=== PATIENT | female | born 1950 | race Caucasian/White ===

== ENCOUNTER 2020-04-07 11:11 | Emergency (ER) | payer MEDICARE, SELFPAY ==
[2020-04-07 11:14] VITALS: BP 153/82; PULSE 99; RESP 20; TEMP 35.8; O2SAT 98
--- NOTE | 2020-04-07 12:37 | XR_ITS ---
EXAMINATION: XR CHEST CLINICAL INFORMATION: Difficulty breathing COMPARISON: Previous chest x-ray May 2015 TECHNIQUE: Frontal view of the chest was obtained. FINDINGS: The cardiac and mediastinal contours are stable. The lungs are clear. There is no pleural effusion or pneumothorax. There are surgical anchors projecting over the left humeral head. XR/XR chest 1V IMPRESSION: No evidence for acute disease in the chest.
--- NOTE | 2020-04-07 12:57 | PC.NURSE ---
Patient reporting SOB, headaches, and flu like symptoms. Well appearing, ambulates with balanced and steady gait. Skin PWD. Swabbed patient for respiratory panel. Pt aware of plan for imaging. Awaiting results.
--- NOTE | 2020-04-07 13:12 | ED_ITS ---
HPI - URI/Sore Throat General Chief Complaint: Dyspnea Stated Complaint: SOB,LEG PAINS,WEAK,HEADACHE Time Seen by Provider: 04/07/20 12:36 Source: patient Mode of arrival: ambulatory Limitations: no limitations History of Present Illness HPI Narrative: 70 y/o female with history of anxiety, depression, former smoker who presents with generalized malaise, myalgias, dry cough, and SOB x 9 days. She is concerned she has COVID-19. She is up to date on her flu vaccine. She denies known COVID-19 exposure. She lives with her who is healthy. She denies fevers, chest pain, abd pain, N/V/D. She admits to chills, mild SCOTT more than her baseline and upset stomach at times. She is eating and drinking normally. MD elicited complaint: cough Onset (ago): day(s) (9) Consistency: constant Severity: moderate Able to tolerate fluids by mouth: Yes Exacerbating factors: exertion Relieving factors: cough suppressant Associated symptoms: chills, myalgias, headache, nasal congestion, cough and shortness of breath Treatments prior to arrival: none Related Data Home Medications Medication Instructions Recorded Confirmed lorazepam 1 tab PO BID 04/07/20 04/07/20 oxycodone-acetaminophen 1 tab PO Q12H PRN 04/07/20 04/07/20 sertraline 2 tab PO DAILY 04/07/20 04/07/20 Allergies Allergy/AdvReac Type Severity Reaction Status Date / Time No Known Allergies Allergy Unverified 01/30/20 16:05 [No Known Allergies*] Review of Systems Review of Systems: Constitutional: No Fever, + Chills ENT/Mouth: No sore throat, No Rhinorrhea, No Swallowing Difficulty Eyes: No Eye Pain, No Swelling, No Redness Cardiovascular: No Chest Pain, + SOB, No Orthopnea, No Edema Respiratory: + Cough, No Sputum, No Wheezing, + dyspnea Gastrointestinal: No Nausea, No Vomiting, No Diarrhea, No abdominal Pain Genitourinary: No Dysuria, No Urinary Frequency, No Hematuria Musculoskeletal: No joint pain, + Myalgias Skin: No Skin Lesions, No rash Neuro: + Weakness, No Numbness, No Dizziness, + Headache Psych: No Anxiety/Panic, No Depression Heme/Lymph: No Bruising, No Lymphadenopathy Endocrine: No Polyuria, No Polydipsia [facility] Past Medical History Attestation statement: The following information was validated with the patient. Medical History Anxiety Arthritis Depression Osteoporosis Social History Social History Alcohol intake: never Smoking Status: Unknown if ever smoked Use of substances other than those prescribed or required for medical reasons: No Advance Directives: No Advance Directives Information Provided: Yes Physical Exam Vital Signs: Vital Signs: Last Vital Signs Temp 96.4 F L 04/07/20 11:14 Pulse 99 04/07/20 11:14 Resp 20 04/07/20 11:14 BP 153/82 H 04/07/20 11:14 Pulse Ox 98 04/07/20 11:14 Body Mass Index 30.0 Appearance: Alert. Oriented X3. No acute distress. Appears non-toxic Eyes: Pupils equal, round and reactive to light. ENT: Pharynx normal. Neck: Normal inspection. Neck supple. CVS: Normal heart rate and rhythm. Pulses normal. Respiratory: No respiratory distress. Breath sounds normal. Abdomen: obese, Soft and nontender. +BS x4 Skin: Skin warm and dry. Normal skin color. Normal skin turgor. No rashes. Extremities: No lower extremity edema. Neuro: Oriented X 3. No motor deficit. No sensory deficit. Course Course Course Narrative: 70 y/o female presenting with symptoms concerning for COVID- 19. She appears well and vitals are stable. Lungs are clear. CXR and resp panel pending. Reevaluation(s) Reevaluation #1: CXR and resp panel are negative. It is likely her symptoms are viral in etiology. She is tolerating PO, vitally stable and appears well. She is stable for discharge with symptomatic management. She will f/u with her PCP next week. MDM - URI/Sore Throat Differential Diagnosis Differential diagnosis: Likely upper respiratory infection, croup, otitis media, sinusitis, viral infection, bronchitis, influenza and pharyngitis Medical Records Attestation: I reviewed the patient's medical records. Lab Data Attestation: I reviewed the patient's lab results. Labs: Lab Results 04/07/20 Range/Units 12:50 Coronavirus (PCR) NEGATIVE (Negative) Influenza Type A (PCR) NEGATIVE (Negative) Influenza Type B (PCR) NEGATIVE (Negative) RSV RNA Qual (PCR) NEGATIVE (Negative) Critical Care Time Critical Care Time Critical Care Time: No Discharge Plan Discharge Clinical Impression: Acute viral syndrome Patient Disposition: Home, Self-Care Instructions: Viral Syndrome (ED) Additional Instructions: Your chest x-ray was normal. Your COVID-19, influenza and RSV panel was NEGATIVE. It is likely your symptoms are from another type of viral syndrome. Continue to stay hydrated. Rest. Take over the counter cold and flu medications as needed for your symptoms. Use your inhaler as needed for shortness of breath. Follow up with your doctor this week. If you have worsening symptoms, or develop difficulty breathing or chest pain call 911 or come back to the ER for further evaluation. Prescriptions: No Action sertraline 100 mg tablet 2 tab PO DAILY RF: 0 oxycodone-acetaminophen 5-325 mg tablet 1 tab PO Q12H PRN (Reason: pain) RF: 0 lorazepam 1 mg tablet 1 tab PO BID RF: 0 Discharge Date/Time: 04/07/20 15:20
[2020-04-07 13:50] LABS: Influenza A PCR NEGATIVE (Negative); Influenza B PCR NEGATIVE (Negative); Resp Syncy Virus RNA Qual PCR NEGATIVE (Negative); SARS COV2 PCR INHOUSE NEGATIVE (Negative)
== END 2020-04-07 15:20 | disposition home or self-care (01) ==
PROVIDERS: Physician Assistant; Emergency Provider Emergency Medicine Emergency Medical Services; PCP Internal Medicine
DX: B34.9 Viral infection, unspecified (principal); R05 Cough; M79.605 Pain in left leg; M79.604 Pain in right leg; Z20.828 Contact with and (suspected) exposure to other viral communicable diseases; Z79.899 Other long term (current) drug therapy
CPT/HCPCS: 0241U; 71045; 99283

== ENCOUNTER 2023-06-19 08:02 | Outpatient (AMB) | payer MEDICARE, SELFPAY ==
[2023-06-19 08:13] VITALS: BP 128/74; PULSE 80; TEMP 36.6; O2SAT 97; BMI 31.8
--- NOTE | 2023-06-19 08:13 | AM.OFFWIN_ITS ---
Intake Vital Signs 06/19/23 08:13 Height 5 ft 4 in Weight 83.915 kg BMI 31.8 BP 128/74 Blood Pressure Location Lt brachial Position Sitting Pulse 80 Pulse Source Pulse Oximeter Temp 97.9 F Temp Source Oral Pulse Oximetry (%) 97 Oxygen Delivery Method Room Air Intake Visit Reasons: EST/possible bite on lip (lobby) Intake Note: pt is here for c.o possible infection in lip, redness, swelling Patient Tobacco Use Status: Former Tobacco user Allergies No Known Allergies [No Known Allergies*] Allergy (Verified 06/19/23 08:14) Do you need a note to return to daycare/school/sports/work: No HPI HPI Comments History of Present Illness Details [id number] 73-year-old female presents with redness below right nares and into right upper lip started a few days ago after she popped a pimple but she has not sure if something bit her. Denies fevers, chills, numbness, tingling, difficulty breathing. Patient is not on an NURA inhibitor Physical exam Pharynx normal. Patent airway. Uvula midline. Normal dentition no abscess. Speaking in full sentences controlling secretions well ?+ patient is noted to have folliculitis to the distal aspect of nares with overlying erythema and warmth in associated swelling to right upper lip. Likely folliculitis with superimposed cellulitis. Unlikely necrotizing infection, dental abscess, angioedema, anaphylaxis, acute respiratory distress, threat to airway. Educated patient on diagnosis and treatment plan, answered all question, patient verbalizes understanding. At this time patient will be discharged home, advised to return with new or worsening symptoms. Educated on worrisome signs and symptoms and when to return. At this time I feel comfortable discharge home. [facility] Medical History Arthritis Osteoporosis Depression Anxiety Social History Alcohol intake: never Patient Tobacco Use Status: Former Tobacco user Review of Systems Const Details: Constitutional : No Weight loss, No Fever, No Chills, No Fatigue, No Malaise ENT/Mouth : No sore throat, No Rhinorrhea Eyes: No Eye Pain, No Swelling, No Redness Cardiovascular : No Chest Pain, No SOB, No Dyspnea on Exertion, No Orthopnea, No Edema, No Palpitations Respiratory : No Cough, No Sputum, No Wheezing Gastrointestinal : No Nausea, No Vomiting, No Diarrhea, No Constipation, No abdominal Pain, No Hematochezia, No Melena Genitourinary : No Dysuria, No Urinary Frequency, No Hematuria, Musculoskeletal : No joint pain, No Myalgias, No Joint Swelling Skin : + Skin Lesions, No rash Neuro : No Weakness, No Numbness, No Dizziness, No Headache Psych : No Anxiety/Panic, No Depression All other systems reviewed and are negative All systems reviewed & are unremarkable except as noted in HPI and below Physical Exam Vital Signs: Last Vital Signs Temp 97.9 F 06/19/23 08:13 Pulse 80 06/19/23 08:13 BP 128/74 06/19/23 08:13 Pulse Ox 97 06/19/23 08:13 Oxygen Delivery Method Room Air 06/19/23 08:13 BMI result Body Mass Index 31.8 Vital signs stable Appearance: Alert.? Oriented X3.? No acute distress.? Head: Normocephalic, atraumatic, no step-offs or deformities Eyes: Pupils equal, round and reactive to light.? ENT: Pharynx normal. Patent airway. Uvula midline. Normal dentition no abscess. Speaking in full sentences controlling secretions well ?+ patient is noted to have folliculitis to the distal aspect of nares with overlying erythema and warmth in associated swelling to right upper lip. Neck: Normal inspection.? Neck supple.? CVS: Normal heart rate and rhythm.? Pulses normal.? Respiratory: No respiratory distress.? Breath sounds normal.? Abdomen: Soft and nontender.? Skin: Skin warm and dry.? Normal skin color.? Normal skin turgor.? Extremities: No lower extremity edema.? No calf ttp. 5/5 strength to bilateral upper and lower extremities Back: No midline tenderness, no C-spine tenderness, full range of motion, no CVA tenderness bilaterally Neuro: Oriented X 3.? No motor deficit.? No sensory deficit. CN 2-12 intact Assessment & Plan Assessment & Plan (1) Folliculitis: Code(s): L73.9 - Follicular disorder, unspecified (2) Cellulitis: Code(s): L03.90 - Cellulitis, unspecified Plan Take your medications as prescribed. If you were prescribed antibiotics today, it is important that you take your medication to their entirety, do not skip any doses, do not finish them early. Follow-up with your primary care provider this week. Return to the emergency department with new or worsening symptoms. Such as fevers, chills, chest pain, shortness of breath, nausea, vomiting, dizziness, headache, vision changes, lethargy In case of emergency call 911 Medications: New doxycycline hyclate 100 mg PO BID 14 caps 0RF 7 days cephalexin 500 mg PO QID 28 caps 0RF 7 days Coding Level of Care Code Est Pt Level 3 (83206) Diagnoses Folliculitis L73.9 Cellulitis L03.90
== END 2023-06-19 08:38 | disposition home or self-care (01) ==
PROVIDERS: PCP Internal Medicine; Visit Provider Physician Assistant
DX: L73.9 Follicular disorder, unspecified (principal); L03.90 Cellulitis, unspecified
CPT/HCPCS: 99213

== ENCOUNTER 2024-06-05 13:50 | Outpatient (AMB) | payer MEDICARE, SELFPAY ==
--- NOTE | 2024-06-05 14:00 | A.SPINEOV_ITS ---
Vital Signs 06/05/24 14:23 Height 5 ft 4 in Weight 179 lb BMI 30.7 Intake Visit Reasons: lower back pain Intake Note: Ms. David is here today c/o Low back pain. Manager Documentation Required: No Allergies No Known Allergies [No Known Allergies*] Allergy (Verified 06/05/24 14:27) Physical Exam Vital Signs: BMI result Body Mass Index 30.7 Assessment & Plan Assessment & Plan (1) Lumbago: Code(s): M54.50 - Low back pain, unspecified Category: Medical Plan Dear colleague, Thank you for referring Haydee to our office today. She is a pleasant 74-year-old female who comes in today with a chief complaint of low back pain and intermittent pains in her bilateral lower extremities. She had a somewhat difficult time describing her history. She does not describe her lower extremity pain as a shooting or radicular pain, but states that she gets random shots of pain down her legs and into her back intermittently. She was unable to elaborate further about this. She states that her back pain is worse than her leg pain by far. Alongside this, she reports her other most troubling symptoms that she has constant numbness and tingling in her bilateral toes, worse on the left side. She states that it is difficult for her to walk long distances and she is only able to walk about half a block without needing to stop and rest. If she is able to stop and rest and sit for a while she can get back up and continue walking. She states that positionally walking causes her the worst pain in her back, & laying down helps relieve her pain the most. She has been to physical therapy but could only complete 6 sessions due to the pain. She has attempted cortisone injections with [facility] in [place], but reports she obtained little to no relief from the injections. She is unsure what levels she had injections at. She has also attempted care management assistant in the past. She is currently taking oxycodone, gabapentin and Tylenol all in an effort to help mitigate her pain. She has been evaluated by a neurosurgeon in the past, who was unable to offer any specific intervention to relieve these symptoms. PMH: Asthma, depression, hypothyroidism, vitamin-D deficiency, unspecified left knee surgery, unspecified finger surgery, left rotator cuff repair. Social hx: The patient does not smoke, reports no substance use. Medications: See [facility] list. Allergies: NKDA. Physical exam: The patient has 5/5 strength in her upper and lower extremities. She ambulates without an antalgic or spastic gait but does have to brace herself on the chair in order to rise from seated position. No significant sensational deficits. Reflexes are 1+ hypoactive in the bilateral patella. They are 2+ normal elsewhere. (-) Morley's, (-) clonus, (-) bilateral straight leg raise. Imaging review: MRI of the lumbar spine completed at [facility] in March of 2024 shows posterior disc bulge at L5-S1 causing moderate right- sided and severe left-sided foraminal stenosis. No significant central canal stenosis. Impression: Haydee is a pleasant 74-year-old female who comes in today with a chief complaint of low back pain, intermittent unspecified leg pains with ambulation, and bilateral toe numbness. The only real meaningful pathology I am able to identify on her MRI imaging is a posterior disc bulge at L5-S1 that is causing bilateral foraminal stenosis. Typically if this were a patient was suffering from neurogenic claudication there would also be a relatively significant degree of central canal stenosis. I would expect a patient with her imaging to have well-defined radicular pain worse in the left side. This does not appear to be the case with Haydee, who predominantly has low back pain and does not seem to be suffering from any specific radicular pain down her legs. Due to lack of consistency between her reported history in her imaging I would like to obtain her injection records from [facility] to see if the L5-S1 area was addressed. If she had injections here already which did not provide her with any relief then I do not believe she has a good surgical candidate at this time. If she has not had injections there as of yet, I would be inclined to refer her for an epidural steroid injection at this level to see if it does in fact relieve her pain, thereby making it a more reasonable surgical target. I will call and update the patient once we have her records. Thank you for allowing us to care for your patient. The total time spent with this visit with this patient was 45 minutes reviewing history, physical exam, MRI imaging review, and implementation of treatment plan or further diagnostic testing Pastor Chen MD,PhD [facility] Coding Level of Care Code New Pt Level 4 (49732) Diagnoses Lumbago M54.50
[2024-06-05 14:23] VITALS: BMI 30.7
== END 2024-06-05 14:56 | disposition home or self-care (01) ==
PROVIDERS: PCP Internal Medicine; Referring Provider Internal Medicine; Visit Provider Physician Assistant
DX: M54.50 Low back pain, unspecified (principal)
CPT/HCPCS: 99204

== ENCOUNTER → 2024-06-05 13:50 | Outpatient (BNVA) | payer MEDICARE, SELFPAY | PROVIDERS: PCP Internal Medicine; Referring Provider Internal Medicine; Visit Provider Physician Assistant | DX: M54.50 Low back pain, unspecified (principal) | CPT/HCPCS: 99202 ==

== ENCOUNTER 2024-08-01 10:24 | Outpatient (AMB) | payer MEDICARE, SELFPAY ==
--- NOTE | 2024-08-01 10:25 | A.SPINEOV_ITS ---
Intake Visit Reasons: discuss sx Intake Note: Ms. David is here today to discuss surgery. Chief Credit Officer Required: No Allergies No Known Allergies [No Known Allergies*] Allergy (Verified 08/01/24 10:27) Assessment & Plan Assessment & Plan (1) Lumbago: Code(s): M54.50 - Low back pain, unspecified Category: Medical Plan HPI: Haydee comes in today for a subsequent office visit to discuss the possibility of surgery. To recap she has DDD with a posterior disc bulge at L5- S1. Her images were reviewed by Dr. Chen who is willing to offer her a L5- S1 TLIF to address both the posterior disc bulge and the degeneration. She reports continued fairly severe low back pain and some intermittent leg pain bilaterally. We discussed the proposed surgical procedure using the spine models that we have in office today. I described the surgical approach, the instrumentation that will be used, and the postoperative healing course. She was accompanied by her son to this visit and they both asked several questions regarding the surgery, all of which I answered to the best of my ability. PMhx: The patient reports no changes to her past medical history. She reports no history of anticoagulation, does not take aspirin, and has no cardiovascular or pulmonary conditions, other than intermittent asthma. Medication: Patient reports no changes in her current medication regimen. Allergies: The patient reports no changes to her allergies. Plan: After extensive discussion, Haydee reported she would like to proceed with surgery. She will likely need multimodal pain control after surgery as she is currently on Oxycodone 5mg QID for her severe low back pain, and the chronic pain she has in her left knee and left shoulder (Hx left patella fracture & left rortator cuff repair). She understands she will need to stop Meloxicam 7 days before surgery. Devaughn was given risk and benefits of surgery including but not limited to infection, hematoma, nerve injury, durotomy, weakness, bowel/bladder injury, persistent pain, as well as the option to continue with conservative treatment and patient wishes to proceed with surgery. They are aware they should stop NSAIDs 7 days prior to surgery. All questions were answered to the best of our ability. If there is anything about this patients medical history that we have overlooked or concerns you have about us proceeding with surgery we would appreciate any input you can offer. Pastor Chen MD,PhD [facility] Coding Level of Care Code Est Pt Level 3 (74417) Diagnoses Lumbago M54.50
--- OUTSIDE RECORDS SUMMARY | 2024-08-01 11:53 | XMS_ITS | Data Portability ---
Author Organization ELENA drake [facility] Address [address] [place] [address] Care Team Providers Care Information Operator Name Role Phone DARLENE MCCABE Primary Care Provider [phone] Assessment Encounter Date Assessment Date Assessment LastModified by Organization Details LastModified Time 07/15/2022 07/15/2022 Patient was seen in the office today for nausea. Reviewed history regarding recent illness, medications, symptoms, and physical exam. Studies ordered as below. Discussed plan with , who expresses understanding . Follow up as noted below. [email or web address] Not available 07/15/2022 14:04:42 Plan of Treatment Reminders Order Date Submit Date Provider Last Modified By Organization Details Last Modified Time Details Appointments None recorded. Lab urinalysis, dipstick 2022 023 [email or web address] 247 _[facility], [address] [place] [address], [phone], 3 15:59:10 glucose, fingerstick , blood 2022 023 [email or web address] 247 _[facility], [address] [place] [address], [address], 15:59:10 Referral None recorded. Procedures None recorded. Surgeries None recorded. Imaging electrocard iogram 2022 023 [email or web address] [address], [address], 16:15:59 Medication Orders None recorded. Patient TargetsNo targets recorded. Patient Instructions Encounter Date Encounter Id Patient Instructions Last Modified By Organization Details Last Modified Time 07/15/2022 [id number] Try small amount s of clear liquids frequently. If vomiting occurs, wait 30-60 minutes before trying clear liquids again. Once you are able to tolerate clear liquids for at least 6 hours without vomiting, you can advance to a soft diet consisting of foods such as bananas, rice, applesauce, toast, crackers, and other foods rich in carbohydrates and low on fats and spices. If the diet is tolerated for 12-24 hours, you can slowly add other foods to your diet. If vomiting occurs, you should go back to clear liquids only and work your way back to a normal diet as outlined above. If much worse, you should seek treatment immediately. [email or web address] Not available 07/15/2022 14:04:42 Reason for Referral None Reported. Results Created Date Observation Date Name Description Value Unit Range Abnormal Flag Note LastModifiedBy Organization Detail LastModifiedTime 07/16/1907/15/2022 gluco ion reale rstic k, blood blood sugar - non fasting 97 mg/dL 80-140 = normal normal Not Available maegan [address] [place], [address], 07/15/2022 15:17:54 07/16/1907/15/2022 gluco se finge rstic k, blood blood sugar - fasting mg/dL 80-125 = normal Not Available maegan [address] [place], [address], 07/15/2022 15:17:54 07/16/1907/15/2022 urina lysis , dipst ick Unknown Analyte Normal = light yellow Not Available arlyn bowers [address] [place], [address], 07/15/2022 14:33:59 07/16/1907/15/2022 urina lysis , dipst ick Unknown Analyte Yellow Not Available maegan [address] [place], [address], 07/15/2022 14:33:59 07/16/19 23 07/15/2022 urina lysis , dipst ick Unknown Analyte Normal = clear Not Available arlyn bowers [address], [place], [address], 07/15/2022 14:33:59 07/16/19 23 07/15/2022 urina lysis , dipst ick Unknown Analyte Clear Not Available maegan [address], [place], [place], [address], 07/15/2022 14:33:59 07/16/19 23 07/15/2022 urina lysis , dipst ick Unknown Analyte Normal = negati ve Not Available arlyn bowers [address], [place], [address], 07/15/2022 14:33:59 07/16/19 23 07/15/2022 urina lysis , dipst ick Unknown Analyte Negati ve Not Available arlyn bowers [address], [place], [address], 07/15/2022 14:33:59 07/16/19 23 07/15/2022 urina lysis , dipst ick Unknown Analyte Normal = Negati ve Not Available arlyn bowers [address], [place], [address], 07/15/2022 14:33:59 07/16/19 23 07/15/2022 urina lysis , dipst ick Unknown Analyte Negati ve Not Available arlyn bowers [address], [place], [address], 07/15/2022 14:33:59 07/16/19 23 07/15/2022 urina lysis , dipst ick Unknown Analyte Normal = Negati ve Not Available arlyn bowers [address], [place], [address], 07/15/2022 14:33:59 07/16/19 23 07/15/2022 urina lysis , dipst ick Unknown Analyte Negati ve Not Available [address]arlyn [address], [place], [address], 07/15/2022 14:33:59 07/16/19 23 07/15/2022 urina lysis , dipst ick Unknown Analyte Normal = 1.010, 1.015, 1.020 Not Available [address] [place] [address], [place], [address], 07/15/2022 14:33:59 07/16/19 23 07/15/2022 urina lysis , dipst ick Unknown Analyte 1.020 Not Available [address], [place], [address], 07/15/2022 14:33:59 07/16/19 23 07/15/2022 urina lysis , dipst ick Unknown Analyte Normal = Negati ve Not Available [address] [place] [address], [place], [address], 07/15/2022 14:33:59 07/16/19 23 07/15/2022 urina lysis , dipst ick Unknown Analyte Trace- intact Not Available [address] [place] [address], [place], [address], 07/15/2022 14:33:59 07/16/19 23 07/15/2022 urina lysis , dipst ick Unknown Analyte Normal = 6.5, 7.0, 7.5, 8.0 Not Available [address] [place] [address], [place], [address], 07/15/2022 14:33:59 07/16/19 23 07/15/2022 urina lysis , dipst ick Unknown Analyte 7.0 Not Available maegan [address], [place], [address], 07/15/2022 14:33:59 07/16/19 23 07/15/2022 urina lysis , dipst ick Unknown Analyte Normal = Negati ve Not Available arlyn bowers [address], [place], [place], [address], 07/15/2022 14:33:59 07/16/19 23 07/15/2022 urina lysis , dipst ick Unknown Analyte Negati ve Not Available arlyn bowers [address], [place], [place], [address], 07/15/2022 14:33:59 07/16/19 23 07/15/2022 urina lysis , dipst ick Unknown Analyte Normal = 0.2, 1.0 Not Available arlyn bowers [address], [place], [place], [address], 07/15/2022 14:33:59 07/16/19 23 07/15/2022 urina lysis , dipst ick Unknown Analyte 0.2 E.U./d L Not Available arlyn bowers [address], [place], [address], 07/15/2022 14:33:59 07/16/19 23 07/15/2022 urina lysis , dipst ick Unknown Analyte Normal = Negati ve Not Available arlyn bowers [address], [place], [address], 07/15/2022 14:33:59 07/16/19 23 07/15/2022 urina lysis , dipst ick Unknown Analyte Negati ve Not Available arlyn bowers [address], [place], [address], 07/15/2022 14:33:59 07/16/19 23 07/15/2022 urina lysis , dipst ick Unknown Analyte Normal = Negati ve Not Available [facility] [address] [facility], [place], [address], 07/15/2022 14:33:59 07/16/19 23 07/15/2022 urina lysis , dipst ick Unknown Analyte Negati ve Not Available 20[address] [address] [facility], [place], [address], 07/15/2022 14:33:59 07/16/19 23 07/15/2022 elect aarti ruizgr am No observ ation record ed. [id number] [address], [place], [address], 07/15/2022 15:59:11 Result Notes None recorded. Problems Name Problem SNOMED Code Status Onset Date Resolution Date Notes Provider Name and Address Organization Details Recorded Time Anxiety 53437514 Active 2022 Cahna diaz, [place] - [facility] 14:07:42 Fibromyalgia 841184904 Active 2022 Chana diaz, PA - [facility] 14:07:57 Arthritis 7115306 Active 2022 Chana Coyle null, PA - [facility] 14:08:03 Hypothyroidism 85279341 Active 2022 Chana Coyle null, PA - [facility] 14:08:11 Sleep apnea 21768001 Active 2022 Chana diaz, PA - [facility] 14:09:13 Problem Notes None recorded. Procedures Surgical History Date Name Laterality Status Provider Name and Address Organization Details Recorded Time operative procedure on knee completed Chana Coyle PA - [facility] 07/15/2022 14:09:51 hernia repair completed Chana Garciajessica Brunson A - [facility] 07/15/2022 14:09:56 procedure on shoulder completed Chana Hallpardeep PA - [facility] 07/15/2022 14:10:30 repair of finger completed Chana Garciajessica PA - [facility] 07/15/2022 14:10:43 Imaging Results Imaging Date Name Status LastModified by Organization Details LastModified Time 07/15/2022 electrocardiogram completed [id number] [address], [place], [address], 07/15/2022 15:59:11 Procedure Notes None recorded. Medical Equipment None Reported. Allergies No known drug allergies Medications Name Sig Start Date Stop Date Status Note LastModified by Organization Details LastModified Time doxycycline hyclate 100 mg capsule TAKE 1 CAPSULE BY MOUTH TWICE DAILY FOR 7 DAYS FOR INFECTION 07/15 completed Not Available Not Available Not Available tizanidine 4 mg tablet TAKE 1 TABLET BY MOUTH THREE TIMES DAILY NEEDED active Not Available Not Available No t Available meloxicam 15 mg tablet TAKE 1 TABLET BY MOUTH DAILY active Not Available Not Available No t Available prednisone 20 mg tablet PLEASE SEE ATTACHED FOR DETAILED DIRECTION S 07/15 completed Not Available Not Available Not Available sertraline 100 mg tablet TAKE 2 TABLETS BY MOUTH DAILY active Not Available Not Available No t Available sulfamethox azole 800 mg-trimetho prim 160 mg tablet TAKE 1 TABLET BY MOUTH TWICE DAILY FOR 5 DAYS 07/15 completed Not Available Not Available Not Available levothyroxi ne 25 mcg tablet TAKE 1 TABLET BY MOUTH DAILY active Not Available Not Available No t Available oxycodone-a cetaminophe n 5 mg-325 mg tablet TAKE 1 TABLET BY MOUTH DAILY NEEDED FOR PAIN active Not Available Not Available No t Available amoxicillin 875 mg tablet TAKE 1 TABLET BY MOUTH TWICE DAILY FOR 10 DAYS FOR INFECTION 07/15 completed Not Available Not Available Not Available lorazepam 0.5 mg tablet TAKE 1 TABLET BY MOUTH DAILY NEEDED FOR ANXIETY active Not Available Not Available No t Available cephalexin 500 mg capsule TAKE 1 CAPSULE BY MOUTH THREE TIMES DAILY 07/15 completed Not Available Not Available Not Available betamethaso ne dipropionat e 0.05 % topical cream APPLY SMALL AMOUNT TOPICALLY TO THE AFFECTED AREA TWICE DAILY 07/15 completed Not Available Not Available Not Available gabapentin 100 mg capsule TAKE 1 CAPSULE BY MOUTH THREE TIMES DAILY 07/15 completed Not Available Not Available Not Available lorazepam 1 mg tablet TAKE 1 TABLET BY MOUTH EVERY DAY NEEDED FOR ANXIETY FOR 14 DAYS THEN TAKE ONE-HALF TABLET BY MOUTH EVERY DAY Q00OWDR THEN STOP 07/15 completed Not Available Not Available Not Available nitrofurant oin monohydrate /macrocryst als 100 mg capsule TAKE 1 CAPSULE BY MOUTH TWICE DAILY FOR 5 DAYS 07/15 completed Not Available Not Available Not Available BinaxNOW COVID-19 Ag Self Test kit FOLLOW PACKAGE DIRECTION S 07/15 completed Not Available Not Available Not Available Vitals Date Recorded Body height Body mass index (BMI) Body weight Pain severity - 0-10 verbal numeric rating [Score] - Reported Oxygen saturation Oxygen saturation in Arterial blood by Pulse oximetry Heart rate Respiratory rate Body temperature Systolic blood pressure Diastolic blood pressure Provider Name and Address Organization Details Last Updated DateTime 3 162.56 cm 30.9 kg/m2 70867.6 3 g 8 97 % 97 % 108 /min 18 /min 98 [degF] 139 mm[Hg] 89 mm[Hg] Chana PARKER [facility] 14:14:42 Social History Question Answer Notes LastModified by Organizat ion Details LastModified Time Tobacco Smoking Status Former Smoker ELENA Shen [facility] 07/15/2022 14:09:06 What Is Your Level Of Alcohol Consumption? Occasional Once A Month Information not available 07/15/2022 When Did You Quit Smoking? 11-15yearssinc elastcigarette Information not available 07/15/2022 Do You Use Any Illicit Or Recreational Drugs? No Information not available 07/15/2022 Have You Recently Traveled Abroad? No Information not available 07/15/2022 Do You Or Have You Ever Used Any Other Forms Of Tobacco Or Nicotine? No Information not available 07/15/2022 Sex: Unknown Functional Status None recorded. Mental Status None recorded. Family History Relationship Description Onset Age of this Age Resolved Age Notes LastModified by Organization Details LastModified Time Sister Diabetes mellitus [email or web address] Not available 2022 14:14:57 Medical History No medical history recorded. Gynecological HistoryNo gynecological history recorded. Obstetrics History GPAL:G 0 P 0 0 0 0 Past Encounters Encounter ID Performer Location Encounter Start Date Encounter Closed Date Diagnosis/Indication Diagnosis SNOMED-CT Code Diagnosis ICD10 Code Diagnosis Note [id number] [facility] [address] [place] [address] 03/31/2022 08:30:00 03/31/2022 09:20:42 [id number] [facility] [address] [place] [address] 01/06/2020 13:46:27 01/06/2020 15:52:51 [id number] AMBROSIO DUARTE MD [facility] [address] [place] [address] 07/15/2022 13:53:35 07/15/2022 16:15:59 Elevated blood-pressure reading without diagnosis of hypertension 449326711 R03.0 Lightheadedness 27319252 8 R42 Health Concerns Section Related Observation LastModified by Organization Detai ls LastModified Time None Recorded Concern Status LastModified by Organization Details LastModified Time None Recorded Advance Directives Directive None Recorded Payers Encounter Date Sequence Insurance Name Policy Number Policy Moreira Covered Member ID Moreira Member ID Guarantor Name 01/06/2020 1 [employer] - MEDICARE ADVANTAGE PLAN (MEDICARE REPLACEMENT HMO) [id number] Haydee David [id number] Haydee David 03/31/2022 1 [employer] - MEDICARE ADVANTAGE PLAN (MEDICARE REPLACEMENT HMO) [id number] Haydee David [id number] Haydee David 07/15/2022 1 [employer] [place] [place] MEDICARE ADVANTAGE [facility] (MEDICARE REPLACEMENT HMO) [id number] Haydee David [id number] Haydee David Notes Date Note Type Note Provider Name and Address Organization Details Recorded Time 07/15/2022 text/html Dizziness UCReported bypatient.Duration :intermittent episodes lasting: (few seconds each) Modifying Factors:change in position Associated Symptoms:no blurred vision; no foggy vision; no double vision; no eye pain; no hearing loss; no headache; no nausea; no vomiting; no facial numbness;popping noise in the ears;ears feel full;unsteadiness; anxiety or unsteady feelingsHypertensi on UCReported bypatient.source of patient informationpatient Notes:The elevated BP was noticed at another Doctor's office. She is receiving no medications for this. shakiness x3 days, headache, rapid heart rate, clammy, weak, and unsteady on feet since this am, pt vomited this am as well. Seen by another Doctor today for a back shot but could not get it because her blood press was too high. She was sent here for evaluation of he BP and dizziness. AMBROSIO DUARTE MD [address] [facility], [address], [place] - [facility] 07/15/2022 17:14:55 OBGyn Episode No OBEpisode recorded.
--- OUTSIDE RECORDS SUMMARY | 2024-08-01 11:53 | XMS_ITS | Clinical Summary ---
Author Organization [facility] [address] [facility] Address [address] [facility] [place] [address] Phone Care Team Providers Care Control Room Technician Name Role Phone Maya Wiggins MD Primary Care Provider [phone] Allergies Active Allergy Reactions Criticality Noted Date Comments Amoxicillin-Pot Clavulanate 02/11/20 20 Duloxetine Itching 07/11/2013 Escitalopram Itching 08/31/2015 Fluoxetine 09/28/2015 Disturbing dreams, nausea Risedronate Sodium 08/03/2005 hives Venlafaxine Itching 11/08/2012 Medications sertraline (ZOLOFT) 100 mg tablet Take 2 tablets (200 mg total) by mouth 1 (one) time each day. 05/03/20 23 Active diclofenac (VOLTAREN) 1 % topical gel Apply 2 g topically 2 times daily as needed (Pain). 01/14/20 23 Active CALCIUM-VITAMI N D3-MAGNESIUM ORAL Take by mouth. CALCIUM-MAGNE SIUM-VITAMIN D 500-250-125 MG-MG-UNIT OR TABS Active gabapentin (NEURONTIN) 100 mg capsule Take 2 capsules (200 mg total) by mouth 3 (three) times a day. 180 capsule 5 04/09/20 24 Active albuterol HFA (PROAIR HFA ; PROVENTIL HFA ; VENTOLIN HFA) 90 mcg/actuation inhaler Inhale 2 puffs by mouth every 6 (six) hours if needed for wheezing. Inhale 2 Puffs into the lungs 4 times daily as needed for Cough, Wheezing or Shortness of Breath. 6.7 g 05/22/19 25 Active ibuprofen (ADVIL,MOTRIN) 600 mg tablet Take 1 tablet (600 mg total) by mouth every 6 (six) hours if needed for mild pain or moderate pain. Take 1 Tablet by mouth every 6 hours as needed for Pain. 90 tablet 06/21/19 25 Active levothyroxine (SYNTHROID, LEVOTHROID) 25 mcg tablet TAKE 1 TABLET BY MOUTH DAILY 90 tablet 1 07/04/19 25 Active oxyCODONE-acet aminophen (PERCOCET) 5-325 mg per tablet Take 1 tablet by mouth 2 (two) times a day if needed for severe pain. Max Daily Amount: 2 tablets 56 tablet 07/10/19 25 Active LORazepam (ATIVAN) 0.5 mg tablet Take 1 tablet (0.5 mg total) by mouth 2 (two) times a day. Max Daily Amount: 1 mg 56 tablet 07/30/19 25 Active levothyroxine (SYNTHROID, LEVOTHROID) 25 mcg tablet Take 1 tablet (25 mcg total) by mouth 1 (one) time each day. 04/11/20 23 025 Discontinued LORazepam (ATIVAN) 0.5 mg tablet Take 1 tablet (0.5 mg total) by mouth 2 (two) times a day. Max Daily Amount: 1 mg 56 tablet 06/21/19 25 025 Discontinued(Re order) oxyCODONE-acet aminophen (PERCOCET) 5-325 mg per tablet Take 1 tablet by mouth 1 (one) time each day if needed for severe pain. Max Daily Amount: 1 tablet 28 tablet 06/21/19 25 025 Discontinued(Re order) Active Problems Problem Noted Date Diagnosed Date Age-related osteoporosis wit hout current pathological fracture 03/20/2024 Dysphagia 02/12/2024 Vomiting 02/12/2024 Esophageal stenosis 02/12/2024 Overview (02/12/2024): Benign-appearing on endoscopy. Dilated. 08/12/2021 Spinal stenosis of lumbar re gion with neurogenic claudication 09/23/2022 Overview (02/12/2024): Last Assessment & Plan: Ms. David describes classic symptoms of spinal stenosis. She has pulling and pain predominantly in the right buttock and posterior thigh that limits her ability to walk. The predominance of her stenosis is from epidural lipomatosis. She is not interested in surgery at this time and is going to make efforts towards weight loss. We talked about NSAIDs, physical therapy, acupuncture, yoga all as reasonable conservative treatments. She is going to make strides towards weight loss and will get back in touch with us if she would like to proceed with other treatments or surgery. Epidural lipomatosis 09/23/2022 Overview (02/12/2024): Last Assessment & Plan: Ms. David has low back pain and radiation to the right greater than left leg. She has spinal stenosis but mostly from epidural lipomatosis. We talked about weight gain and weight loss and calories in versus calories out. I recommended the book Eat to Live by Dr. Jeet Swain. We talked about the problems associated with surgery to remove epidural lipomatosis and how the significant fat stores in her body would likely replenish the epidural fat after we removed it. We talked about how if she lost some weight and still trouble, lumbar decompression surgery with removal of the epidural fat would be more reasonable. She is not interested in surgery at this time and will start making efforts towards losing weight. Acute pain of left shoulder 09/23/2022 Overview (02/12/2024): Last Assessment & Plan: Ms. David describes acute left shoulder pain especially when reaching the the arm out laterally and trying to move it backwards. I encouraged her to reach out to her primary care or her orthopedic surgeon. I showed her some exercises including walking the arm up the wall using the fingers so that she does not develop adhesive capsulitis. CASSY (stress urinary incontinence, female) 2021 Overview (02/12/2024): Last Assessment & Plan: Encouraged kegel exercises. Pulmonary nodules 02/08/2022 Overview (02/12/2024): LDCT yearly Esophageal stricture 04/26/2021 Pill dysphagia 12/24/2020 Radiculopathy of lumbosacral region 10/16/2020 Overview (02/12/2024): L5-S1, see EMG Bilateral low back pain 09/29/2020 Subclinical hypothyroidism 06/05/2020 Obese 12/13/2018 Presacral mass 06/21/2018 Overview (02/12/2024): S/p removal and hernia repair 11/2020 - Dr. De La Torre Abnormal CT scan, pelvis 04/30/2018 SCOTT (dyspnea on exertion) 08/04/2017 Overview (02/12/2024): Negative nuclear stress test. Likely COPD Obstructive sleep apnea 07/12/2017 Overview (02/12/2024): [facility] Home Polysomnogram: Date 07/10/2017; AHI 5, Unclassified apneas 0; Obstructive apneas 0; Central apneas 0; Mixed apneas 0; hypopneas 26; average oxygen saturation 94% (lowest 89% without saturations <88% for 5% or more of study) [facility] diagnostic polysomnogram 07/15/2021; weight 179; BMI 31. AHI 7. REM AHI 11. 1 central apnea and 11 hypopneas. Average oxygen saturation 94% with oxygen blu 85%. - Obstructive Sleep Apnea - mild; all hypopneas; no nocturnal hypoxemia by 2018 home sleep test and and 2021 polysomnogram. Note: 12/2019 Home Sleep Study did not reveal sleep apnea or nocturnal hypoxia. 2021 polysomnogram reveals mild sleep apnea. Fibromyalgia 03/20/2015 Overview (02/12/2024): Cymbalta and venlafaxine caused itching Generalized anxiety disorder 04/08/2013 Multiple thyroid nodules 04/25/2012 Overview (02/12/2024): Small thyroid nodules, not suspicious Knee meniscus pain 04/01/2011 Pure hypercholesterolemia 01/12/2010 Depression 04/23/2009 Idiopathic osteoporosis 02/02/2006 Overview (02/12/2024): Took - ? Boniva for a few years Last Assessment & Plan: Referral to rheumatology placed for further evaluation and possible treatment. Encounters Date Type Department Care Team Description 07/03/2024 2:30 PM EST Office Visit Adult Medicine [address] [phone] Maya Wiggins MD Fibromyalgia (Primary Dx); Spinal stenosis of lumbar region with neurogenic claudication 05/22/2024 1:00 PM EST Office Visit Adult [address] [phone] Geronimo Solis PA Arthralgia, unspecified joint (Primary Dx); Chronic use of opiate drug for therapeutic purpose; Chronic use of benzodiazepine for therapeutic purpose 05/09/2024 Telephone Adult [address] [phone] Maya Wiggins MD provider call back from Last 3 Months Immunizations Name Administration Dates Next Due COVID-19 (Moderna/Spikevax) 12yo and older 08/11/2022 H1N1 Inj Preservative Free 04/25/2009 Influenza trivalent, 0.5mL ( Fluzone High-dose) 65yo and older 05/05/2023,02/15/2021,01/24/2020,02/12,06/01/2017 Influenza trivalent, with pr eservative (Fluzone; Afluria) 6mo and older 02/21/2019,04/28/2016,01/14/2014,03/17,02/02/2012,03/29/2010,04/25/2009 ,03/12/2008,03/17/2007,04/23/2006 [employer] SARS-CoV-2 COVID-19, mRNA, LNP-S, preservative free 04/16/2021 Pneumococcal conjugate 13 va lent (Prevnar 13, PCV13) 2mo and older 03/14/2018 Pneumococcal polysaccharide 23 valent (Pneumovax 23) 2yo and older 06/21/2021 TD, Adsorbed, Preservative Free 08/30/2016 Td Tetanus diptheria (Tdvax) 7yo and older 04/28/2012,02/02/2006 Surgical History Surgery Date Site/Laterality Comments ROTATOR CUFF REPAIR -2004 PROCEDURE: HISTORICAL ROTATOR CUFF REPAIR; COMMENT: LEFT SECTION PROCEDURE: HISTORICAL DELIVERY; COMMENT: two COLONOSCOPY 03/30/2005 PROCEDURE: HISTORICAL COLONOSCOPY; COMMENT: Dr. Greene - left tics and internal hemorrhoids. Repeat 10 years. UPPER GASTROINTESTINAL ENDOSCOPY 02/28/2014 PROCEDURE: [place] UPPER GI ENDOSCOPY PERFORMED; COMMENT: Visually normal on PPI treatment. Mid esophageal biopsies obtained: normal BREAST SURGERY Bilateral PROCEDURE: [place] UNLISTED PROCEDURE BREAST; COMMENT: reduction HAND SURGERY 11/14/2019 Left PROCEDURE: HISTORICAL HAND SURGERY; COMMENT: ORIF left index finger dr. parra OTHER SURGICAL HISTORY 11/26/2020 N/A PROCEDURE: [place] RPR UMBILICAL HRNA 5 YRS/> REDUCIBLE; COMMENT: open umbilical hernia repair without mesh - Jacque Ivory MASS EXCISION 11/26/2020 PROCEDURE: HISTORICAL EXCISION OF MASS; COMMENT: laparoscopic excision of presacral mass - myelolipoma on pathology - Jacque Ivory Medical History Medical History Date Comments Idiopathic osteoporosis 02/02/2006 DX:Idiop athic osteoporosis Depressive disorder, not els ewhere classified 04/23/2009 DX:Depressive disorder, not elsewhere classified Fracture of ankle - DX:Fracture of ankle; COMMENT: LEFT Fracture of wrist -1999 DX:Fracture of wrist; COMMENT: LEFT Essential hypertension, benign 08/03/2005 D X:Essential hypertension, benign Myalgia and myositis, unspecified 08/03/2005 DX:Myalgia and myositis, unspecified Pure hypercholesterolemia 01/12/2010 DX:Pur e hypercholesterolemia SCOTT (dyspnea on exertion) 08/04/2017 DX:SCOTT (dyspnea on exertion); COMMENT: Negative nuclear stress test. Likely COPD Peripheral neuropathy due to disorder of metabolism (CMS/HCC) 01/27/2021 DX:Peripheral neuropathy due to disorder of metabolism ([facility]); COMMENT: hypothyroidism Obstructive sleep apnea DX:Obstr uctive sleep apnea Dysphagia DX:Dysphagia Vomiting DX:Vomiting Esophageal stenosis DX:Esophagea l stenosis Anxiety state DX:Anxiety state Bronchitis DX:Bronchitis Status post dilation of esop hageal narrowing DX:Status post dilation of e sophageal narrowing Pulmonary nodules 02/08/2022 DX:Pulmonary n odules; COMMENT: LDCT yearly Family History Medical History Relation Name Comments Other cancer Brother 1 testicular Heart attack Father in his 70s Stroke Maternal Grandmother Arthritis Mother Arthritis Sister 1 Colon cancer Neg Hx Ovarian cancer Neg Hx Relation Name Status Comments Brother 1 Brother 2 Brother 3 Alive Father Maternal Grandmother Mother Alive Sister 1 Sister 2 Sister 3 Alive Sister 4 Alive Social History Tobacco Use Types Packs/Day Years Used Date Smoking Tobacco: Former Cigarettes Q uit: 05/28/2015 Smokeless Tobacco: Never Tobacco Cessation:Counseling Given: Not Answered Alcohol Use Standard Drinks/Week Comments Not Currently 0 (1 standard drink = 0.6 oz pur e alcohol) Comments No Sex and Gender Information Value Date Recorded Sex Assigned at Not on file Legal Sex Female 3:59 PM EST Gender Identity Not on file Sexual Orientation Not on file Obstetrics History Last Filed Vital Signs Vital Sign Reading Time Taken Comments Blood Pressure 128/74 07/03/2024 2:33 PM EST Pulse 82 07/03/2024 2:33 PM EST Temperature 36.6 ??C (97.8 ??F) 07/03/2024 2 :33 PM EST Respiratory Rate 14 07/03/2024 2:33 PM EST Oxygen Saturation 98% 05/03/2023 1:5 9 PM EST at rest, room air Inhaled Oxygen Concentration - - Weight 83.9 kg (185 lb) 07/03/2024 2:33 PM EST Height 165.1 cm (5' 5 ) 07/03/2024 2:33 PM EST Body Mass Index 30.79 07/03/2024 2:33 PM EST Plan of Treatment Upcoming Encounters Date Type Department Care Team (Late st Contact Info) Description 08/30/2024 2:30 PM EDT Office Visit Adult Medicine [place] - [address] [phone] Maya Wiggins MD [address] [place] [address] 09/04/2024 1:50 PM EDT Appointment Radiology Department - [address] [phone] Health Maintenance Due Date Last Done Comments Zoster Vaccines (1 of 2) 2001 Colorectal Cancer Screening: Stool Based Tests (FOBT/FIT) 04/23/2022 Falls Risk Assessment 04/23/2022 Medicare Annual Wellness Visit 04/23/2022 Social Influencers of Health Screening 04/23/2022 Lung Cancer Screening (Low Dose CT) 03/23/2024 03/23/2023, 02/07/2022, 10/22/2020 Depression Screening 08/28/2024 08/29/2023 Breast Cancer Screening 08/23/2025 08/24/19 24, 05/06/2022, 03/22/2021, Additional history exists RSV Immunization Patients 60+ Years Old (1 - 1-dose 75+ series) 2026 DTaP,Tdap,and Td Vaccines (4 - Td or Tdap) 08/30/2026 08/30/2016, 04/28/2012, 02/02/2006 Cholesterol Screening (Lipid Panel) 01/05/2027 01/05/2022 Osteoporosis Screening (Bone Density Screening) 09/19/2032 09/19/2022, 08/31/2016 Hepatitis C Screening Completed 02/13/2013 COVID-19 Vaccine Completed 03/13/2024, , 08/11/2022, Additional history exists Influenza Vaccine Completed 03/13/2024, , 02/25/2022, Additional history exists Pneumococcal Vaccine: 50+ Years Completed 03/13/2024, 06/21/2021, 03/14/2018 HIB Vaccines Aged Out No longer eligi ble based on patient's age to complete this topic HPV Vaccines Aged Out No longer eligi ble based on patient's age to complete this topic Hepatitis A Vaccines Aged Out No long er eligible based on patient's age to complete this topic Hepatitis B Vaccines Aged Out No long er eligible based on patient's age to complete this topic IPV Vaccines Aged Out No longer eligi ble based on patient's age to complete this topic MMR Vaccines Aged Out No longer eligi ble based on patient's age to complete this topic Meningococcal ACWY Vaccine Aged Out N o longer eligible based on patient's age to complete this topic Meningococcal B Vacine Aged Out No lo nger eligible based on patient's age to complete this topic RSV Immunization Patients Under 20 months Aged Out No longer eligible based on patient's age to complete this topic Varicella Vaccines Aged Out No longer eligible based on patient's age to complete this topic Procedures Procedure Name Priority Date/Time Associated Diagnosis Comments BASIC METABOLIC PANEL Routine 05/22/2024 1:56 PM EST Spinal stenosis of lumbar region with neurogenic claudication THYROID STIMULATING HORMONE WITH REFLEX TO FREE T4 AND FREE T3 Routine 05/22/2024 1:56 PM EST Acquired hypothyroidism OPIATES CONFIRMATION, URINE Routine 05/22/2024 1:44 PM EST Chronic use of opiate drug for therapeutic purpose Chronic use of benzodiazepine for therapeutic purpose DRUG ABUSE SCREEN EXPANDED WITH REFLEX CONFIRMATION, URINE Routine 05/22/2024 1:44 PM EST Chronic use of opiate drug for therapeutic purpose Chronic use of benzodiazepine for therapeutic purpose DEPRESSION SCREENING Routine 08/29/2023 SCREENING MAMMOGRAPHY BI 2-VIEW BREAST INC CAD Routine 08/24/2023 4:11 PM EDT Encounter for screening mammogram for malignant neoplasm of breast CT LUNG SCREENING LOW DOSE Routine 03/23/2023 1:56 PM EST Encounter for screening for malignant neoplasm of respiratory organs DXA BONE DENSITY STUDY 1+ SITS AXIAL SKEL Routine 09/19/2022 2:58 PM EDT Age-related osteoporosis without current pathological fracture LIPID PANEL Routine 01/05/2022 HEPATITIS C SCREENING Routine 02/13/2013 from Last 3 Months or Most Recently Relevant to Health Maintenance Results * Thyroid stimulating hormone with reflex to free t4 and free t3 (05/22/2024 1:56 PM EST) TSH 1.77 0.40 - 4.00 mcIU/mL LAB CHEMISTRY METHOD 05/22/2024 5:14 PM EST [facility] Blood Venous blood specimen / Unknown Venipuncture / Unknown 05/22/2024 1:56 PM EST 05/22/2024 1:56 PM EST us Maya Wiggins MD LAB BLOOD ORDERABLES Final Resul t [facility] [address] [place] [address], [place] [phone] * (ABNORMAL) Basic metabolic panel (05/22/2024 1:56 PM EST) Pathologist [facility] Sodium 136 133 - 145 mmol/L LAB CHEMISTRY METHOD 05/22/2024 5:04 PM [facility] Potassium 4.2 3.5 - 5.5 mmol/L LAB CHEMISTRY METHOD 05/22/2024 5:04 PM [facility] Chloride 103 96 - 110 mmol/L LAB CHEMISTRY METHOD 05/22/2024 5:04 PM [facility] CO2 29 21 - 32 mmol/L LAB CHEMISTRY METHOD 05/22/2024 5:04 PM [facility] Anion Gap 4 3 - 11 LAB CHEMISTRY METHOD 05/22/2024 5:04 PM [facility] Glucose 86 70 - 100 mg/dL LAB CHEMISTRY METHOD 05/22/2024 5:04 PM [facility] BUN 19 5 - 25 mg/dL LAB CHEMISTRY METHOD 05/22/2024 5:04 PM [facility] Creatinine 1.01 0.50 - 1.10 mg/dL LAB CHEMISTRY METHOD 05/22/2024 5:04 PM [facility] eGFR 59(L) >=60 mL/min/1. 73m2 LAB CHEMISTRY METHOD 05/22/2024 5:04 PM [facility] Comment:Calculation based on the??Chronic Kidney Disease Epidemiology Collaboration (CKD-EPI) equation refit??without adjustment for race. BUN/Creatinine Ratio 18.8 LAB CHEMISTRY METHOD 05/22/2024 5:04 PM [facility] Calcium 9.6 8.5 - 10.5 mg/dL LAB CHEMISTRY METHOD 05/22/2024 5:04 PM [facility] Blood Venous blood specimen / Unknown Venipuncture / Unknown 05/22/2024 1:56 PM EST 05/22/2024 1:56 PM EST us Maya Wiggins MD LAB BLOOD ORDERABLES Final Resul t [facility] [address] [place] [address], [place] [phone] * (ABNORMAL) Drug abuse screen expanded with reflex confirmation, urine (05/22/2024 1:44 PM EST) Amphetamine Screen, Ur Negative Negative LAB CHEMISTRY METHOD 5 5:39 PM [facility] Comment:Certain OTC medicati ons containing ephedrine, phenylephrine, pseudoephedrine and phenylpropanolamine can cause false positive results. Barbiturate Screen, Ur Negative Negative LAB CHEMISTRY METHOD 5 5:39 PM [facility] Benzodiazepine Screen, Ur Negative Negative LAB CHEMISTRY METHOD 5 5:39 PM [facility] Cocaine Screen, Ur Negative Negative LAB CHEMISTRY METHOD 5 5:39 PM [facility] Opiate Screen, Ur Negative Negative LAB CHEMISTRY METHOD 5 5:39 PM [facility] Cannabinoid (THC) Screen, Ur Negative Negative LAB CHEMISTRY METHOD 5 5:39 PM [facility] Comment:Specimens from patie nts taking pantoprazole sodium (Protonix) have been shown to produce false positive results. Fentanyl, Ur Negative Negative LAB CHEMISTRY METHOD 5 5:39 PM [facility] Oxycodone Screen, Ur Positive(A ) Negative LAB CHEMISTRY METHOD 5 5:39 PM EST [facility] Urine Urine specimen obtained by clean catch procedure / Unknown Non-blood Collection / Unknown 05/22/2024 1:44 PM EST 05/22/2024 1:44 PM EST [facility]ative [facility] - 05/22/2024 5:39 PM EST Assay cutoffs: Amphetamines ? 1000 ng/mL Barbiturates ?200 ng/mL Benzodiazepines ?? 200 ng/mL Cocaine ? 300 ng/mL Fentanyl ?1 ng/mL Opiates ? 300 ng/mL Oxycodone ? 100 ng/mL THC ?50 ng/mL Semi-quantitative assay for screening purposes only. Unconfirmed screening result should not be used for non-medical purposes. *POSITIVE RESULTS ARE AUTOMATICALLY SENT FOR ALTERNATE METHOD CONFIRMATION* us Geronimo PARKER [facility] URINE ORDERABLES Final Res ult [facility] [address] [place] [address], * Opiates confirmation, urine (05/22/2024 1:44 PM EST) Morphine Confirm, Urine Negative ng/mL 05/27/2024 6:43 PM EST [facility] Codeine Confirm, Urine Negative ng/mL 05/27/2024 6:43 PM EST [facility] Hydrocodone Confirm, Urine Negative ng/mL 05/27/2024 6:43 PM EST [facility] Hydromorphone Confirm, Urine Negative ng/mL 05/27/2024 6:43 PM EST [facility] Oxycodone Confirm, Urine 420 ng/mL 05/27/2024 6:43 PM EST [facility] Oxymorphone Confirm, Urine 115 ng/mL 05/27/2024 6:43 PM EST [facility] Creatinine 36 20 - 250 mg/dL 05/27/2024 6:43 PM EST [facility] Adulterants Negative 05/27/2024 6:43 PM EST [facility] Comment: ? Confirmation (LC/MS/MS) Decision Limits ?Morphine ?25 ng/mL ?Codeine ? 25 ng/mL ?Hydrocodone ? 25 ng/mL ?Hydromorphone ? 25 ng/mL ?Oxycodone ? 25 ng/mL ?Oxymorphone ? 25 ng/mL ?Adulterant Decision Limit: ? General Oxidants ? 200 ug/mL ?The adulterant assay tests for General Oxidants, ??including Chromates and Nitrites. ??Adulterants are ??substances either ingested or added directly to a ??urine specimen to prevent the detection of drug use. If applicable, any drug confirmation testing reported here was developed and the performance characteristics determined by [facility] [place] [facility]. This confirmation testing has not been cleared or approved by the FDA. The laboratory is regulated under CLIA as qualified to perform high-complexity testing. This test is used for patient testing purposes. It should not be regarded as investigational or for research. Test performed at [facility], [facility] [place] ??[address] ? [phone] Mehnaz Hays MD, PhD - Assistant Manager Of Operations Urine Urine specimen obtained by clean catch procedure / Unknown Non-blood Collection / Unknown 05/22/2024 1:44 PM EST 05/22/2024 5:39 PM EST [facility] URINE ORDERABLES Final Res ult [facility] [address] [place] [address] * Depression Screening (08/29/2023) Depression Screening Abstracted Historical Provider HEALTH MAINTENANCE Final Result * SCREENING MAMMOGRAPHY BI 2-VIEW BREAST INC CAD (08/24/2023 4:11 PM EDT) Anatomical Region Laterality Modality Radiographic Ev ging 04/11/2022 3:14 PM EST Narrative 08/25/2023 8:09 AM EDT This is a summary report. The complete report is available in the patient's medical record. If you cannot access the medical record, please contact the sending organization for a detailed fax or copy. Exam: Screening mammogram Findings: Digital bilateral full-field screening mammography is performed with tomosynthesis and interpreted with the aid of computer-aided detection. ??Comparison is made with 05/06/2022 and as far back as 03/20/2020. ??History of bilateral reduction mammoplasty. Breast parenchyma is composed of scattered fibroglandular densities. ??No new suspicious mass, architectural distortion, or suspicious calcifications. Impression: No mammographic evidence of malignancy. BI-RADS 1 - negative Procedure Note Dora Harrington MD - 01/01/2024 This is a summary report. The complete report is available in thepatient's medical record. If you cannot access the medical record, pleasecontact the sending organization for a detailed fax or copy. Exam: Screening mammogram Findings: Digital bilateral full-field screening mammography is performedwith tomosynthesis and interpreted with the aid of computer-aideddetection. Comparison is made with 05/06/2022 and as far back as105/20/2019. History of bilateral reduction mammoplasty. Breast parenchyma is composed of scattered fibroglandular densities. Nonew suspicious mass, architectural distortion, or suspiciouscalcifications. Impression: No mammographic evidence of malignancy. BI-RADS 1 - negative us Rahul Martínez DO IMG XR PROCEDURES Final Resul t * CT LUNG SCREENING LOW DOSE (03/23/2023 1:56 PM EST) Anatomical Region Laterality Modality Computed Tomogra phy 03/16/2023 2:37 PM EDT Narrative 03/23/2023 1:56 PM EST [facility] Diagnostic Imaging Department [address] [place] [address] Patient: ??NACHO DAVID ?/Age/Sex: 1950 - 73 - F Unit#: ??[id number] ? Location/Status: ??SPDICATLS/REG CLI ? Mnemonic/Ordering Site: ??CTLUNGLD/SPCT Ordering Physician: ??SUKHJINDER OSHEA MD CT Lung Screening Low Dose - 03/16/23 - Report Status:Signed ADDENDUM Addendum: I was asked to review the patient is on CT lung screen with regards to the subcapsular splenic hematoma. COMPARISON: Outside CT scan of the abdomen dated 10/12/2022 from [place]. Current examination is extremely limited with incomplete visualization of the spleen. ??However regardless of the limited views there has been marked decrease in size of the subcapsular fluid collection. ??At the level of approximately the mid spleen the collection currently measures 7.6 cm in AP diameter by 1.3 cm transversely compared with 16.7 x 6.3 cm previously in this location. IMPRESSION: Marked decrease in size of the subcapsular hematoma since the previous examination although it should be noted that views of the spleen and abdomen are limited and incomplete. Addendum Dictated By: ??JAVIER PARKER MD Addendum Esigned by: JAVIER PARKER MD Dictated: 03/23/2302/04/1346 Signed:03/23/23 1356 ORIGINAL REPORT History: ??73 year-old 53 pack-year former smoker, asymptomatic, for lung cancer screening. Chronic obstructive pulmonary disease, emphysema, coronary artery disease, quit smoking 4 years ago Comparison: 02/07/2022 and 10/22/2019 Technique: Helical volumetric imaging of the thorax was performed, using low- dose technique, without IV contrast. DLP: 163.14 mGy/cm ??CTDIvol: 4.83 mGy [employer] VCT Iterative reconstruction technique Findings: Chest: There is no evidence for mediastinal or hilar adenopathy. ??There are small calcified bilateral hilar lymph nodes consistent with old healed infectious granulomatous disease. ??The heart size is normal. ??There is extensive coronary artery calcification. ??There is no pericardial or pleural effusion. There is chronic obstructive pulmonary disease with emphysematous changes. There is a minimal patchy infiltrate in the right upper lobe anteriorly near the apex which is a new finding since the previous examination. ??There is also patchy infiltrate in the left lower lobe posteromedially which is new. ??Patchy parenchymal abnormalities in the right lower lobe medially have been present previously but appear more prominent. ??Findings are suggestive of an inflammatory process. ??Perivascular nodular density right lower lobe measuring 3 mm in diameter image 29 series 3 unchanged or less prominent than on the prior. There is no new nodule or mass. Abdomen: This study was performed without contrast and with lower than standard dose. These factors reduce the sensitivity for detection of small lesions in the upper abdomen. Views of the upper abdomen are limited. ??Again noted is splenomegaly. ??A suspicion of the lentiform focus of low attenuation in the periphery of the spleen which is incompletely imaged raising the possibility of a subcapsular fluid collection. ??This is a new finding. Impression: 1. ??Chronic obstructive pulmonary disease with emphysematous changes. ??There are patchy infiltrates in the right upper lobe, and left lower lobe which are new and a patchy infiltrate in the right lower lobe which has probably progressed. ??Findings are suggestive of an inflammatory process. ??Recommend short-term interval follow-up examination reassess. ??Small nodule right lower lobe is unchanged or decreased in size since the prior. 2. ??Splenomegaly with a question of a subcapsular fluid collection which is new. ??Further evaluation with sonography or contrast-enhanced CT scan of the abdomen is recommended to further assess. Lung RADS 0: ??Incomplete. ??Findings suggestive of an inflammatory or infectious process. [id number] [id number] [id number] Dictating Physician: ??JAVIER PARKER MD Electronically Signed by: ??JAVIER PARKER MD Dic Date/Time: ??03/21/23 175 Sign date/Time: ??03/21/23 181 Procedure Note Javier Parker MD - 06/20/2023 [facility] Diagnostic Imaging Department [address] [place] [address] Patient: NACHO DAVID D.O.B./Age/Sex: 1950 - 73 - F Unit#: [id number] Location/Status: SPDICATLS/REG CLI Mnemonic/Ordering Site: [facility] [place] Ordering Physician: SUKHJINDER OSHEA MD CT Lung Screening Low Dose - 11/02/23 - Report Status:Signed ADDENDUM Addendum: I was asked to review the patient is on CT lung screen with regards tothe subcapsular splenic hematoma. COMPARISON: Outside [facility] Current examination is extremely limited with incomplete visualization ofthe spleen. However regardless of the limited views there has been markeddecrease in size of the subcapsular fluid collection. At the level ofapproximately the mid spleen the collection currently measures 7.6 cm in AP diameter by 1.3cm transversely compared with 16.7 x 6.3 cm previously in this location. IMPRESSION: Marked decrease in size of the subcapsular hematoma sincethe previous examination although it should be noted that views of the spleenand abdomen are limited and incomplete. Addendum Dictated By: JAVIER PARKER MD Addendum Esigned by: JAVIER PARKER MD Dictated: 03/23/2302/04/1346 Signed:03/23/23 1356 ORIGINAL REPORT History: 73 year-old 53 pack-year former smoker, asymptomatic, for lungcancer screening. Chronic obstructive pulmonary disease, emphysema, coronaryartery disease, quit smoking 4 years ago Comparison: 02/07/2022 and 10/22/2019 Technique: Helical volumetric imaging of the thorax was performed, usinglow- dose technique, without IV contrast. DLP: 163.14 mGy/cm CTDIvol: 4.83 mGy [employer] [employer] VCT Iterative reconstruction technique Findings: Chest: There is no evidence for mediastinal or hilar adenopathy. Thereare small calcified bilateral hilar lymph nodes consistent with old healed infectious granulomatous disease. The heart size is normal. There isextensive coronary artery calcification. There is no pericardial or pleuraleffusion. There is chronic obstructive pulmonary disease with emphysematouschanges. There is a minimal patchy infiltrate in the right upper lobe anteriorlynear the apex which is a new finding since the previous examination. There isalso patchy infiltrate in the left lower lobe posteromedially which is new.Patchy parenchymal abnormalities in the right lower lobe medially have beenpresent previously but appear more prominent. Findings are suggestive of an inflammatory process. Perivascular nodular density right lower lobemeasuring 3 mm in diameter image 29 series 3 unchanged or less prominent than on theprior. There is no new nodule or mass. Abdomen: This study was performed without contrast and with lower thanstandard dose. These factors reduce the sensitivity for detection of small lesionsin the upper abdomen. Views of the upper abdomen are limited. Again noted is splenomegaly. A suspicion of the lentiform focus of low attenuation inthe periphery of the spleen which is incompletely imaged raising thepossibility of a subcapsular fluid collection. This is a new finding. Impression: 1. Chronic obstructive pulmonary disease with emphysematous changes.There are patchy infiltrates in the right upper lobe, and left lower lobe whichare new and a patchy infiltrate in the right lower lobe which has probably progressed. Findings are suggestive of an inflammatory process.Recommend short-term interval follow-up examination reassess. Small nodule rightlower lobe is unchanged or decreased in size since the prior. 2. Splenomegaly with a question of a subcapsular fluid collection whichis new. Further evaluation with sonography or contrast-enhanced CT scan ofthe abdomen is recommended to further assess. Lung RADS 0: Incomplete. Findings suggestive of an inflammatory orinfectious process. [id number] [id number] [id number] Dictating Physician: JAVIER PARKER MD Electronically Signed by: JAVIER PARKER MD Dic Date/Time: 03/21/23 1759 Sign date/Time: 03/21/23 1812 Sukhjinder Oshea MD IMG CT PROCEDURES Final Result * DXA BONE DENSITY STUDY 1+ SITS AXIAL SKEL (09/19/2022 2:58 PM EDT) Anatomical Region Laterality Modality Bone Densitometr y 08/08/2022 1:46 PM EDT Narrative 09/19/2022 4:40 PM EDT BONE DENSITY (DEXA) ? Lumbar Spine T-score is -2.7. ?? (SD relative to 20-29 y/o adult) Z-score is -0.5. ??(SD relative to age matched peers) This is considered osteoporosis by WHO criteria. Left Hip T-score is -2.3. Z-score is -0.4. This is considered osteopenia by WHO criteria. Lateral view the spine demonstrates vertebral heights to be maintained. ??There is grade 1 spondylolisthesis at L4-5. IMPRESSION: This patient is considered to have osteoporosis by WHO criteria. The [facility] Department of Internal Medicine recommends using National Osteoporosis Foundation (NOF) guidelines in treatment decisions related to osteoporosis. NOF guidelines suggest considering treatment for postmenopausal women and men aged 50 or older presenting with the following: History of hip or vertebral fracture. T-score = -2.5 (DXA) at the femoral neck, total hip, or spine, after appropriate evaluation to exclude secondary causes. Low bone mass (T-score between -1.0 and -2.5 at the femoral neck or spine) AND a 10-year probability of a hip fracture = 3% OR a 10-year probability of a major osteoporosis-related fracture = 20% based on the [place]-adapted WHO algorithm Please note that all treatment decisions require clinical judgment and consideration of individual patient factors, including patient preferences, co-morbidities, previous drug use, risk factors not captured in the FRAX model (e.g., frailty, falls, vitamin D deficiency, increased bone turnover, interval significant decline in bone density) and possible under- or over-estimation of fracture risk by FRAX. Optional alternative screening schedule based on jose Anguiano., [facility] June 02, 2011 for patients with osteopenia (based on hip BMD T-score) is as follows: * ??advanced osteopenia (T scores -2.00 to -2.49), BMD testing every year * ??moderate osteopenia (T scores -1.50 to -1.99), BMD testing every 5 years mild osteopenia or normal BMD (T scores -1.50 and higher), BMD testing every 15 years Procedure Note Nacho Lowe MD - 06/19/2023 BONE DENSITY (DEXA) Lumbar Spine T-score is -2.7. (SD relative to 20-29 y/o adult) Z-score is -0.5. (SD relative to age matched peers) This is considered osteoporosis by WHO criteria. Left Hip T-score is -2.3. Z-score is -0.4. This is considered osteopenia by WHO criteria. Lateral view the spine demonstrates vertebral heights to be maintained.There is grade 1 spondylolisthesis at L4-5. IMPRESSION: This patient is considered to have osteoporosis by WHO criteria. The [facility] Department of Internal Medicine recommendsusing National Osteoporosis Foundation (NOF) guidelines in treatment decisions related toosteoporosis. NOF guidelines suggest considering treatment for postmenopausal women and menaged 50 or older presenting with the following: History of hip or vertebral fracture. T-score = -2.5 (DXA) at the femoral neck, total hip, or spine, afterappropriate evaluation to exclude secondary causes. Low bone mass (T-score between -1.0 and -2.5 at the femoral neck or spine)AND a 10-year probability of a hip fracture = 3% OR a 10-year probability of a majorosteoporosis-related fracture = 20% based on the [place]-adapted WHO algorithm Please note that all treatment decisions require clinical judgment andconsideration of individual patient factors, including patient preferences, co- morbidities,previous drug use, risk factors not captured in the FRAX model (e.g., frailty, falls, vitaminD deficiency, increased bone turnover, interval significant decline in bone density) andpossible under- or over-estimation of fracture risk by FRAX. Optional alternative screening schedule based on dominique Anguiano al., NEJMJanuary 2011 for patients with osteopenia (based on hip BMD T-score) is as follows: * advanced osteopenia (T scores -2.00 to -2.49), BMD testing every year * moderate osteopenia (T scores -1.50 to -1.99), BMD testing every 5years mild osteopenia or normal BMD (T scores -1.50 and higher), BMD testingevery 15 years Maya Wiggins MD [facility] DXA PROCEDURES Final Result * (ABNORMAL) Lipid panel (01/05/2022) LDL/HDL Ratio 4 0 - 4 Triglycerides 175(A) 0 - 150 mg/dL Cholesterol 250(A) 0 - 200 mg/dL HDL 58 >=40 mg/dL LDL Cholesterol 157(A) 0 - 100 mg/dL Blood Venous blood specimen / Unknown Historical Provider LAB BLOOD ORDERABLES Shi l Result * Hepatitis C Screening (02/13/2013) Hepatitis C Screening Abstracted Historical Provider HEALTH MAINTENANCE Final Result from Last 3 Months or Most Recently Relevant to Health [place] [id number] [employer] Care Teams Control Room Technician Relationship Specialty Start Date End Date Maya Wiggins MD [address] [place] [address] [facility] [place] [address] PCP - General Internal Medicine 05/22/24
--- OUTSIDE RECORDS SUMMARY | 2024-08-01 11:54 | XMS_ITS | Encounter Summary ---
Author Organization [facility] Address [address] [place] [address] Care Team Providers Care Improvement Lead Name Role Phone Maya Wiggins MD Primary Care Provider [phone] Reason for Visit * Reason Comments Medication Visit Encounter Details Date Type Department Care Team (Late st Contact Info) Description 07/03/2024 2:30 PM EST Office Visit Adult Medicine [address] [phone] Maya Wiggins MD [address] [place] [phone] Fibromyalgia (Primary Dx); Spinal stenosis of lumbar region with neurogenic claudication Social History Tobacco Use Types Packs/Day Years Used Date Smoking Tobacco: Former Cigarettes Q uit: 05/28/2015 Smokeless Tobacco: Never Alcohol Use Standard Drinks/Week Comments Not Currently 0 (1 standard drink = 0.6 oz pur e alcohol) Comments No Sex and Gender Information Value Date Recorded Sex Assigned at Not on file Legal Sex Female 3:59 PM EST Gender Identity Not on file Sexual Orientation Not on file documented as of this encounter Last Filed Vital Signs Vital Sign Reading Time Taken Comments Blood Pressure 128/74 07/03/2024 2:33 PM EST Pulse 82 07/03/2024 2:33 PM EST Temperature 36.6 ??C (97.8 ??F) 07/03/2024 2:33 PM ES T Respiratory Rate 14 07/03/2024 2:33 PM EST Oxygen Saturation - - Inhaled Oxygen Concentration - - Weight 83.9 kg (185 lb) 07/03/2024 2:33 PM EST Height 165.1 cm (5' 5 ) 07/03/2024 2:33 PM EST Body Mass Index 30.79 07/03/2024 2:33 PM EST documented in this encounter Progress Notes * Maya Wiggins MD - 07/03/2024 2:30 PM EST Images from the original note were not included. CHIEF COMPLAINT: Medication Visit IDENTIFIER: Haydee David is a 74 y.o. old female. HPI: Patient is a 74-year-old female with history of chronic lower back pain secondary to lumbosacral radiculopathy(MRI lower back from 2020 L3-L4 diffuse annular bulge, bilateral facet arthrosis, L4-L5 disc dissection, broad-based posterior annular bulge, bilateral facet arthrosis, left neuroforaminal n arrowing, L5-S1 broad-based annular bulge, facet arthrosis, ligamentous laxity and prominent epidural fat causing severe central canal stenosis), depression/anxiety who is here for follow-up. Patient did have a visit with orthospine on 06/05/2024, per note they wanted to obtain notes from physiatry regarding if patient has had injections at L5-S1, if patient had injections at L5-S1 which did not provide her relief they did not think she is a good surgical candidate. If she has not had injections at that level they would refer her for an epidural steroid injection. Polyarthralgia/polymyalgia-per last note further testing was ordered for the patient and they discussed the possibility of starting hydroxychloroquine patient wanted to hold off and was advised follow-up in 3 months for lab follow- up, this visit was June 2023. At her last visit with medicine she requested a new referral to rheumatology and this was placed. Patient currently taking percocet 1 tab daily and gabapentin 200mg three times a day. ROS: Review of systems: Pertinent items are noted in HPI PAST MEDICAL HISTORY: Patient Active Problem List Diagnosis Date Noted Age-related osteoporosis without current pathological fracture 03/20/2024 Dysphagia 02/12/2024 Vomiting 02/12/2024 Esophageal stenosis 02/12/2024 Spinal stenosis of lumbar region with neurogenic claudication 09/23/2022 Epidural lipomatosis 09/23/2022 Acute pain of left shoulder 09/23/2022 CASSY (stress urinary incontinence, female) 04/11/2022 Pulmonary nodules 02/08/2022 Esophageal stricture 04/26/2021 Pill dysphagia 12/24/2020 Radiculopathy of lumbosacral region 10/16/2020 Bilateral low back pain 09/29/2020 Subclinical hypothyroidism 06/05/2020 Obese 12/13/2018 Presacral mass 06/21/[address] scan, pelvis 04/30/2018 SCOTT (dyspnea on exertion) 08/04/2017 Obstructive sleep apnea 07/12/2017 Fibromyalgia 03/20/2015 Generalized anxiety disorder 04/08/2013 Multiple thyroid nodules 04/25/2012 Knee meniscus pain 04/01/2011 Pure hypercholesterolemia 01/12/2010 Depression 04/23/2009 Idiopathic osteoporosis 02/02/2006 SOCIAL HISTORY: Social History Tobacco Use Smoking status: Former Current packs/day: 0.00 Types: Cigarettes Quit date: 05/28/2015 Years since quittin.1 Smokeless tobacco: Never Substance Use Topics Alcohol use: Not Currently FAMILY HISTORY: Family Status Relation Name Status Mother Alive Father Sister (Not Specified) MGM (Not Specified) Brother (Not Specified) Neg Hx (Not Specified) Sister Sister Alive Sister Alive Brother Brother Alive No partnership data on file Family History Problem Relation Name Age of Onset Arthritis Mother Heart attack Father in his 70s Arthritis Sister Stroke Maternal Grandmother Other cancer Brother testicular Colon cancer Neg Hx Ovarian cancer Neg Hx ACTIVE MEDICATIONS: Outpatient Medications Marked as Taking for the 07/03/24 encounter (Office Visit) with Maya Wiggins MD Medication Sig Dispense Refill albuterol HFA (PROAIR HFA ; PROVENTIL HFA ; VENTOLIN HFA) 90 mcg/actuation inhaler Inhale 2 puffs by mouth every 6 (six) hours if needed for wheezing. Inhale 2 Puffs into the lungs 4 times daily as needed for Cough, Wheezing or Shortness of Breath. 6.7 g 0 CALCIUM-VITAMIN D3-MAGNESIUM ORAL Take by mouth. TKHCDZS-YCSZNOXLE-CIEFLEM D 500-250-125 FZ-CO-VTZROC TABS diclofenac (VOLTAREN) 1 % topical gel Apply 2 g topically 2 times daily as needed (Pain). gabapentin (NEURONTIN) 100 mg capsule Take 2 capsules (200 mg total) by mouth 3 (three) times a day. 180 capsule 5 ibuprofen (ADVIL,MOTRIN) 600 mg tablet Take 1 tablet (600 mg total) by mouth every 6 (six) hours ifneeded for mild pain or moderate pain. Take 1 Tablet by mouth every 6 hours as needed for Pain. 90 tablet 0 levothyroxine (SYNTHROID, LEVOTHROID) 25 mcg tablet Take 1 tablet (25 mcg total) by mouth 1 (one) time each day. LORazepam (ATIVAN) 0.5 mg tablet Take 1 tablet (0.5 mg total) by mouth 2 (two) times a day. Max Daily Amount: 1 mg 56 tablet 0 oxyCODONE-acetaminophen (PERCOCET) 5-325 mg per tablet Take 1 tablet by mouth 1 (one) time each dayif needed for severe pain. Max Daily Amount: 1 tablet 28 tablet 0 sertraline (ZOLOFT) 100 mg tablet Take 2 tablets (200 mg total) by mouth 1 (one) time each day. ALLERGIES: Amoxicillin-pot clavulanate, Duloxetine, Escitalopram, Fluoxetine, Risedronate sodium, and Venlafaxine PHYSICAL EXAM: Blood pressure 128/74, pulse 82, temperature 36.6 ??C (97.8 ??F), temperature source Temporal, resp. rate 14, height 1.651 m (65 ), weight 83.9 kg (185 lb). Body mass index is 30.79 kg/m??. Plan is deferred until next visit APPEARANCE: Alert and in no acute distress EYES: PERRLA, conjunctiva and sclera normal HEART: RRR with normal S1 and S2, no murmurs, no gallops, no JVD appreciated LUNG: clear to auscultation bilaterally EXTREMITIES: Extremities warm and well perfused without clubbing, cyanosis, or edema NEURO: Awake, alert and oriented x 3 and Normal gait LABS: IMPRESSION: 1. Fibromyalgia 2. Spinal stenosis of lumbar region with neurogenic claudication ASSESSMENT/PLAN: Haydee was seen today for medication visit. Diagnoses and all orders for this visit: Fibromyalgia (Primary) Spinal stenosis of lumbar region with neurogenic claudication Plan Patient is a 74-year-old female with history of chronic lower back pain secondary to lumbosacral radiculopathy(MRI lower back from 2020 L3-L4 diffuse annular bulge, bilateral facet arthrosis, L4-L5 disc dissection, broad-based posterior annular bulge, bilateral facet arthrosis, left neuroforaminal n arrowing, L5-S1 broad-based annular bulge, facet arthrosis, ligamentous laxity and prominent epidural fat causing severe central canal stenosis), depression/anxiety who is here for follow-up. Patient did have a visit with orthospine on 06/05/2024, per note they wanted to obtain notes from physiatry regarding if patient has had injections at L5-S1, if patient had injections at L5-S1 which did not provide her relief they did not think she is a good surgical candidate. If she has not had injections at that level they would refer her for an epidural steroid injection. Polyarthralgia/polymyalgia-per last note further testing was ordered for the patient and they discussed the possibility of starting hydroxychloroquine patient wanted to hold off and was advised follow-up in 3 months for lab follow- up, this visit was June 2023. At her last visit with medicine she requested a new referral to rheumatology and this was placed. Patient currently taking percocet 1 tab daily and gabapentin 200mg three times a day. Patient reports that she continues to have pain everyday involving multiple joints- sometimes wrist, sometimes shoulders, back pain, she denies any alarm symptoms like saddle anesthesia, sensory or motor disturbance , bowel/bladder incontinence, fever. She has had some improvement in symptoms after starting gabapentin, she is also taking percocet once a day which does help but relief does not last all day long, increase dose to 1 tab twice a day as needed. Patient will c/w gabapentin 200 mg three times a day. New CSC was completed at today's visit. Follow up in about 3 months (around 09/30/2024) for Medication review. No orders of the defined types were placed in this encounter. No results found for this or any previous visit (from the past 4 weeks). Maya Wiggins MD on 07/03/2024 at 7:37 PM EST documented in this encounter Plan of Treatment Upcoming Encounters Date Type Department Care Team (Late st Contact Info) Description 08/30/2024 2:30 PM EDT Office Visit [address] [place], [place] [phone] Maya Wiggins MD [address] [place] [address] 09/04/2024 1:50 PM EDT Appointment Radiology Department - [address] [phone] documented as of this encounter Visit Diagnoses Diagnosis Fibromyalgia- Primary Unspecified myalgia and myositis Spinal stenosis of lumbar region with neurogenic claudication Encounter for screening mammogram for breast cancer documented in this encounter Care Teams Improvement Lead Relationship Specialty Start Date End Date Maya Wiggins MD [address] [place] [address] PCP - General Internal Medicine 05/22/24 documented as of this encounter
--- OUTSIDE RECORDS SUMMARY | 2024-08-01 11:54 | XMS_ITS | Patient Health Record ---
[facility] Harjit luda Zarate Address [address] [place] [address] Care Team Providers Care Pulmonary Care Nurse Name Role Phone Shu DE LA CRUZ, Cynthia Lemus Primary Care Provider Susy Goins Unavailable [phone] Allergies No Known Allergies Reason For Referral No Information Medications Medication SIG (Take, Route, Frequency, Duration) Notes Start Date End Date Status LORazepam 1 MG 1 tablet at bedtime as needed Orally Once a day Active oxyCODONE-Acetaminophen 5-325 MG 1 tablet as needed Orally every 6 hrs Active Calcium + D Active Levothyroxine Sodium 100 MCG 1 tablet in the morning on an empty stomach Orally Once a day for 30 day(s) Active Sertraline HCl 100 MG 1 tablet Orally On ce a day for 30 day(s) Active Immunizations Vaccine Route Administration Date Status Comme nts COVID-19 Pfizer BioNTech Vaccine Unknown 08/23/2020 Administered First Dose: Social History Tobacco Use: Social History Observation Description Date Details (start date - stop date) Former Smoker NA - NA Tobacco Use/Smoking Question Answer Notes Are you a: former smoker Additional Findings: Tobacco Non-User Current no n-smoker Alcohol Screen Question Answer Notes Did you have a drink containing alcohol in the p ast year? No Points 0 Interpretation Negative Tobacco use other than smoking: Question Answer Notes Are you an other tobacco user? No Problems Problem Type SNOMED Code ICD Code Onset Dates Problem Status W/U Status Risk Notes Problem [id number] Hallux valgus (acquired), left foot (M20.12) Active confirmed Problem [id number] Hallux valgus (acquired), right foot (M20.11) Active confirmed Problem [id number] Neuropathy (G62.9) Active confirmed Plan Of Treatment No Information Insurance Providers Payer Name Payer Address Payer Phone Subscriber Number Group Number Insured Name Patient Relationship to Insured Coverage Start Date Coverage End Date [employer] [place] [employer] [address] [facility] [place] [address] [phone] [id number] Haydee David Self - patient is the insured Medical (General) History Medical History History ICD Code Anxiety Arthritis Back,Hip,and Knee pain Broken bones Depression Fibromyalgia Headaches/Migraines Keloid/Thick Scar Measles Joint implants/screws Numbness Osteoporosis Reflux ( GERD) Sciatica thyroid Surgical History Surgery Date(Month/Year) Hand Surgery hernia knee surgery mastectomy 11/2014 hernia surgery-mass- no findings 11/2020
== END 2024-08-01 11:40 | disposition home or self-care (01) ==
LOC: HO.HNS 10:24
PROVIDERS: PCP Internal Medicine; Visit Provider Physician Assistant
DX: M54.50 Low back pain, unspecified (principal)
CPT/HCPCS: 99213

== ENCOUNTER → 2024-08-01 10:24 | Outpatient (BNVA) | payer MEDICARE, SELFPAY | PROVIDERS: PCP Internal Medicine; Visit Provider Physician Assistant | DX: M54.50 Low back pain, unspecified (principal) | CPT/HCPCS: 99212 ==

== ENCOUNTER → 2024-08-14 13:49 | Outpatient (BNV) | payer MEDICARE, SELFPAY | PROVIDERS: Admitting Provider Neurological Surgery; PCP Internal Medicine; Visit Provider Internal Medicine | DX: F41.1 Generalized anxiety disorder (principal); Z01.810 Encounter for preprocedural cardiovascular examination | CPT/HCPCS: 93010 ==

== ENCOUNTER 2024-09-10 07:56 | Day surgery (SDC) | payer MEDICARE, SELFPAY ==
--- NOTE | 2024-08-14 | ECG_ITS ---
Test Reason : preop Blood Pressure : */* mmHG Vent. Rate : 93 BPM Atrial Rate : 93 BPM P-R Int : 166 ms QRS Dur : 74 ms QT Int : 352 ms P-R-T Axes : 52 3 70 degrees QTcB Int : 437 ms Normal sinus rhythm Low voltage QRS Borderline ECG When compared with ECG of 06-Jun-2015 17:55, No significant change was found Referred By: Qian Carnes Electronically Signed By: HUSAM MAYS
[2024-08-14 13:08] VITALS: BP 137/69; PULSE 100; RESP 16; O2SAT 96; BMI 33.4
[2024-08-14 14:10] LABS: Mean Corpuscular HGB Conc 36.1 g/dl (31.0-35.0); Mean Corpuscular Hemoglobin 31.3 pg (27.0-33.0); Mean Corpuscular Volume 86.7 fL (80.0-98.0); Platelet Count 102 X10*3/uL (160-400); Red Blood Count 4.15 X10*6/uL (4.20-5.50); Red Cell Distribution Width 14.6 % (11.0-16.0); White Blood Count 7.7 X10*3/uL (4.8-10.8)
[2024-08-14 14:46] LABS: Anion Gap 10 (12-20); Blood Urea Nitrogen 18 mg/dL (9-16); Calcium 9.6 mg/dL (8.4-10.2); Carbon Dioxide 27 mmol/L (22-29); Chloride 108 mmol/L (96-108); Creatinine Clr Calc Pharmacy 61.8; Estimated Glomerular Filt Rate > 60; Glucose Random 97 mg/dL (60-115); Potassium 4.2 mmol/L (3.3-5.1); Sodium 141 mmol/L (135-145)
[2024-09-10] VITALS (16 sets, daily range): BP systolic 97–130; BP diastolic 40–64; PULSE 80–93; RESP 10–18; TEMP 36.2–37.2; O2SAT 94–100; BMI 33.2
--- NOTE | ~2024-09-10 | FL_ITS ---
EXAMINATION: FL GUIDANCE ONLY HISTORY: L5-S1 TLIF COMPARISON: None available. TECHNIQUE: Fluoroscopy time: 1 minute, 18.5 seconds. Cumulative Dose: 102.454 mGy. DAP: 27.232 mGym2 Images: 5. FINDINGS: Images demonstrate posterior fusion of L5 and S1 with pedicle screws, spinal stabilization rods, and an intervertebral spacer. FL/FL guidance in OR IMPRESSION: Fluoroscopy during procedure. Please see procedure report for additional information. Electronically signed by: Tomi Granados MD 09/11/2024 03:48 PM EDT
--- NOTE | 2024-09-10 08:20 | PC.NURSE ---
PATIENT UNSURE OF ALLERGIES. RECEIVED ALLERGIES FROM ANOTHER MD OFFICE NOTE.
[2024-09-10] MEDS: methocarbamoL 750 MG TABLET PO (08:42)
[2024-09-10] MEDS: Gabapentin 300 MG CAPSULE PO (08:42)
[2024-09-10] MEDS: Lactated Ringers 1,000 ML 100 ML IVCONT (08:45)
--- NOTE | 2024-09-10 09:45 | MHC.SHP ---
Pre-Procedural Eval Section A - 24 Hr Update-Section A only Date of Service: 09/10/24 The patient is an INPATIENT: No Changes since office visit: No Cold of Flu in the past 2 weeks, No New Medical Problems, No Changes in Medication and No Patient answered all questions The patient has been examined within 24 hours of the surgical procedure. The History & Physical has been completed within 30 days and I have reviewed it.: No Section B - Complete if H&P > 30 days Chief Complaint: Spinal stenosis, ltikhvwc-usihgoy-lnvco region,olean Allergies: Allergies Allergy/AdvReac Type Severity Reaction Status Date / Time amoxicillin [From Augmentin] Allergy Hives Verified 09/10/24 08:15 clavulanic acid Allergy Hives Verified 09/10/24 08:15 [From Augmentin] duloxetine Allergy Hives Verified 09/10/24 08:15 escitalopram Allergy Unknown Verified 09/10/24 08:15 fluoxetine Allergy Unknown Verified 09/10/24 08:15 risedronate sodium Allergy Unknown Verified 09/10/24 08:15 venlafaxine Allergy Unknown Verified 09/10/24 08:15 Review of Systems Sugical H&P ROS: Negative: Constitution, Cardiovascular, Respiratory, Neurological, Psychiatric, Hem-Onc, Allergic/Immunologic, Gastrointestinal, Genitourinary, Musculoskeletal, Integumentary, Endocrine and Eyes/Ears/Nose/Throat Exam Surgical H&P Exam: Normal: HEENT, Normal: Heart, Normal: Lungs, Normal: Extremities, Normal: Abdomen, Normal: Skin and Normal: Neurological (awake, alert,oriented x 3 ) Plan Diagnosis/Plan: Unchanged L5-S1 transoforaminal lumbar interbody fusion Time Spent With Patient Time: Total time managing care of this patient today __5__ minutes.
--- NOTE | 2024-09-10 10:00 | HO.ANESPROP2 ---
Documented by User: Qian Carnes NP 09/04/24 13:59 HPI - Anesthesia Eval Consult details Narrative: 74yo F for L5-S1 Transforaminal Lumbar Interbody Fuse, 09/10/24 No recent illness No CP/SOB with minimal activity. Generalized polyathralgia - per PCP note, pending rheum referral, pt declines plaquenil. Encouraged pt to discuss symptoms with Dr Chen prior to surgery. Albuterol less than weekly DARCY: Unable to tolerate CPAP. Has required post-op PAP with previous surgeries. PMFSH Active Problems Active Problems: All Active Problems Lumbago (Acute) Cellulitis of finger of left hand (Acute) Past Medical History Medical History (Updated 08/13/24 @ 16:01 by Heike Sutton RN) Back pain YOLANDA (generalized anxiety disorder) Esophageal stenosis Fibromyalgia Osteoporosis Hypercholesterolemia Multiple thyroid nodules SCOTT (dyspnea on exertion) DARCY (obstructive sleep apnea) Pulmonary nodules Dysphagia Lumbosacral radiculopathy Low back pain Arthritis Osteoporosis Depression Anxiety Family History Family history of problems with anesthesia: No Surgical History Surgical History (Updated 08/14/24 @ 13:04 by Heike Sutton RN) Hx of breast reduction, elective Hx of arthroscopic knee surgery Hx of rotator cuff surgery Hx of colonoscopy History of Problems with Anesthesia: No Social History Social History (Updated 08/14/24 @ 13:25 by Heike Sutton, V[place]) Housing Other:: mobile home Are you a primary acute care nursing assistant to a significant other at home: No Do you presently have visiting nurse or other home services: No Alcohol intake: never Comment: aware of trip hazard Patient Tobacco Use Status: Former Tobacco user Tobacco use type: Cigarette Use of substances other than those prescribed or required for medical reasons: No Have you been hit, kicked, punched, or otherwise hurt by someone within the past year? If so, by whom?: No Are you DNR?: No Advance Directives: No Advance Directives Information Provided: Yes Advance Directives on File: No Meds Allergies Allergy/AdvReac Type Severity Reaction Status Date / Time amoxicillin [From Augmentin] Allergy Hives Verified 09/10/24 08:15 clavulanic acid Allergy Hives Verified 09/10/24 08:15 [From Augmentin] duloxetine Allergy Hives Verified 09/10/24 08:15 escitalopram Allergy Unknown Verified 09/10/24 08:15 fluoxetine Allergy Unknown Verified 09/10/24 08:15 risedronate sodium Allergy Unknown Verified 09/10/24 08:15 venlafaxine Allergy Unknown Verified 09/10/24 08:15 Home Medications ?Medication ?Instructions ?Recorded ?Confirmed ?Last Taken ?Type sertraline 100 mg tablet 2 tab PO DAILY 04/07/20 08/13/24 Unknown History albuterol sulfate 90 mcg/actuation 2 puff inhalation Q6H PRN 07/29/21 08/13/24 09/10/24 History aerosol inhaler Shortness Of Breath Or Wheezing calcium 600 mg (as carbonate)-vit 1 tab PO DAILY 07/29/21 08/13/24 Unknown History D3 10 mcg (400 unit) chewable tablet (Calcium 600 with Vitamin D3) levothyroxine 25 mcg tablet 25 mcg PO 6XW 07/29/21 08/13/24 09/10/24 History gabapentin 100 mg capsule 200 mg PO TID 08/13/24 08/13/24 Unknown History ibuprofen 600 mg tablet 600 mg PO DAILY PRN Pain 08/13/24 08/13/24 Unknown History lorazepam 0.5 mg tablet 0.5 mg PO BID 08/13/24 08/13/24 Unknown History oxycodone-acetaminophen 5 mg-325 1 tab PO BID PRN Pain 08/13/24 08/13/24 Unknown History mg tablet Exam Height,Weight and Vital Signs: Height 5 ft 3 in Weight 85.6 kg Last Vital Signs Pulse 100 08/14/24 13:08 Resp 16 08/14/24 13:08 BP 137/69 08/14/24 13:08 Pulse Ox 96 08/14/24 13:08 O2 Del Method Room Air 08/14/24 13:08 Pertinent Lab Results Pertinent Lab Results: Lab Results 08/14/24 Range/Units 13:50 WBC 7.7 (4.8-10.8) X10*3/uL RBC 4.15 L (4.20-5.50) X10*6/uL Hgb 13.0 (12.0-16.0) g/dl Hct 36.0 L (37.0-47.0) % MCV 86.7 (80.0-98.0) fL MCH 31.3 (27.0-33.0) pg MCHC 36.1 H (31.0-35.0) g/dl RDW 14.6 (11.0-16.0) % Plt Count 102 L (160-400) X10*3/uL MPV 8.0 L (9.4-12.3) fL Absolute Nucleated RBC 0.000 (0.0-0.012) X10*3/uL Nucleated RBC % (auto) 0.0 (0.0-0.2) /100WBC Sodium 141 (135-145) mmol/L Potassium 4.2 (3.3-5.1) mmol/L Chloride 108 (96-108) mmol/L Carbon Dioxide 27 (22-29) mmol/L Anion Gap 10 L (12-20) BUN 18 H (9-16) mg/dL Creatinine 0.84 (0.5-1.4) mg/dL Estim Creat Clear Calc 61.8 Estimated GFR > 60 Random Glucose 97 (60-115) mg/dL Calcium 9.6 (8.4-10.2) mg/dL Blood Type A Positive Antibody Screen NEGATIVE Narrative Narrative: EKG 08/27/24 Vent. Rate : 93 BPM Atrial Rate : 93 BPM P-R Int : 166 ms QRS Dur : 74 ms QT Int : 352 ms P-R-T Axes : 52 3 70 degrees QTcB Int : 437 ms Normal sinus rhythm Low voltage QRS Borderline ECG When compared with ECG of 06-Jun-2015 17:55, No significant change was found Airway Mallampati Class: I TM Dist: >3cm Neck ROM: Limited (d/t OA) Partial: Upper Loose/Missing/Broken Teeth: Yes (missing lower) Heart: RRR Lungs: CTAB Assessment and Plan Assessment Anesthesia Assessment: Anesthesia Plan Discussed and PAT Visit Final Anesthetic Review Family History of Problems with Anesthesia: No History of Problems with Anesthesia: No Documented by User: Paradise Kumar DO 09/10/24 10:04 [facility] Past Medical History Medical History (Updated 08/13/24 @ 16:01 by Heike Sutton RN) Back pain YOLANDA (generalized anxiety disorder) Esophageal stenosis Fibromyalgia Osteoporosis Hypercholesterolemia Multiple thyroid nodules SCOTT (dyspnea on exertion) DARCY (obstructive sleep apnea) Pulmonary nodules Dysphagia Lumbosacral radiculopathy Low back pain Arthritis Osteoporosis Depression Anxiety Family History Family history of problems with anesthesia: No Surgical History Surgical History (Updated 08/14/24 @ 13:04 by Heike Sutton RN) Hx of breast reduction, elective Hx of arthroscopic knee surgery Hx of rotator cuff surgery Hx of colonoscopy History of Problems with Anesthesia: No Social History Social History (Updated 08/14/24 @ 13:25 by Heike Sutton RN) Housing Other:: mobile home Are you a primary acute care nursing assistant to a significant other at home: No Do you presently have visiting nurse or other home services: No Alcohol intake: never Comment: aware of trip hazard Patient Tobacco Use Status: Former Tobacco user Tobacco use type: Cigarette Use of substances other than those prescribed or required for medical reasons: No Have you been hit, kicked, punched, or otherwise hurt by someone within the past year? If so, by whom?: No Are you DNR?: No Advance Directives: No Advance Directives Information Provided: Yes Advance Directives on File: No Meds Allergies Allergy/AdvReac Type Severity Reaction Status Date / Time amoxicillin [From Augmentin] Allergy Hives Verified 09/10/24 08:15 clavulanic acid Allergy Hives Verified 09/10/24 08:15 [From Augmentin] duloxetine Allergy Hives Verified 09/10/24 08:15 escitalopram Allergy Unknown Verified 09/10/24 08:15 fluoxetine Allergy Unknown Verified 09/10/24 08:15 risedronate sodium Allergy Unknown Verified 09/10/24 08:15 venlafaxine Allergy Unknown Verified 09/10/24 08:15 Home Medications ?Medication ?Instructions ?Recorded ?Confirmed ?Last Taken ?Type sertraline 100 mg tablet 2 tab PO DAILY 04/07/20 08/13/24 Unknown History albuterol sulfate 90 mcg/actuation 2 puff inhalation Q6H PRN 07/29/21 08/13/24 09/10/24 History aerosol inhaler Shortness Of Breath Or Wheezing calcium 600 mg (as carbonate)-vit 1 tab PO DAILY 07/29/21 08/13/24 Unknown History D3 10 mcg (400 unit) chewable tablet (Calcium 600 with Vitamin D3) levothyroxine 25 mcg tablet 25 mcg PO 6XW 07/29/21 08/13/24 09/10/24 History gabapentin 100 mg capsule 200 mg PO TID 08/13/24 08/13/24 Unknown History ibuprofen 600 mg tablet 600 mg PO DAILY PRN Pain 08/13/24 08/13/24 Unknown History lorazepam 0.5 mg tablet 0.5 mg PO BID 08/13/24 08/13/24 Unknown History oxycodone-acetaminophen 5 mg-325 1 tab PO BID PRN Pain 08/13/24 08/13/24 Unknown History mg tablet Exam Exam Date and Time: 09/10/24 1000 Height,Weight and Vital Signs: Height 5 ft 3 in Weight 85.6 kg Last Vital Signs Pulse 100 08/14/24 13:08 Resp 16 08/14/24 13:08 BP 137/69 08/14/24 13:08 Pulse Ox 96 08/14/24 13:08 O2 Del Method Room Air 08/14/24 13:08 Vital Signs Pulse Rate 100 08/14/24 13:08 Respiratory Rate 16 08/14/24 13:08 Blood Pressure 137/69 08/14/24 13:08 Pulse Oximetry 96 08/14/24 13:08 Oxygen Delivery Method Room Air 08/14/24 13:08 Temperature 97.3 F 09/10/24 08:34 Pulse Rate 93 09/10/24 08:34 Respiratory Rate 16 09/10/24 08:34 Blood Pressure 128/53 L 09/10/24 08:34 Pulse Oximetry 95 09/10/24 08:34 Oxygen Delivery Method Room Air 09/10/24 08:34 Airway Mallampati Class: I TM Dist: >3cm Neck ROM: Limited Partial: Upper Heart: S1S2 Assessment and Plan Assessment Anesthesia Assessment: Anesthesia Plan Discussed and Chart Reviewed Final Anesthetic Review Family History of Problems with Anesthesia: No History of Problems with Anesthesia: No NPO: Yes ASA Class: II Final Preanesthetic Review: No Changes in Pt Med Stat, Meds/Allgs Chart Reviewed, Consent Obtained/Reviewed and Anes Risks/Benef Reviewed Patient Risk: Low Procedure Risk: Intermediate Anesthetic Plan Anesthetic Plan: GA and Agree w/ Assess. and Plan Disposition: Standard PACU
--- NOTE | 2024-09-10 12:13 | P.OP_ITS ---
Operative Note Operative Note Date of Service: 09/10/24 Narrative: Preop diagnosis: Lumbar degenerative disc disease L5-S1; back pain Postop diagnosis: Same Procedure: L5-S1 Complete facetectomy; Diskectomy, arthrodesis and implantation cage; L5-S1 posterior instrumentation; combination of allograft and allograft Consent Informed Consent was obtained for this operation. I have explained the nature, purpose and benefits of the operation. I have discussed the risks and benefit of the operation including possible complications or adverse events with patient/family. Alternative(s) were discussed with the patient with their relative benefits and risks as well as the consequences of not accepting the operation were included in obtaining consent. Surgeon: Kory Chen MD, PhD Assist: sangita Bill Description of Procedure: This patient is suffering from intractable low back pain and bilateral leg pain due to L5-S1 degenerative disc disease. The patient was offered a L5-S1 transforaminal lumbar interbody fusion. The procedure and complication were explained. The patient was consented. The patient was brought to the operating room endotracheally intubated. The patient was turned in a prone position the Jim spine table prepping and draping was done followed by time-out. Two C arms were installed for fluoroscopy. Two paramedian incisions were made in preparation for pedicle screw placement. Following steps were taken for pedicle screw placement: First the pediguard tap was used to create a transpedicular trajectory into the vertebral body. Then a K-wire was advanced into the vertebral body. On the contralateral side, a specially designed instrument was advanced over the K-wire, followed by placement of a pedicle screw in the corresponding pedicle and removal of the K-wire. On the ipsilateral side, the K-wires were bent out of the way after which the transforaminal interbody fusion process was started. The paravertebral muscles were released to expose the L5 lamina and L5-S1 facet joint. A high-speed drill was used to a complete facetectomy. The nerve root was retracted medially after which a thorough L5-S1 diskectomy was done. An 8 mm and 10 mm trial implants were inserted. More disc material was removed. The endplates were prepared. The anterior 1/3 of disc space was filled with a mixture of autograft and allograft followed by placement of a 10 mm by 28 mm and 6 degree lordosis CTL titanium cage filled with autograft and allograft ending in the the paramedian on AP fluoroscopic image. Hemostasis was done. The retractor was removed. Finally, pedicle screws were placed over the K-wires and the K-wires were removed. A total of 4 pedicle screws were placed with a diameter of 6.5 x 40 mm in the bilateral L5 pedicles and right S1 pedicle and 7.5 x 40 in the left S1 pedicles. The pedicle screws were connected with a 45 mm césar and locked down with locking caps. Final x-rays in AP and lateral projection showed good position of the interbody device and posterior instrumentation. Hemostasis was done and the incisions were closed with an 0 Vicryl to fascia and a 3-0 Vicryl for the subdermal layer. All sponge and needle counts were correct. Patient was extubated and transported in a stable condition to recovery room. This procedure was done with assistance of her physician employment assistant who helped an supervisor mirror fabrication in the fluoroscopic imaging, placed pedicle screws and performed hemostasis and closure of the incisions. Anesthesia: General Estimated blood loss: 80 mL Surgical time: 90 minutes Complications: None. Deposition: Admit to inpatient for clinical observation.
[2024-09-10] MEDS: Acetaminophen 1,000 MG/100 ML PIGGYBACK 400 MG IV ×2 (12:30→18:26)
[2024-09-10] MEDS: Ketorolac Tromethamine 15 MG/ML VIAL IVPUSH ×2 (12:30→18:25)
[2024-09-10] MEDS: HYDROmorphone HCl 0.5 MG/0.5 ML SYRINGE IVPUSH ×3 (13:18→13:50)
--- NOTE | 2024-09-10 15:30 | PHA.MEDREC ---
Pharmacy Consult ? Medication Reconciliation Pharmacy has completed the medication reconciliation.
[2024-09-10] MEDS: ceFAZolin Sodium/Dextrose,Iso 2 GM/50 ML PIGGYBACK IV ×2 (15:55→22:09)
[2024-09-10] MEDS: 0.9 % Sodium Chloride 1,000 ML 75 ML IVCONT (15:55)
[2024-09-10] MEDS: Gabapentin 100 MG CAPSULE 200 MG PO ×2 (15:55→20:40)
--- NOTE | 2024-09-10 18:14 | PHA.MEDREC ---
Pharmacy Consult ? Medication Reconciliation Pharmacy has completed the medication reconciliation. Patient was able to confirm her medications. She confirmed her Levothyroxine 25mcg tab once a day. Patient was not sure the last time she took her medications at this time.
[2024-09-10] MEDS: oxyCODONE HCl Immed Release 5 MG TABLET 10 MG PO (19:51)
[2024-09-10] MEDS: Docusate Sodium 100 MG CAPSULE PO (20:40)
[2024-09-10] MEDS: LORazepam 0.5 MG TABLET PO (20:40)
[2024-09-11] MEDS: Acetaminophen 1,000 MG/100 ML PIGGYBACK 400 MG IV ×2 (01:07→06:34)
[2024-09-11] MEDS: Ketorolac Tromethamine 15 MG/ML VIAL IVPUSH ×2 (01:07→06:34)
[2024-09-11] MEDS: oxyCODONE HCl Immed Release 5 MG TABLET 10 MG PO ×3 (01:15→10:35)
[2024-09-11 03:36] VITALS: BP 117/53; PULSE 80; RESP 18; TEMP 36.7; O2SAT 96
[2024-09-11] MEDS: ceFAZolin Sodium/Dextrose,Iso 2 GM/50 ML PIGGYBACK IV (03:43)
[2024-09-11] MEDS: Levothyroxine Sodium 25 MCG TABLET PO (05:42)
[2024-09-11] MEDS: 0.9 % Sodium Chloride 1,000 ML 75 ML IVCONT (05:43)
[2024-09-11] MEDS: Docusate Sodium 100 MG CAPSULE PO (06:56)
[2024-09-11] MEDS: Calcium + Vitamin D 250 MG TABLET 500 MG PO (06:56)
--- NOTE | 2024-09-11 06:57 | HO.NEURO.PN ---
Neurosurgery Operative Note Date of Service: 09/11/24 Narrative: POD: 1 Procedure: L5-S1 TLIF Haydee is a pleasant 74-year-old female who underwent L5-S1 TLIF with Dr. Chen yesterday. She reports she has been up OOB walking with assistance and is otherwise doing well. She feels her back pain is better than pre-operatively. She does still have acute surgical incision site pain but reports good relief with current pain medication regimen. She is voiding well, tolerating diet. Afebrile, vital signs stable. Full strength 5/5 bilateral LE's. Back dressings have some staining without signs of hematoma. No active sanguineous drainage. Area is dry. Plan: Mariposa 74-year-old female who underwent L5-S1 TLIF with Dr. Chen yesterday. She is progressing normally as expected. Patient meets criteria to be medically discharged home. I will send in a prescription for Oxycodone to our pharmacy here at [facility]. This plan was discussed with the attending neurosurgeon Dr. Chen. Pastor Chen MD,PhD [facility]
--- NOTE | 2024-09-11 07:28 | P.DS_ITS ---
DS: Providers Provider Date of Service: 09/11/24 Date of discharge: 09/11/24 Primary care physician: Maya Wiggins MD DS: Summary Time Attestation Discharge Coordination Time (in mins): 12 Quality: Safe Use of Opioids Does Pt have an Active Cancer Diagnosis on the Problem List?: No Quality: Stroke Does the patient have a stroke diagnosis?: No Physical Exam Vital Signs: Vital Signs: Last Vital Signs Temp 98.1 F 09/11/24 03:36 Pulse 80 09/11/24 03:36 Resp 18 09/11/24 03:36 BP 117/53 L 09/11/24 03:36 Pulse Ox 96 09/11/24 03:36 O2 Del Method Room Air 09/11/24 03:36 O2 Flow Rate 2 09/10/24 15:20 BMI result Body Mass Index 33.2 DS: Data Data Completed and Pending Labs on day of discharge: Laboratory Results - last 24 hr 09/10/24 08:45 Blood Type A Positive Antibody Screen NEGATIVE Discharge Plan Discharge Patient Disposition: Home, Self-Care Referrals: Maya Wiggins MD [Primary Care Provider] - 1 Week Discharge Medications: New oxycodone 5 mg tablet See Rx Instructions .ROUTE .COMPLEX PRN (Reason: pain) Qty: 30 0RF Rx Instructions: Take 1-2 tablets by mouth every 4 hours as needed for breakthrough pain. Continued sertraline 100 mg tablet 2 tab PO DAILY oxycodone-acetaminophen 5-325 mg tablet 1 tab PO BID PRN (Reason: Pain) lorazepam 0.5 mg tablet 0.5 mg PO BID gabapentin 100 mg capsule 200 mg PO TID diclofenac sodium 1 % gel 2 g topical BID PRN (Reason: Pain) levothyroxine 25 mcg tablet 25 mcg PO DAILY@0600 biotin 1 mg Tablet 1 mg PO DAILY albuterol sulfate 90 mcg/actuation HFA aerosol inhaler 2 puff inhalation Q6H PRN (Reason: Shortness Of Breath Or Wheezing) Calcium 600 with Vitamin D3 600 mg-10 mcg (400 unit) tablet,chewable 1 tab PO DAILY Discharge Orders: Discharge Order (Routine); Ordered 09/11/24 Ordered By: Pastor Chin Diet: Advance to usual diet Activity on Discharge: As tolerated Activity Restrictions/Additional Instructions: After your spinal surgery we ask you to observe the following restricti ons/guidelines: Activity: It is normal to feel some discomfort as you increase your activity, but that will improve with time. We ask you avoid heavy lifting or acitivities that cause pain. As a general rule, 8lbs is a safe limit for lifting right after surgery. Walk as much as you feel comfortable but not to exhaustion. You will feel extra tired the first few days after surgery. Stay well hydrated. It is OK to walk up and down stairs You may return to driving when you are off narcotics (such as vicodin, oxycodone, dilaudid, etc), and you are back to normal functional capacity. If you have any concerns please check with office before driving. Return to work is specific to each patient and each surgery, so please speak with your doctor/PA at first follow up. Please bring paperwork such as FMLA at that time if you need it filled out. Medications: You are currently prescribed Oxycodone-Acetaminophen. Please use this alongside ibuprofen for pain. Utilize the Oxycodone 5mg that we prescribed today only for pain that persists despite this. We recommend you take 1,000mg Tylenol every 8 hours for the first few weeks a fter surgery, if you do not have any liver issues and can tolerate this medication. Do not exceed 4,000mg daily. We will give you a short supply of narcotics after surgery (usually one weeks worth). If you need more please call the office but do not use more than prescribed. You will need to give our office 48 hours notice if you need narcotics refilled and we do not fill narcotics on weekends or evenings. If you are on a narcotic, it is a good idea to take a stool softener such as colace or senna to avoid constipation If you take blood thinner such as aspirin, Plavix, Coumadin, Effient, Eliquis etc for conditions such as Afib, DVT, Pulmonary embolus, coronary disease, stents etc please speak with your surgeon about specific details as to when you can resume these medications. You can resume NSAIDs on post op day 1 (eg: Motrin, Naproxen, etc). Follow up: Please call the office, , after surgery to arrange a 3 week follow up for wound check. Wound Care: You may remove your dressing on the first day after surgery. ?You may ?leave open to air. Please do not remove the steri strips underneath. they will fall off on their own in one week. IT IS NORMAL FOR THE WOUND TO OOZE OR BE BLOODY FOR A FEW DAYS AFTER SURGERY. ?IF THIS HAPPENS JUST PLACE NEW DRESSING OVER IT TO AVOID STAINING CLOTHES. You may shower on post op day # 1 We ask that you do not let the water soak the wound. If it does get wet, just towel dry lightly. Please do not scrub your incision or place any type of chemical/ointment on the wound. No tub baths, pools or jacuzzis for one month. If you have any leaking or redness from your wound, or fevers, please call the office. Print Language: Russian
[2024-09-11] MEDS: Gabapentin 100 MG CAPSULE 200 MG PO (07:34)
[2024-09-11] MEDS: LORazepam 0.5 MG TABLET PO (07:34)
[2024-09-11] MEDS: Sertraline HCL 100 MG TABLET 200 MG PO (07:35)
[2024-09-11 08:10] VITALS: BP 138/68; PULSE 82; RESP 12; TEMP 36.1; O2SAT 97
--- NOTE | 2024-09-11 09:02 | HO.POSTANES ---
Post Anesthesia Evaluation Post Anesthesia Evaluation Date of Service: 09/11/24 Vital Signs: Vital Signs Temp Pulse Resp BP Pulse Ox O2 Del Method 09/11/24 08:10 96.9 F 82 12 138/68 97 Room Air 09/11/24 03:36 98.1 F 80 18 117/53 L 96 Room Air 09/10/24 23:20 98.2 F 87 18 104/53 L 97 Room Air Anesthesia: General Endotracheal-GETA Mental Status: Awake Pain Control: Satisfactory Nausea/Vomiting: None Hydration: Adequate Anesthesia-Related Issues: No Anes. Related Issues
--- NOTE | 2024-09-11 09:31 | MHC.CM.PN ---
[facility] DELIVERED PT LIVES WITH SPOUSE AND IS FUNCTIONALLY INDEP. +DRIVES. NO SERVICES +HCP PCP DP: PT HAS BEEN MEDICALLY CLEARED FOR DC HOME, NO SERVICES. PT'S SPOUSE WILL TRANSPORT HOME.
[2024-09-11 10:54] VITALS: BP 156/67; PULSE 92; RESP 17; TEMP 36.9; O2SAT 98
== END 2024-09-11 10:58 | disposition home or self-care (01) ==
LOC: HO.SSS 07:57 → HO.S3 13:26
PROVIDERS: Nurse Practitioner; PCP Internal Medicine; Visit Provider Neurological Surgery
PROC: (CPT 22630; principal; 2024-09-10 10:40)
DX: M48.01 Spinal stenosis, occipito-atlanto-axial region (principal); M54.50 Low back pain, unspecified; G47.33 Obstructive sleep apnea (adult) (pediatric)
CPT/HCPCS: 22630; 22840; 22853; 20930; 20936; 36415; 80048; 85027; 86850; 86900; 86901; 93005; 97161; C1713; J0131; J0666; J0690; J1100; J1171; J1885; J2003; J2250; J2371; J2405; J2704; J2795; J3010; L8699

== ENCOUNTER → 2024-09-10 07:56 | Outpatient (BNV) | payer MEDICARE, SELFPAY | PROVIDERS: PCP Internal Medicine; Visit Provider Neurological Surgery | DX: M51.362 Other intervertebral disc degeneration, lumbar region with discogenic back pain and lower extremity pain (principal) | CPT/HCPCS: 20930; 20936; 22633; 22840; 22853; 63052; 99024; 99499 ==

== ENCOUNTER 2024-10-01 13:50 | Outpatient (REF) | payer MEDICARE, SELFPAY ==
--- OUTSIDE RECORDS SUMMARY | 2024-10-01 15:43 | XMS_ITS | Clinical Summary ---
Author Organization [facility] [address] [place] [address] Address [address] [place] [address] Phone Care Team Providers Care Smoking Pipe Maker Name Role Phone Maya Wiggins MD Primary Care Provider [phone] Allergies Active Allergy Reactions Criticality Noted Date [...] COPD Obstructive sleep apnea 07/12/2017 Overview (02/12/2024): [facility] Home Polysomnogram: Date 07/10/2017; AHI 5, Unclassified apneas 0; Obstructive apneas 0; Central apneas 0; Mixed apneas 0; hypopneas 26; average oxygen saturation 94% (lowest 89% without saturations <88% for 5% or more of study) [facility] diagnostic polysomnogram 07/15/2021; weight 179; BMI 31. [...] Description 09/13/2024 Telephone Lung Screening Program - [facility] [address] [place] [address] Myranda Xiao [place] Appointment 08/30/2024 2:30 PM EDT Office Visit Adult Medicine [address] [address] Maay Wiggins MD PE (physical exam), annual (Primary [...] 10 years. UPPER GASTROINTESTINAL ENDOSCOPY 02/28/2014 PROCEDURE: [place] UPPER GI ENDOSCOPY PERFORMED; COMMENT: Visually normal on PPI treatment. Mid esophageal biopsies obtained: normal BREAST SURGERY Bilateral PROCEDURE: NH UNLISTED PROCEDURE BREAST; COMMENT: reduction HAND SURGERY 11/14/2019 Left PROCEDURE: HISTORICAL HAND SURGERY; COMMENT: ORIF left index finger dr. 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 For example, child monitor or elderly care for an older adult? [...] Info) Description 11/02/2024 9:15 AM EDT Appointment [facility] CT Scan [address] [place] [phone] 12/11/2024 2:00 PM EDT Office Visit Adult Medicine [address] [address] Maya Wiggins MD [address] [place] [address] 12/24/2024 8:30 AM EDT Office Visit Bariatric Surgery - [facility] [address] [phone] Ameena Kessler PA [address] [address] Health Maintenance Due Date Last Done Comments [...] LAB CHEMISTRY METHOD 09/02/2024 7:13 PM EDT [facility] Blood Venous blood specimen / Unknown Venipuncture / Unknown 09/02/2024 12:31 PM EDT 09/02/2024 12:32 PM EDT Maya Wiggins MD LAB BLOOD ORDERABLES Final Resul t [facility] [address] [place] [address], [place] [phone] * (ABNORMAL) Lipid panel with reflex to direct LDL (09/02/2024 12:31 PM EDT) Cholesterol 201(H) 0 - 200 mg/dL LAB CHEMISTRY METHOD 09/02/2024 6:20 PM EDT [facility] Triglycerides 218(H) 0 - 150 mg/dL LAB CHEMISTRY METHOD 09/02/2024 6:20 PM EDT [facility] HDL 48 >=40 mg/dL LAB CHEMISTRY METHOD 09/02/2024 6:20 PM EDT [facility] LDL Calculated 109(H) 0 - 100 mg/dL LAB CHEMISTRY METHOD 09/02/2024 6:20 PM EDT [facility] VLDL Cholesterol David 43.6 mg/dL LAB CHEMISTRY METHOD 09/02/2024 6:20 PM EDT [facility] Non HDL Chol. (LDL+VLDL) 153(H) <145 mg/dL LAB CHEMISTRY METHOD 09/02/2024 6:20 PM EDT [facility] Chol/HDL Ratio 4.2 0.0 - 4.4 LAB CHEMISTRY METHOD 09/02/2024 6:20 PM EDT [facility] Blood Venous blood specimen / Unknown Venipuncture / Unknown 09/02/2024 12:31 PM EDT 09/02/2024 12:32 PM EDT us Maya Wiggins MD LAB BLOOD ORDERABLES Final Resul t [facility] [address] [place] [address], * (ABNORMAL) CBC auto differential (09/02/2024 12:31 PM EDT) WBC 5.5 4.8 - 10.8 K/mcL LAB HEMETOLOGY METHOD 09/02/2024 3:05 PM [facility] RBC 4.10 3.80 - 4.80 M/mcL LAB HEMETOLOGY METHOD 09/02/2024 3:05 PM [facility] Hemoglobin 12.7 11.5 - 16.0 g/dL LAB HEMETOLOGY METHOD 09/02/2024 3:05 PM [facility] Hematocrit 37.3 35.0 - 47.0 % LAB HEMETOLOGY METHOD 09/02/2024 3:[facility] MCV 90.8 79.0 - 98.0 FL LAB HEMETOLOGY METHOD 09/02/2024 3:05 PM [facility] MCH 30.9 27.0 - 32.0 pcg LAB HEMETOLOGY METHOD 09/02/2024 3:05 PM [facility] MCHC 34.0 32.0 - 37.0 g/dL LAB HEMETOLOGY METHOD 09/02/2024 3:05 PM [facility] RDW 15.2(H) 11.0 - 15.0 % LAB HEMETOLOGY METHOD 09/02/2024 3:05 PM [facility] Platelets 115(L) 130 - 400 K/mcL LAB HEMETOLOGY METHOD 09/02/2024 3:05 PM [facility] MPV 8.7 7.0 - 11.0 FL LAB HEMETOLOGY METHOD 09/02/2024 3:05 PM [facility] NRBC 0.0 <1.0 % LAB HEMETOLOGY METHOD 09/02/2024 3:05 PM [facility] NRBC Absolute 0.00 <0.10 K/mcL LAB HEMETOLOGY METHOD 09/02/2024 3:05 PM [facility] Neutrophils Relative 71.6 % LAB HEMETOLOGY METHOD 09/02/2024 3:05 PM [facility] Lymphocytes Relative 20.0 % LAB HEMETOLOGY METHOD 09/02/2024 3:05 PM [facility] Monocytes Relative 6.0 % LAB HEMETOLOGY METHOD 09/02/2024 3:05 PM [facility] Eosinophils Relative 1.6 % LAB HEMETOLOGY METHOD 09/02/2024 3:05 PM [facility] Basophils Relative 0.4 % LAB HEMETOLOGY METHOD 09/02/2024 3:05 PM [facility] Immature Granulocytes Relative 0.4 % LAB HEMETOLOGY METHOD 09/02/2024 3:05 PM [facility] Neutrophils Absolute 3.95 1.50 - 7.00 K/mcL LAB HEMETOLOGY METHOD 09/02/2024 3:05 PM [facility] Lymphocytes Absolute 1.10 1.00 - 5.00 K/mcL LAB HEMETOLOGY METHOD 09/02/2024 3:05 PM [facility] Monocytes Absolute 0.33 0.20 - 1.00 K/mcL LAB HEMETOLOGY METHOD 09/02/2024 3:05 PM EDT [facility] Eosinophils Absolute 0.09 0.00 - 0.50 K/[facility] LAB HEMETOLOGY METHOD 09/02/2024 3:05 PM EDT [facility] Basophils Absolute 0.02 0.00 - 0.20 K/[facility] LAB HEMETOLOGY METHOD 09/02/2024 3:05 PM EDT [facility] Immature Granulocytes Absolute 0.02 0.00 - 0.03 K/[facility] LAB HEMETOLOGY METHOD 09/02/2024 3:05 PM EDT [facility] Blood Venous blood specimen / Unknown Venipuncture / Unknown 09/02/2024 12:31 PM EDT 09/02/2024 12:32 PM EDT us Maya Wiggins MD LAB BLOOD ORDERABLES Final Resul t Performing Organization Address City/[facility]/ZIP Co de Phone Number [facility] [address] [place] [address], [place] [phone] * Vitamin D 25 hydroxy (09/02/2024 12:31 PM EDT) Vit D, 25-Hydroxy 34.9 30.0 - 80.0 ng/mL LAB CHEMISTRY METHOD 09/02/2024 7:12 PM EDT [facility] Blood Venous blood specimen / Unknown Venipuncture / Unknown 09/02/2024 12:31 PM EDT 09/02/2024 12:32 PM EDT us Maya Wiggins MD LAB BLOOD ORDERABLES Final Resul t [facility] [address] [place] [address], [place] [phone] * (ABNORMAL) Comprehensive metabolic panel (09/02/2024 12:31 PM EDT) Sodium 141 133 - 145 mmol/L LAB CHEMISTRY METHOD 09/02/2024 6:20 PM [facility] Potassium 3.9 3.5 - 5.5 mmol/L LAB CHEMISTRY METHOD 09/02/2024 6:20 PM [facility] Chloride 107 96 - 110 mmol/L LAB CHEMISTRY METHOD 09/02/2024 6:20 PM [facility] CO2 27 21 - 32 mmol/L LAB CHEMISTRY METHOD 09/02/2024 6:20 PM [facility] Anion Gap 7 3 - 11 LAB CHEMISTRY METHOD 09/02/2024 6:20 PM [facility] Glucose 102(H) 70 - 100 mg/dL LAB CHEMISTRY METHOD 09/02/2024 6:20 PM [facility] BUN 18 5 - 25 mg/dL LAB CHEMISTRY METHOD 09/02/2024 6:20 PM [facility] Creatinine 0.96 0.50 - 1.10 mg/dL LAB CHEMISTRY METHOD 09/02/2024 6:20 PM [facility] eGFR 63 >=60 mL/min/1. 73m2 LAB CHEMISTRY METHOD 09/02/2024 6:20 PM [facility] Comment:Calculation based on the??Chronic Kidney Disease Epidemiology Collaboration (CKD-EPI) equation refit??without adjustment for race. BUN/Creatinine Ratio 18.8 LAB CHEMISTRY METHOD 09/02/2024 6:20 PM [facility] Calcium 9.5 8.5 - 10.5 mg/dL LAB CHEMISTRY METHOD 09/02/2024 6:20 PM [facility] AST (SGOT) 20 10 - 42 unit/L LAB CHEMISTRY METHOD 09/02/2024 6:20 PM [facility] ALT (SGPT) 22 10 - 60 unit/L LAB CHEMISTRY METHOD 09/02/2024 6:20 PM EDT [facility] Alkaline Phosphatase 77 42 - 121 unit/L LAB CHEMISTRY METHOD 09/02/2024 6:20 PM EDT [facility] Total Protein 7.6 6.0 - 8.0 g/dL LAB CHEMISTRY METHOD 09/02/2024 6:20 PM EDT [facility] Albumin 4.0 3.2 - 5.0 g/dL LAB CHEMISTRY METHOD 09/02/2024 6:20 PM EDT [facility] Total Bilirubin 1.3 0.0 - 1.4 mg/dL LAB CHEMISTRY METHOD 09/02/2024 6:20 PM EDT [facility] Blood Venous blood specimen / Unknown Venipuncture / Unknown 09/02/2024 12:31 PM EDT 09/02/2024 12:32 PM EDT Maya Wiggins MD LAB BLOOD ORDERABLES Final Resul t [facility] [address] [place] [address], * Depression Screening (08/29/2023) Depression Screening Abstracted [...] PM EDT Narrative 03/23/2023 1:56 PM EST [facility] Diagnostic Imaging Department [address] [place], [place] [id number] Patient: ??NACHO DAVID ?/Age/Sex: 1950 - 73 - F Unit#: ??[id number] ? Location/Status: ??SPDICATLS/REG CLI ? Mnemonic/Ordering Site: ??CTLUNGLD/SPCT Ordering Physician: ??SUKHJINDER OSHEA MD CT Lung Screening Low Dose - 03/16/23 - Report Status:Signed ADDENDUM Addendum: I was asked to review the patient is on CT lung screen with regards to the subcapsular splenic hematoma. COMPARISON: Outside CT scan of the abdomen dated 10/12/2022 from [place]. Current examination is extremely limited with incomplete [...] contrast. DLP: 163.14 mGy/cm ??CTDIvol: 4.83 mGy StudioEXT Iterative reconstruction technique Findings: Chest: There is [...] suggestive of an inflammatory or infectious process. [id number] G9637 G9557 G9551 Dictating Physician: ??JAVIER PARKER MD Electronically Signed by: ??JAVIER PARKER MD Dic Date/Time: ??03/21/23 1759 Sign date/Time: ??03/21/23 1812 Procedure Note Javier Parker MD - 06/20/2023 [facility] Diagnostic Imaging Department [address] [place] [address] Patient: NACHO DAVID /Age/Sex: 1950 - 73 - F Unit#: [id number] Location/Status: SPDICATLS/REG CLI Mnemonic/Ordering Site: [facility] Ordering Physician: SUKHJINDER OSHEA MD CT Lung Screening Low Dose - 03/16/23 - Report Status:Signed ADDENDUM Addendum: I was asked to review the patient is on CT lung screen with regards tothe subcapsular splenic hematoma. COMPARISON: Outside CT scan of the abdomen [place]. Current examination is extremely limited with incomplete [...] Findings suggestive of an inflammatory orinfectious process. [id number] G9637 G9557 G9551 Dictating Physician: JAVIER PARKER MD Electronically Signed by: JAVIER PARKER MD Dic Date/Time: 03/21/23 4535 Sign date/Time: 03/21/231811 us Sukhjinder Oshea MD [...] to have osteoporosis by WHO criteria. The [facility] Department of Internal Medicine recommends using National [...] alternative screening schedule based on jose Anguiano., [facility] June 02, 2011 for patients with [...] to have osteoporosis by WHO criteria. The [facility] Department of Internal Medicine recommendsusing National Osteoporosis [...] alternative screening schedule based on jose Anguiano., [facility] for patients with osteopenia (based [...] to [place] [phone] [employer] MEDICARE ADVANTAGE Care Teams Smoking Pipe Maker Relationship Specialty Start Date End Date Maya Wiggins MD [address] [place] [address] PCP - General Internal Medicine 05/22/24
== END 2024-10-01 13:51 | disposition home or self-care (01) ==
LOC: HO.HOSX 13:50
PROVIDERS: PCP Internal Medicine; Visit Provider Physician Assistant
DX: M54.50 Low back pain, unspecified (principal); Z98.890 Other specified postprocedural states; Z79.891 Long term (current) use of opiate analgesic
CPT/HCPCS: 99212

== ENCOUNTER 2024-10-01 13:50 | Outpatient (AMB) | payer MEDICARE, SELFPAY ==
--- NOTE | 2024-10-01 14:01 | A.SPINEOV_ITS ---
Intake Visit Reasons: 1st post op Intake Note: Mrs. 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: No Allergies amoxicillin [From Augmentin] Allergy (Verified 09/10/24 08:15) Hives clavulanic acid [From Augmentin] Allergy (Verified 09/10/24 08:15) Hives duloxetine Allergy (Verified 09/10/24 08:15) Hives escitalopram Allergy (Verified 09/10/24 08:15) Unknown fluoxetine Allergy (Verified 09/10/24 08:15) Unknown risedronate sodium Allergy (Verified 09/10/24 08:15) Unknown venlafaxine Allergy (Verified 09/10/24 08:15) Unknown Assessment & Plan Assessment & Plan (1) Lumbago: Code(s): M54.50 - Low back pain, unspecified Category: Medical Plan Procedure: L5-S1 TLIF Haydee is a pleasant 74 year old female who underwent L5-S1 TLIF completed by Dr. Chen about 3 weeks ago. She reports that she has had fairl significant continued low back pain since the surgery. She has been ambulating around her home but has not gone out much to the store or outside. She has been completing stairs, but states she does get exacerbations of pain when attempting to do so. She continues to take the oxycodone that was prescribed by her primary care physician. No new neurological deficits. The patients ambulates well and rises from a seated position with the assistance of a chair. Her posterior incision sites are closed and well healing. I would like Haydee to follow up again with us routinely in 6 weeks with a set of X-rays. I believe she is most likely suffering from some postoperative inflammation, which should subside around weeks 4-6 after surgery. Pastor Chen MD,PhD [facility] Coding Level of Care Code Global (72049) Diagnoses Lumbago M54.50
--- OUTSIDE RECORDS SUMMARY | 2024-10-01 15:06 | XMS_ITS | Patient Health Record ---
[facility] Harjit luda Zarate Address [address] [place] [address] Care Team Providers Care Hazardous Materials Analyst Name Role Phone Shu DE LA CRUZ, Cynthia Lemus Primary Care Provider Susy Goins Unavailable [phone] Allergies No Known Allergies Reason For Referral [...] Problem Status W/U Status Risk Notes Problem [id number] Hallux valgus (acquired), left foot (M20.12) Active confirmed Problem [id number] Hallux valgus (acquired), right foot (M20.11) Active confirmed Problem [id number] Neuropathy (G62.9) Active confirmed Plan Of Treatment No Information Insurance Providers Payer Name Payer Address Payer Phone Subscriber Number Group Number Insured Name Patient Relationship to Insured Coverage Start Date Coverage End Date [employer] [place] [employer] [address] [facility] [place] [address] [id number] Haydee David Self - patient is the insured Medical (General) History Medical History History ICD Code Anxiety Arthritis Back,Hip,and Knee pain Broken bones Depression Fibromyalgia Headaches/Migraines Keloid/Thick Scar Measles Joint implants/screws Numbness Osteoporosis Reflux ( GERD) Sciatica thyroid Surgical History Surgery Date(Month/Year) Hand Surgery hernia knee surgery mastectomy 11/2014 hernia surgery-mass- no findings 11/2020
--- OUTSIDE RECORDS SUMMARY | 2024-10-01 15:06 | XMS_ITS | Patient Health Record ---
Author Organization [facility] Address [address] [place] [address] Care Team Providers Care Deputy Sheriff [employer] Services Name Role Phone RASTA LR Unavailable [phone] Reason For Referral No Information Plan Of Treatment No Information Insurance Providers Payer Name Payer Address Payer Phone Subscriber Number Group Number Insured Name Patient Relationship to Insured Coverage Start Date Coverage End Date [employer] [place] [employer]age [address] [place] [phone] [id number] Haydee David Self - patient is the insured
--- OUTSIDE RECORDS SUMMARY | 2024-10-01 15:06 | XMS_ITS | Clinical Summary ---
Author Organization [facility] [address] [place] [address] [address] [place] [address] Phone Care Team Providers Care Refrigerating Engineer Head Name Role Phone Maya Wiggins MD Primary Care Provider [phone] Allergies Active Allergy Reactions Criticality Noted Date Comments Amoxicillin-Pot Clavulanate 02/11/20 Duloxetine Itching 07/11/2013 Escitalopram Itching 08/31/2015 Fluoxetine 09/28/2015 Disturbing dreams, nausea Risedronate Sodium 08/03/2005 hives Venlafaxine Itching 11/08/2012 Medications sertraline (ZOLOFT) 100 mg tablet Take 2 tablets (200 mg total) by mouth 1 (one) time each day. 3 Active CALCIUM-VITAMIN D3-MAGNESIUM ORAL Take by mouth. CALCIUM-MAGNE SIUM-VITAMIN D 500-250-125 MG-MG-UNIT OR TABS Active albuterol HFA (PROAIR HFA ; PROVENTIL HFA ; VENTOLIN HFA) 90 mcg/actuation inhaler Inhale 2 puffs by mouth every 6 (six) hours if needed for wheezing. Inhale 2 Puffs into the lungs 4 times daily as needed for Cough, Wheezing or Shortness of Breath. 6.7 g 5 Active ibuprofen (ADVIL,MOTRIN) 600 mg tablet Take 1 tablet (600 mg total) by mouth every 6 (six) hours if needed for mild pain or moderate pain. Take 1 Tablet by mouth every 6 hours as needed for Pain. 90 tablet 5 Active levothyroxine (SYNTHROID, LEVOTHROID) 25 mcg tablet TAKE 1 TABLET BY MOUTH DAILY 90 tablet 1 5 Active gabapentin (NEURONTIN) 100 mg capsule Take 2 capsules (200 mg total) by mouth 3 (three) times a day. 180 capsule 2 5 Active diclofenac (VOLTAREN) 1 % topical gel Apply 2 g topically 2 (two) times a day if needed (Hand pain). Apply 2 g topically 2 times daily as needed (Pain). 60 g 5 Active oxyCODONE-aceta minophen (PERCOCET) 5-325 mg per tablet Take 1 tablet by mouth 2 (two) times a day if needed for severe pain. Max Daily Amount: 2 tablets 56 tablet 5 Active LORazepam (ATIVAN) 0.5 mg tablet Take 1 tablet (0.5 mg total) by mouth 2 (two) times a day. Max Daily Amount: 1 mg 56 tablet 5 Active oxyCODONE-aceta minophen (PERCOCET) 5-325 mg per tablet Take 1 tablet by mouth 2 (two) times a day if needed for severe pain. Max Daily Amount: 2 tablets 56 tablet 5 09/07/19 25 Discontinu ed(Reorder ) LORazepam (ATIVAN) 0.5 mg tablet Take 1 tablet (0.5 mg total) by mouth 2 (two) times a day. Max Daily Amount: 1 mg 56 tablet 5 09/24/19 25 Discontinu ed(Reorder ) Active Problems Problem Noted Date Diagnosed Date [...] COPD Obstructive sleep apnea 07/12/2017 Overview (02/12/2024): [facility] [place] Home Polysomnogram: Date 07/10/2017; AHI 5, Unclassified apneas 0; Obstructive apneas 0; Central apneas 0; Mixed apneas 0; hypopneas 26; average oxygen saturation 94% (lowest 89% without saturations <88% for 5% or more of study) [facility] [place] diagnostic polysomnogram 07/15/2021; weight 179; BMI 31. [...] Encounters Date Type Department Care Team Description 09/13/2024 Telephone Lung Screening Program - [place] [address] [place] [address] Myranda Xiao MA Appointment 08/30/2024 2:30 PM EDT Office Visit Adult Medicine [address] [phone] Maya Wiggins MD PE (physical exam), annual (Primary Dx); Screening for lung cancer; Vitamin D deficiency; BMI 35.0-35.9,adult from Last 3 Months Immunizations Name Administration Dates Next Due COVID-19 (Moderna/Spikevax) 12yo and older 08/11/2022 H1N1 Inj Preservative Free 04/25/2009 Influenza trivalent, 0.5mL ( Fluzone High-dose) 65yo and older 05/05/2023,02/15/2021,01/24/2020,02/12,06/01/2017 Influenza trivalent, with pr eservative (Fluzone; Afluria) 6mo and older 02/21/2019,04/28/2016,01/14/2014,03/17,02/02/2012,03/29/2010,04/25/2009 ,03/12/2008,03/17/2007,04/23/2006 Pfizer SARS-CoV-2 COVID-19, mRNA, LNP-S, preservative free 04/16/2021 [...] 10 years. UPPER GASTROINTESTINAL ENDOSCOPY 02/28/2014 PROCEDURE: [place] UPPER GI ENDOSCOPY PERFORMED; COMMENT: Visually normal on PPI treatment. Mid esophageal biopsies obtained: normal BREAST SURGERY Bilateral PROCEDURE: [place] UNLISTED PROCEDURE BREAST; COMMENT: reduction HAND SURGERY 11/14/2019 Left PROCEDURE: HISTORICAL HAND SURGERY; COMMENT: ORIF left index finger dr. parra OTHER SURGICAL HISTORY 11/26/2020 N/A PROCEDURE: [place] RPR UMBILICAL HRNA 5 YRS/> REDUCIBLE; COMMENT: [...] Peripheral neuropathy due to disorder of metabolism (CMS/HCC V24) 01/27/2021 DX:Peripheral neuropathy d ue to disorder of metabolism ([facility]); COMMENT: hypothyroidism Obstructive sleep apnea DX:Obstr uctive [...] Smoking Tobacco: Former Cigarettes Q uit: 05/28/2015 Passive Smoke Exposure: Never Smokeless Tobacco: Never Alcohol Use Standard Drinks/Week Comments Not Currently 0 (1 standard drink = 0.6 oz pur e alcohol) Housing Instability Answer Date Recorde d Are you worried that in the next 2 months you may not have stable housing? No 08/30/2024 Food Access & Nutrition Answer Date Rec orded Do you have access to a vari ety of food including fruits and vegetables? No 08/30/2024 Access to Healthcare Answer Date Record ed Within the last 3 months, ho w many times did you visit the emergency department for your medical care? 0 08/30/2024 Health Literacy Answer Date Recorded How often do you need to hav e someone help you when you read instructions, pamphlets, or other written material from your doctor or pharmacy? Never 08/30/2024 Caregiver: How often do you need to have someone help you when you read instructions, pamphlets, or other written material from your doctor or pharmacy? Not on file 08/30/2024 Financial Risk Answer Date Recorded How hard is it for you to pa y for the very basics like food, housing, medical care, and air conditioning / heating? Not very hard 08/30/2024 Transportation Answer Date Recorded Has the lack of transportati on kept you from meetings, work, or from getting things needed for daily living? No Has the lack of transportati on kept you from medical appointments or from getting medications? No 08/30/2024 Social Isolation Answer Date Recorded How often do you feel lonely or isolated from th ose around you? Never 08/30/2024 Food Risk Answer Date Recorded Within the past 12 months we worried whether our food would run out before we got money to buy more. Never true 08/30/2024 Within the past 12 months th e food we bought just didn't last and we didn't have money to get more. Never true 08/30/2024 Dependent Care Answer Date Recorded Do you need help finding or paying for care for your loved ones. For example, children counselor or elderly care for an older adult? No 08/30/2024 Education Answer Date Recorded Do you think completing more education or training, like finishing a GED, going to college, or learning a trade, would be helpful for you? No 08/30/2024 Employment and Income Answer Date Recor ded During the last four weeks, have you been actively looking for work? No 08/30/2024 Living Situation Answer Date Recorded What is your living situation? 0 08/30/2024 Comments No Sex and Gender Information Value Date Recorded Sex Assigned at Not on file Legal Sex Female 3:59 PM EST Gender Identity Not on file Sexual Orientation Not on file Obstetrics History Last Filed Vital Signs Vital Sign Reading Time Taken Comments Blood Pressure 126/72 08/30/2024 2:23 PM EDT Pulse 76 08/30/2024 2:23 PM EDT Temperature 36.6 ??C (97.8 ??F) 08/30/2024 2:23 PM ED T Respiratory Rate 14 08/30/2024 2:23 PM EDT Oxygen Saturation 98% 08/30/2024 2:23 PM EDT Inhaled Oxygen Concentration - - Weight 89.8 kg (198 lb) 08/30/2024 2:23 PM EDT Height 160 cm (5' 3 ) 08/30/2024 2:23 PM EDT Body Mass Index 35.07 08/30/2024 2:23 PM EDT Plan of Treatment Upcoming Encounters Date Type Department Care Team (Late st Contact Info) Description 11/02/2024 9:15 AM EDT Appointment [facility] CT Scan [address] [place] [phone] 12/11/2024 2:00 PM EDT Office Visit Adult Medicine [address] [phone] Maya Wiggins MD [address] [place] [phone] 12/24/2024 8:30 AM EDT Office Visit Bariatric Surgery - [place] [address] [phone] Ameena Kessler PA [address] [address] Health Maintenance Due Date Last Done Comments Zoster Vaccines (1 of 2) 2001 Colorectal Cancer Screening: Stool Based Tests (FOBT/FIT) 04/23/2022 Medicare Annual Wellness Visit 04/23/2022 Lung Cancer Screening (Low Dose CT) 03/23/2024 03/23/2023, 02/07/2022, 10/22/2020 COVID-19 Vaccine ( season) 2024 03/13/2024, 05/05/2023, 08/11/2022, Additional history exists Osteoporosis Screening (Bone Density Screening) 09/19/2024 09/19/2022, 08/31/2016 Breast Cancer Screening 08/23/2025 08/24/19 24, 05/06/2022, 03/22/2021, Additional history exists Depression Screening 08/30/2025 08/30/2024, 08/29/19 Falls Risk Assessment 08/30/2025 08/30/2024 Social Influencers of Health Screening 08/30/2025 08/30/2024 RSV Immunization Adult Patients (1 - 1-dose 75+ series) 2026 DTaP,Tdap,and Td Vaccines (4 - Td or Tdap) 08/30/2026 08/30/2016, 04/28/2012, 02/02/2006 Cholesterol Screening (Lipid Panel) 09/02/2029 09/02/2024, 01/05/2022 Hepatitis C Screening Completed 02/13/2013 Influenza Vaccine Completed 03/13/2024, , 02/25/2022, Additional [...] age to complete this topic Meningococcal B Vaccine Aged Out No l onger eligible based on patient's age to complete this topic RSV Immunization Patients Under 20 months Aged Out No longer eligible based on patient's age to complete this topic Varicella Vaccines Aged Out No longer eligible based on patient's age to complete this topic Procedures Procedure Name Priority Date/Time Associated Diagnosis Comments EXTERNAL XRAY REPORT 09/10/2024 EXTERNAL XRAY REPORT 09/10/2024 CBC WITH AUTO DIFFERENTIAL Routine 09/02/2024 12:31 PM EDT PE (physical exam), annual CBC AND DIFFERENTIAL Routine 09/02/2024 12:31 PM EDT PE (physical exam), annual COMPREHENSIVE METABOLIC PANEL Routine 09/02/2024 12:31 PM EDT PE (physical exam), annual LIPID PANEL WITH REFLEX TO DIRECT LDL Routine 09/02/2024 12:31 PM EDT PE (physical exam), annual VITAMIN D 25 HYDROXY Routine 09/02/2024 12:31 PM EDT Vitamin D deficiency THYROID STIMULATING HORMONE WITH REFLEX TO FREE T4 AND FREE T3 Routine 09/02/2024 12:31 PM EDT PE (physical exam), annual DEPRESSION SCREENING Routine 08/29/2023 SCREENING MAMMOGRAPHY BI 2-VIEW BREAST INC CAD Routine 08/24/2023 4:11 PM EDT Encounter for screening mammogram for malignant neoplasm of breast CT LUNG SCREENING LOW DOSE Routine 03/23/2023 1:56 PM EST Encounter for screening for malignant neoplasm of respiratory organs DXA BONE DENSITY STUDY 1+ SITS AXIAL SKEL Routine 09/19/2022 2:58 PM EDT Age-related osteoporosis without current pathological fracture HEPATITIS C SCREENING Routine 02/13/2013 from Last 3 Months or Most Recently Relevant to Health Maintenance Results * External Xray Report (09/10/2024) Only the most recent of2 resultswithin the time period is included. Anatomical Region Laterality Modality Radiographic Ev ging us Provider [facility] IMG XR PROCEDURES Final Result * Thyroid stimulating hormone with reflex to free t4 and free t3 (09/02/2024 12:31 PM EDT) TSH 1.95 0.40 - 4.00 mcIU/mL LAB CHEMISTRY METHOD 09/02/2024 7:13 PM EDT [facility] Blood Venous blood specimen / Unknown Venipuncture / Unknown 09/02/2024 12:31 PM EDT 09/02/2024 12:32 PM EDT Maya Wiggins MD LAB BLOOD ORDERABLES Final Resul t [facility] [address] [place] [address], [place] [phone] * (ABNORMAL) Lipid panel with reflex to direct LDL (09/02/2024 12:31 PM EDT) Cholesterol 201(H) 0 - 200 mg/dL LAB CHEMISTRY METHOD 09/02/2024 6:20 PM EDT [facility] Triglycerides 218(H) 0 - 150 mg/dL LAB CHEMISTRY METHOD 09/02/2024 6:20 PM EDT [facility] HDL 48 >=40 mg/dL LAB CHEMISTRY METHOD 09/02/2024 6:20 PM EDT [facility] LDL Calculated 109(H) 0 - 100 mg/dL LAB CHEMISTRY METHOD 09/02/2024 6:20 PM EDT [facility] VLDL Cholesterol David 43.6 mg/dL LAB CHEMISTRY METHOD 09/02/2024 6:20 PM EDT [facility] Non HDL Chol. (LDL+VLDL) 153(H) <145 mg/dL LAB CHEMISTRY METHOD 09/02/2024 6:20 PM EDT [facility] Chol/HDL Ratio 4.2 0.0 - 4.4 LAB CHEMISTRY METHOD 09/02/2024 6:20 PM EDT [facility] Blood Venous blood specimen / Unknown Venipuncture / Unknown 09/02/2024 12:31 PM EDT 09/02/2024 12:32 PM EDT us Maya Wiggins MD LAB BLOOD ORDERABLES Final Resul t [facility] [address] [place] [address], * (ABNORMAL) CBC auto differential (09/02/2024 12:31 PM EDT) WBC 5.5 4.8 - 10.8 K/mcL LAB HEMETOLOGY METHOD 09/02/2024 3:05 PM [facility] RBC 4.10 3.80 - 4.80 M/mcL LAB HEMETOLOGY METHOD 09/02/2024 3:05 PM [facility] Hemoglobin 12.7 11.5 - 16.0 g/dL LAB HEMETOLOGY METHOD 09/02/2024 3:05 PM [facility] Hematocrit 37.3 35.0 - 47.0 % LAB HEMETOLOGY METHOD 09/02[facility]2024 [facility] MCV 90.8 79.0 - 98.0 FL LAB HEMETOLOGY METHOD 09/02/2024 3:05 PM [facility] MCH 30.9 27.0 - 32.0 pcg LAB HEMETOLOGY METHOD 09/02/2024 3:05 PM [facility] MCHC 34.0 32.0 - 37.0 g/dL LAB HEMETOLOGY METHOD 09/02/2024 3:05 PM [facility] RDW 15.2(H) 11.0 - 15.0 % LAB HEMETOLOGY METHOD 09/02/2024 3:05 PM [facility] Platelets 115(L) 130 - 400 K/mcL LAB HEMETOLOGY METHOD 09/02/2024 3:05 PM [facility] MPV 8.7 7.0 - 11.0 FL LAB HEMETOLOGY METHOD 09/02/2024 3:05 PM [facility] NRBC 0.0 <1.0 % LAB HEMETOLOGY METHOD 09/02/2024 3:05 PM [facility] NRBC Absolute 0.00 <0.10 K/mcL LAB HEMETOLOGY METHOD 09/02/2024 3:05 PM [facility] Neutrophils Relative 71.6 % LAB HEMETOLOGY METHOD 09/02/2024 3:05 PM [facility] Lymphocytes Relative 20.0 % LAB HEMETOLOGY METHOD 09/02/2024 3:05 PM [facility] Monocytes Relative 6.0 % LAB HEMETOLOGY METHOD 09/02/2024 3:05 PM [facility] Eosinophils Relative 1.6 % LAB HEMETOLOGY METHOD 09/02/2024 3:05 PM [facility] Basophils Relative 0.4 % LAB HEMETOLOGY METHOD 09/02/2024 3:05 PM [facility] Immature Granulocytes Relative 0.4 % LAB HEMETOLOGY METHOD 09/02/2024 3:05 PM [facility] Neutrophils Absolute 3.95 1.50 - 7.00 K/mcL LAB HEMETOLOGY METHOD 09/02/2024 3:05 PM [facility] Lymphocytes Absolute 1.10 1.00 - 5.00 K/mcL LAB HEMETOLOGY METHOD 09/02/2024 3:05 PM [facility] Monocytes Absolute 0.33 0.20 - 1.00 K/mcL LAB HEMETOLOGY METHOD 09/02/2024 3:05 PM EDT [facility] Eosinophils Absolute 0.09 0.00 - 0.50 K/[facility] LAB HEMETOLOGY METHOD 09/02/2024 3:05 PM EDT [facility] Basophils Absolute 0.02 0.00 - 0.20 K/[facility] LAB HEMETOLOGY METHOD 09/02/2024 3:05 PM EDT [facility] Immature Granulocytes Absolute 0.02 0.00 - 0.03 K/[facility] LAB HEMETOLOGY METHOD 09/02/2024 3:05 PM EDT [facility] Blood Venous blood specimen / Unknown Venipuncture / Unknown 09/02/2024 12:31 PM EDT 09/02/2024 12:32 PM EDT us Maya Wiggins MD LAB BLOOD ORDERABLES Final Resul t Performing Organization Address City/[facility]/ZIP Co de Phone Number [facility] [address] [place] [address], [place] [phone] * Vitamin D 25 hydroxy (09/02/2024 12:31 PM EDT) Vit D, 25-Hydroxy 34.9 30.0 - 80.0 ng/mL LAB CHEMISTRY METHOD 09/02/2024 7:12 PM EDT [facility] Blood Venous blood specimen / Unknown Venipuncture / Unknown 09/02/2024 12:31 PM EDT 09/02/2024 12:32 PM EDT us Maya Wiggins MD LAB BLOOD ORDERABLES Final Resul t [facility] [address] [place] [address], [place] [phone] * (ABNORMAL) Comprehensive metabolic panel (09/02/2024 12:31 PM EDT) Sodium 141 133 - 145 mmol/L LAB CHEMISTRY METHOD 09/02/2024 6:20 PM [facility] Potassium 3.9 3.5 - 5.5 mmol/L LAB CHEMISTRY METHOD 09/02/2024 6:20 PM [facility] Chloride 107 96 - 110 mmol/L LAB CHEMISTRY METHOD 09/02/2024 6:20 PM [facility] CO2 27 21 - 32 mmol/L LAB CHEMISTRY METHOD 09/02/2024 6:20 PM [facility] Anion Gap 7 3 - 11 LAB CHEMISTRY METHOD 09/02/2024 6:20 PM [facility] Glucose 102(H) 70 - 100 mg/dL LAB CHEMISTRY METHOD 09/02/2024 6:20 PM [facility] BUN 18 5 - 25 mg/dL LAB CHEMISTRY METHOD 09/02/2024 6:20 PM [facility] Creatinine 0.96 0.50 - 1.10 mg/dL LAB CHEMISTRY METHOD 09/02/2024 6:20 PM [facility] eGFR 63 >=60 mL/min/1. 73m2 LAB CHEMISTRY METHOD 09/02/2024 6:20 PM [facility] Comment:Calculation based on the??Chronic Kidney Disease Epidemiology Collaboration (CKD-EPI) equation refit??without adjustment for race. BUN/Creatinine Ratio 18.8 LAB CHEMISTRY METHOD 09/02/2024 6:20 PM [facility] Calcium 9.5 8.5 - 10.5 mg/dL LAB CHEMISTRY METHOD 09/02/2024 6:20 PM [facility] AST (SGOT) 20 10 - 42 unit/L LAB CHEMISTRY METHOD 09/02/2024 6:20 PM [facility] ALT (SGPT) 22 10 - 60 unit/L LAB CHEMISTRY METHOD 09/02/2024 6:20 PM EDT [facility] Alkaline Phosphatase 77 42 - 121 unit/L LAB CHEMISTRY METHOD 09/02/2024 6:20 PM EDT [facility] Total Protein 7.6 6.0 - 8.0 g/dL LAB CHEMISTRY METHOD 09/02/2024 6:20 PM EDT [facility] Albumin 4.0 3.2 - 5.0 g/dL LAB CHEMISTRY METHOD 09/02/2024 6:20 PM EDT [facility] Total Bilirubin 1.3 0.0 - 1.4 mg/dL LAB CHEMISTRY METHOD 09/02/2024 6:20 PM EDT [facility] Blood Venous blood specimen / Unknown Venipuncture / Unknown 09/02/2024 12:31 PM EDT 09/02/2024 12:32 PM EDT Maya Wiggins MD LAB BLOOD ORDERABLES Final Resul t [facility] [address] [place] [address], * Depression Screening (08/29/2023) Depression Screening Abstracted [...] PM EDT Narrative 03/23/2023 1:[address] [facility] Diagnostic Imaging Department [address] [place], [place] [id number] Patient: ??NACHO DAVID ?/Age/Sex: 1950 - 73 - F Unit#: ??[id number] ? Location/Status: ??SPDICATLS/REG CLI ? Mnemonic/Ordering Site: ??CTLUNGLD/SPCT Ordering Physician: ??SUKHJINDER OSHEA MD CT Lung Screening Low Dose - 03/16/23 - Report Status:Signed ADDENDUM Addendum: I was asked to review the patient is on CT lung screen with regards to the subcapsular splenic hematoma. COMPARISON: Outside CT scan of the abdomen dated 10/12/2022 from [place]. Current examination is extremely limited with incomplete [...] by: JAVIER PARKER MD Dictated: 03/23/2302/04/1346 Signed:03/23/23 135 ORIGINAL REPORT History: ??73 year-old 53 pack-year former smoker, asymptomatic, for lung cancer screening. Chronic obstructive pulmonary disease, emphysema, coronary artery disease, quit smoking 4 years ago Comparison: 02/07/2022 and 10/22/2019 Technique: Helical volumetric imaging of the thorax was performed, using low- dose technique, without IV contrast. DLP: 163.14 mGy/cm ??CTDIvol: 4.83 mGy doubleTwistT Iterative reconstruction technique Findings: Chest: There is [...] suggestive of an inflammatory or infectious process. [id number] Dictating Physician: ??JAVIER PARKER MD Electronically Signed by: ??JAVIER PARKER MD Dic Date/Time: ??03/21/23 1759 Sign date/Time: ??03/21/23 1812 Procedure Note Javier Parker MD - 06/20/2023 [facility] Diagnostic Imaging Department [address] [place] [id number] Patient: NACHO DAVID /Age/Sex: 1950 - 73 - F Unit#: [id number] Location/Status: SPDICATLS/REG CLI Mnemonic/Ordering Site: [facility] Ordering Physician: SUKHJINDER OSHEA MD CT Lung Screening Low Dose - 03/16/23 - Report Status:Signed ADDENDUM Addendum: I was asked to review the patient is on CT lung screen with regards tothe subcapsular splenic hematoma. COMPARISON: Outside CT scan of [facility] abdomen [place]. Current examination is extremely limited with incomplete [...] contrast. DLP: 163.14 mGy/cm CTDIvol: 4.83 mGy GE lightspeed VCT Iterative reconstruction technique Findings: Chest: There [...] Findings suggestive of an inflammatory orinfectious process. [id number] [id number] [id number] Dictating Physician: JAVIER PARKER MD Electronically Signed by: JAVIER PARKER MD Dic Date/Time: 03/21/23 3651 Sign date/Time: 03/21/231811 us Sukhjinder Oshea MD IMG CT PROCEDURES Final [...] to have osteoporosis by WHO criteria. [facility] Department of Internal Medicine recommends using National [...] alternative screening schedule based on jose Anguiano., [facility] June 02, 2011 for patients with osteopenia [...] to have osteoporosis by WHO criteria. [facility] Department of Internal Medicine recommendsusing National Osteoporosis [...] alternative screening schedule based on jose Anguiano., [facility] for patients with osteopenia (based on hip BMD T-score) is as follows: * advanced osteopenia (T scores -2.00 to -2.49), BMD testing every year * moderate osteopenia (T scores -1.50 to -1.99), BMD testing every 5years mild osteopenia or normal BMD (T scores -1.50 and higher), BMD testingevery 15 years Maya Wiggins MD IMG DXA PROCEDURES Final Result * Hepatitis C Screening (02/13/2013) Hepatitis C Screening Abstracted Historical Provider MD HEALTH MAINTENANCE Final Result from Last 3 Months or Most Recently Relevant to Health [place] [phone] [employer] Care Teams Refrigerating Engineer Head Relationship Specialty Start Date End Date Maya Wiggins MD [address] [place] [address] PCP - General Internal Medicine 05/22/24
--- OUTSIDE RECORDS SUMMARY | 2024-10-01 15:06 | XMS_ITS | Data Portability ---
Author Organization ELENA drake [address] Address [address] [place] [address] Care Team Providers Care Aerospace Engineer Officer Armament Name Role Phone DARLENE MCCABE Primary Care Provider Assessment Encounter Date Assessment Date Assessment LastModified [...] Lab urinalysis, dipstick 2022 023 [email or web address] 247 _[facility], [address] [place] [address], [address], 3 15:59:10 glucose, fingerstick , blood 2022 023 [email or web address] 247 _[facility], [address] [place] [address], [address], 15:59:10 Referral None recorded. Procedures None recorded. Surgeries None recorded. Imaging electrocard iogram 2022 023 [email or web address] 0 _[address], [address], 16:15:59 Medication Orders None recorded. Patient TargetsNo targets recorded. Patient Instructions Encounter Date Encounter Id Patient Instructions Last Modified By Organization Details Last Modified Time 07/15/2022 [id number] Try small amount s of clear liquids [...] 80-140 = normal normal Not Available maegan [address] [place], [id number], 07/15/2022 15:17:54 07/16/1907/15/2022 gluco se finge rstic k, blood blood sugar - fasting mg/dL 80-125 = normal Not Available maegan [address] [place], [phone], 07/15/2022 15:17:54 07/16/1907/15/2022 urina lysis , dipst ick Unknown Analyte Normal = light yellow Not Available arlyn bowers [address] [place], [address], 07/15/2022 14:33:59 07/16/1907/15/2022 urina lysis , dipst ick Unknown Analyte Yellow Not Available maegan [address] [place], [address], 07/15/2022 14:33:59 07/16/19 23 07/15/2022 urina lysis , dipst ick Unknown Analyte Normal = clear Not Available arlyn bowers [address], [place], [address], 07/15/2022 14:33:59 07/16/19 23 07/15/2022 urina lysis , dipst ick Unknown Analyte Clear Not Available maegan [address], [place], [place], [address], 07/15/2022 14:33:59 07/16/19 23 07/15/2022 urina lysis , dipst ick Unknown Analyte Normal = negati ve Not Available arlyn bowers [address], [place], [address], 07/15/2022 14:33:59 07/16/19 23 07/15/2022 urina lysis , dipst ick Unknown Analyte Negati ve Not Available arlyn bowers [address], [place], [address], 07/15/2022 14:33:59 07/16/19 23 07/15/2022 urina lysis , dipst ick Unknown Analyte Normal = Negati ve Not Available arlyn bowers [address], [place], [address], 07/15/2022 14:33:59 07/16/19 23 07/15/2022 urina lysis , dipst ick Unknown Analyte Negati ve Not Available arlyn bowers [address], [place], [address], 07/15/2022 14:33:59 07/16/19 23 07/15/2022 urina lysis , dipst ick Unknown Analyte Normal = Negati ve Not Available arlyn bowers [address], [place], [address], 07/15/2022 14:33:59 07/16/19 23 07/15/2022 urina lysis , dipst ick Unknown Analyte Negati ve Not Available 2099arlyn [address], [place], [address], 07/15/2022 14:33:59 07/16/19 23 07/15/2022 urina lysis , dipst ick Unknown Analyte Normal = 1.010, 1.015, 1.020 Not Available [address] [place] [address], [place], [address], 07/15/2022 14:33:59 07/16/19 23 07/15/2022 urina lysis , dipst ick Unknown Analyte 1.020 Not Available [address], [place], [address], 07/15/2022 14:33:59 07/16/19 23 07/15/2022 urina lysis , dipst ick Unknown Analyte Normal = Negati ve Not Available [address] [place] [address], [place], [address], 07/15/2022 14:33:59 07/16/19 23 07/15/2022 urina lysis , dipst ick Unknown Analyte Trace- intact Not Available [address] [place] [address], [place], [address], 07/15/2022 14:33:59 07/16/19 23 07/15/2022 urina lysis , dipst ick Unknown Analyte Normal = 6.5, 7.0, 7.5, 8.0 Not Available [address] [place] [address], [place], [address], 07/15/2022 14:33:59 07/16/19 23 07/15/2022 urina lysis , dipst ick Unknown Analyte 7.0 Not Available maegan [address], [place], [address], 07/15/2022 14:33:59 07/16/19 23 07/15/2022 urina lysis , dipst ick Unknown Analyte Normal = Negati ve Not Available arlyn bowers [address], [place], [place], [address], 07/15/2022 14:33:59 07/16/19 23 07/15/2022 urina lysis , dipst ick Unknown Analyte Negati ve Not Available arlyn bowers [address], [place], [place], [address], 07/15/2022 14:33:59 07/16/19 23 07/15/2022 urina lysis , dipst ick Unknown Analyte Normal = 0.2, 1.0 Not Available arlyn bowers [address], [place], [place], [address], 07/15/2022 14:33:59 07/16/19 23 07/15/2022 urina lysis , dipst ick Unknown Analyte 0.2 E.U./d L Not Available arlyn bowers [address], [place], [address], 07/15/2022 14:33:59 07/16/19 23 07/15/2022 urina lysis , dipst ick Unknown Analyte Normal = Negati ve Not Available arlyn bowers [address], [place], [address], 07/15/2022 14:33:59 07/16/19 23 07/15/2022 urina lysis , dipst ick Unknown Analyte Negati ve Not Available arlyn bowers [address], [place], [address], 07/15/2022 14:33:59 07/16/19 23 07/15/2022 urina lysis , dipst ick Unknown Analyte Normal = Negati ve Not Available _[facility] [address] [facility], [place], [address], 07/15/2022 14:33:59 07/16/19 23 07/15/2022 urina lysis , dipst ick Unknown Analyte Negati ve Not Available 2099[facility]n [facility] [address] [facility], [place], [address], 07/15/2022 14:33:59 07/16/19 23 07/15/2022 elect aarti ruizgr am No observ ation record ed. [id number] _[facility] [address], [place], [address], 07/15/2022 15:59:11 Result Notes None recorded. Problems Name Problem SNOMED Code Status Onset Date Resolution Date Notes Provider Name and Address Organization Details Recorded Time Anxiety 33959551 Active 2022 Chana diaz, PA - [facility] 14:07:42 Fibromyalgia 425676034 Active 2022 Chana diaz, PA - [facility] 14:07:57 Arthritis 5275723 Active 2022 Chana Coyle null, PA - [facility] 14:08:03 Hypothyroidism 73095875 Active 2022 Chana Coyle null, PA - [facility] 14:08:11 Sleep apnea 04851918 Active 2022 Ch[facility] diaz, [facility] - [facility] [...] Organization Details LastModified Time 07/15/2022 electrocardiogram completed [id number], [place], [address], 07/15/2022 15:59:11 Procedure Notes None recorded. Medical [...] TAKE ONE-HALF TABLET BY MOUTH EVERY DAY [id number] THEN STOP 07/15 completed Not Available Not [...] height Body mass index (BMI) Body weight Oxygen saturation Oxygen saturation in Arterial blood by Pulse oximetry Heart rate Respiratory rate Body temperature Systolic blood pressure Diastolic blood pressure Provider Name and Address Organization Details Last Updated DateTime 3 162.56 cm 30.9 kg/m2 31200.6 3 g 97 % 97 % 108 /min 18 /min 98 [degF] 139 mm[Hg] 89 mm[Hg] Chana Coyle PA [facility] 14:14:42 Social History Question Answer Notes LastModified by [employer] Details LastModified Time Tobacco Smoking Status Former Smoker Chana diaz PA - [facility] 07/15/2022 14:09:06 When Did You Quit Smoking? 11-15yearssi ncelastcinery foxte Information not available 07/15/2022 Have You Recently Traveled Abroad? No Information not available 07/15/2022 Sex: Unknown Functional Status Question Answer Note LastModified by [employer] Details LastModified Time Do you use any illicit or recreational drugs? No Information not available 07/15/2022 Do you or have you ever used any other forms of tobacco or nicotine? No Information not available 07/15/2022 What is your level of alcohol consumption? Occasional once a month Information not available 07/15/2022 Mental Status None recorded. Family History Relationship [...] SNOMED-CT Code Diagnosis ICD10 Code Diagnosis Note [id number] [address] [address] [place] [address] 03/31/2022 08:30:00 03/31/2022 09:20:42 [id number] [facility] [address] [address] [place] [address] 01/06/2020 13:46:27 01/06/2020 15:52:51 [id number] AMBROSIO DUARTE MD [address] [place] [address] 07/15/2022 13:53:35 07/15/2022 16:15:59 Elevated blood-pressure reading without diagnosis of hypertension 005800741 R03.0 Lightheadedness 86636464 8 R42 Health Concerns Section Related Observation LastModified by Organization Detai ls LastModified Time None Recorded Concern Status LastModified by Organization Details LastModified Time None Recorded Advance Directives Directive None Recorded Payers Insurance Date Sequence Insurance Name Policy Number Policy Moreira Covered Member ID Moreira Member ID Guarantor Name 07/15/2022 1 [employer] - MEDICARE ADVANTAGE PLAN (MEDICARE REPLACEMENT HMO) [id number] Haydee David [id number] Haydee David Notes Date Note Type Note [...] BP and dizziness. AMBROSIO DUARTE MD [address] [facility] [place], [address], PA - [facility] 07/15/2022 17:14:55 OBGyn Episode No OBEpisode recorded.
== END 2024-10-01 14:17 | disposition home or self-care (01) ==
PROVIDERS: PCP Internal Medicine; Visit Provider Physician Assistant
DX: M54.50 Low back pain, unspecified (principal)
CPT/HCPCS: 99024

== ENCOUNTER 2024-10-21 13:17 | Outpatient (AMB) | payer MEDICARE, SELFPAY ==
--- NOTE | 2024-10-21 13:43 | HO.SPINEOV ---
Intake Visit Reasons: 2nd post op with xrays Intake Note: Ms. David is here today for her 2nd post op with x-rays. Test Carrier Required: No Allergies amoxicillin [From Augmentin] Allergy (Verified 09/10/24 08:15) Hives clavulanic acid [From Augmentin] Allergy (Verified 09/10/24 08:15) Hives duloxetine Allergy (Verified 09/10/24 08:15) Hives escitalopram Allergy (Verified 09/10/24 08:15) Unknown fluoxetine Allergy (Verified 09/10/24 08:15) Unknown risedronate sodium Allergy (Verified 09/10/24 08:15) Unknown venlafaxine Allergy (Verified 09/10/24 08:15) Unknown Assessment & Plan Assessment & Plan (1) Lumbago: Code(s): M54.50 - Low back pain, unspecified Category: Medical Plan Procedure: L5-S1 TLIF Haydee is a pleasant 74-year-old female underwent L5-S1 TLIF with Dr. Chen on 09/10/24. Unfortunately she has continued to experience low back pain and now reports a shooting pain down her left lateral leg terminating near the calf. She overall has not made much improvement since her surgery, and states that she essentially has been homebound, only really ambulating around her home and very occasionally going to the store. She is accompanied by her son to this visit today who also attests to this. We had her obtain a set of flexion/extension x-rays during this visit, which shows stable placement of her surgical construct in no notable changes from fluoroscopy. No new neurological deficits. The patient ambulates well and rises from a seated position without difficulty. Her posterior incision sites are closed and well healed. I would like to send Haydee for a CT scan of the lumbar spine to evaluate for exact positioning of her surgical hardware, and rule out common complication such as subsidence. We also discuss the possibility of an MRI, however the patient does not wish to obtain an MRI despite her lumbar radiculopathy as the co-pay through her insurance is fairly high per her report. Given this, she is willing to obtain a CT scan. I will review it when in his complete and call her with an update. If it is unremarkable we discussed having her go for a course of physical therapy. Pastor Chen MD,PhD [facility] Orders: Orders CT lumbar spine wo IV con Today M54.50 - Low back pain, unspecified Coding Level of Care Code Global (70047) Diagnoses Lumbago M54.50
== END 2024-10-21 14:03 | disposition home or self-care (01) ==
LOC: HO.HNS 13:18
PROVIDERS: PCP Internal Medicine; Visit Provider Physician Assistant
DX: M54.50 Low back pain, unspecified (principal)
CPT/HCPCS: 99024

== ENCOUNTER → 2024-10-21 13:21 | Outpatient (BNV) | payer MEDICARE, SELFPAY | PROVIDERS: Visit Provider Radiology Diagnostic Radiology | DX: M41.86 Other forms of scoliosis, lumbar region (principal) | CPT/HCPCS: 72110 ==

== ENCOUNTER 2024-10-21 14:17 | Outpatient (REF) | payer MEDICARE, SELFPAY ==
--- NOTE | ~2024-10-21 | XR_ITS ---
EXAMINATION: XR LUMBAR SPINE 4 OR MORE VIEWS HISTORY: M54.50 - Low back pain, unspecified COMPARISON: Correlation is made with intraoperative fluoroscopic images dated 09/10/2024. FINDINGS: AP, and neutral, flexion, and extension lateral views of the lumbar spine are submitted. Osseous mineralization is normal. The patient is status post posterior fusion of L5 and S1 with pedicle screws, spinal stabilization rods, and an intervertebral spacer. The fusion hardware is intact. The vertebral bodies maintain normal height. There is mild levoscoliosis. There is no spondylolisthesis. There is no abnormal motion with flexion or extension. There is calcification of the abdominal aorta. XR/XR lumbar spine 4V min IMPRESSION: Status post posterior fusion of L5 and S1. Mild levoscoliosis. No abnormal motion with flexion or extension. Electronically signed by: Tomi Granados MD 10/21/2024 01:53 PM EDT
--- OUTSIDE RECORDS SUMMARY | 2024-10-21 14:59 | XMS_ITS | Clinical Summary ---
Author Organization [facility] [address] [place] [address] Address [address] [place] [address] Phone Care Team Providers Care Superintendent Of Schools Name Role Phone Maya Wiggins MD Primary Care Provider [phone] Allergies Active Allergy Reactions Criticality Noted Date [...] as needed (Pain). 60 g 5 Active LORazepam (ATIVAN) 0.5 mg tablet [...] tablet 5 09/24/19 25 Discontinu ed(Reorder ) oxyCODONE-aceta minophen (PERCOCET) 5-325 mg per tablet Take 1 tablet by mouth 2 (two) times a day if needed for severe pain. Max Daily Amount: 2 tablets 56 tablet 5 10/05/19 25 Discontinu ed(Reorder ) Active Problems Problem [...] COPD Obstructive sleep apnea 07/12/2017 Overview (02/12/2024): [facility] Home Polysomnogram: Date 07/10/2017; AHI 5, Unclassified apneas 0; Obstructive apneas 0; Central apneas 0; Mixed apneas 0; hypopneas 26; average oxygen saturation 94% (lowest 89% without saturations <88% for 5% or more of study) [facility] diagnostic polysomnogram 07/15/2021; weight 179; BMI 31. [...] Description 09/13/2024 Telephone Lung Screening Program - [place] [address] [place] [address] Myranda Xiao [place] Appointment 08/30/2024 2:30 PM EDT Office Visit Adult Medicine [address] [phone] Maya Wiggins MD PE (physical exam), annual [...] 10 years. UPPER GASTROINTESTINAL ENDOSCOPY 02/28/2014 PROCEDURE: NE UPPER GI ENDOSCOPY PERFORMED; COMMENT: Visually normal on PPI treatment. Mid esophageal biopsies obtained: normal BREAST SURGERY Bilateral PROCEDURE: NE UNLISTED PROCEDURE BREAST; COMMENT: reduction HAND SURGERY 11/14/2019 Left PROCEDURE: HISTORICAL HAND SURGERY; COMMENT: ORIF left index finger dr. 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 For example, children's ministry director or elderly care for an older adult? [...] Info) Description 11/02/2024 9:15 AM EDT Appointment [facility] Scan [address] [place] [phone] 12/11/2024 2:00 PM EDT Office Visit Adult Medicine [address] [phone] Maya Wiggins MD [address] [place] [address] 12/24/2024 8:30 AM EDT Office Visit Bariatric Surgery - [place] [address] [phone] Ameena Kessler PA [address] [address] Health Maintenance Due Date Last Done Comments [...] LAB CHEMISTRY METHOD 09/02/2024 7:13 PM EDT [facility] Blood Venous blood specimen / Unknown Venipuncture / Unknown 09/02/2024 12:31 PM EDT 09/02/2024 12:32 PM EDT Maya Wiggins MD LAB BLOOD ORDERABLES Final Resul t [facility] [address] [place] [address], [place] [phone] * (ABNORMAL) Lipid panel with reflex to direct LDL (09/02/2024 12:31 PM EDT) Cholesterol 201(H) 0 - 200 mg/dL LAB CHEMISTRY METHOD 09/02/2024 6:20 PM EDT [facility] Triglycerides 218(H) 0 - 150 mg/dL LAB CHEMISTRY METHOD 09/02/2024 6:20 PM EDT [facility] HDL 48 >=40 mg/dL LAB CHEMISTRY METHOD 09/02/2024 6:20 PM EDT [facility] LDL Calculated 109(H) 0 - 100 mg/dL LAB CHEMISTRY METHOD 09/02/2024 6:20 PM EDT [facility] VLDL Cholesterol David 43.6 mg/dL LAB CHEMISTRY METHOD 09/02/2024 6:20 PM EDT [facility] Non HDL Chol. (LDL+VLDL) 153(H) <145 mg/dL LAB CHEMISTRY METHOD 09/02/2024 6:20 PM EDT [facility] Chol/HDL Ratio 4.2 0.0 - 4.4 LAB CHEMISTRY METHOD 09/02/2024 6:20 PM EDT [facility] Blood Venous blood specimen / Unknown Venipuncture / Unknown 09/02/2024 12:31 PM EDT 09/02/2024 12:32 PM EDT us Maya Wiggins MD LAB BLOOD ORDERABLES Final Resul t [facility] [address] [place] [address], * (ABNORMAL) CBC auto differential (09/02/2024 12:31 PM EDT) WBC 5.5 4.8 - 10.8 K/mcL LAB HEMETOLOGY METHOD 09/02/2024 3:05 PM [facility] RBC 4.10 3.80 - 4.80 M/mcL LAB HEMETOLOGY METHOD 09/02/2024 3:05 PM [facility] Hemoglobin 12.7 11.5 - 16.0 g/dL LAB HEMETOLOGY METHOD 09/02/2024 3:05 PM [facility] Hematocrit 37.3 35.0 - 47.0 % LAB HEMETOLOGY METHOD 09/02[facility]24 [facility] MCV 90.8 79.0 - 98.0 FL LAB HEMETOLOGY METHOD 09/02/2024 3:05 PM [facility] MCH 30.9 27.0 - 32.0 pcg LAB HEMETOLOGY METHOD 09/02/2024 3:05 PM [facility] MCHC 34.0 32.0 - 37.0 g/dL LAB HEMETOLOGY METHOD 09/02/2024 3:05 PM [facility] RDW 15.2(H) 11.0 - 15.0 % LAB HEMETOLOGY METHOD 09/02/2024 3:05 PM [facility] Platelets 115(L) 130 - 400 K/mcL LAB HEMETOLOGY METHOD 09/02/2024 3:05 PM [facility] MPV 8.7 7.0 - 11.0 FL LAB HEMETOLOGY METHOD 09/02/2024 3:05 PM [facility] NRBC 0.0 <1.0 % LAB HEMETOLOGY METHOD 09/02/2024 3:05 PM [facility] NRBC Absolute 0.00 <0.10 K/mcL LAB HEMETOLOGY METHOD 09/02/2024 3:05 PM [facility] Neutrophils Relative 71.6 % LAB HEMETOLOGY METHOD 09/02/2024 3:05 PM [facility] Lymphocytes Relative 20.0 % LAB HEMETOLOGY METHOD 09/02/2024 3:05 PM [facility] Monocytes Relative 6.0 % LAB HEMETOLOGY METHOD 09/02/2024 3:05 PM [facility] Eosinophils Relative 1.6 % LAB HEMETOLOGY METHOD 09/02/2024 3:05 PM [facility] Basophils Relative 0.4 % LAB HEMETOLOGY METHOD 09/02/2024 3:05 PM [facility] Immature Granulocytes Relative 0.4 % LAB HEMETOLOGY METHOD 09/02/2024 3:05 PM [facility] Neutrophils Absolute 3.95 1.50 - 7.00 K/mcL LAB HEMETOLOGY METHOD 09/02/2024 3:05 PM [facility] Lymphocytes Absolute 1.10 1.00 - 5.00 K/mcL LAB HEMETOLOGY METHOD 09/02/2024 3:05 PM [facility] Monocytes Absolute 0.33 0.20 - 1.00 K/mcL LAB HEMETOLOGY METHOD 09/02/2024 3:05 PM EDT [facility] Eosinophils Absolute 0.09 0.00 - 0.50 K/[facility] LAB HEMETOLOGY METHOD 09/02/2024 3:05 PM EDT [facility] Basophils Absolute 0.02 0.00 - 0.20 K/[facility] LAB HEMETOLOGY METHOD 09/02/2024 3:05 PM EDT [facility] Immature Granulocytes Absolute 0.02 0.00 - 0.03 K/[facility] LAB HEMETOLOGY METHOD 09/02/2024 3:05 PM EDT [facility] Blood Venous blood specimen / Unknown Venipuncture / Unknown 09/02/2024 12:31 PM EDT 09/02/2024 12:32 PM EDT us Maya Wiggins MD LAB BLOOD ORDERABLES Final Resul t Performing Organization Address City/[facility]/ZIP Co de Phone Number [facility] [address] [place] [address], [place] [phone] * Vitamin D 25 hydroxy (09/02/2024 12:31 PM EDT) Vit D, 25-Hydroxy 34.9 30.0 - 80.0 ng/mL LAB CHEMISTRY METHOD 09/02/2024 7:12 PM EDT [facility] Blood Venous blood specimen / Unknown Venipuncture / Unknown 09/02/2024 12:31 PM EDT 09/02/2024 12:32 PM EDT us Maya Wiggins MD LAB BLOOD ORDERABLES Final Resul t [facility] [address] [place] [address], [place] [phone] * (ABNORMAL) Comprehensive metabolic panel (09/02/2024 12:31 PM EDT) Sodium 141 133 - 145 mmol/L LAB CHEMISTRY METHOD 09/02/2024 6:20 PM [facility] Potassium 3.9 3.5 - 5.5 mmol/L LAB CHEMISTRY METHOD 09/02/2024 6:20 PM [facility] Chloride 107 96 - 110 mmol/L LAB CHEMISTRY METHOD 09/02/2024 6:20 PM [facility] CO2 27 21 - 32 mmol/L LAB CHEMISTRY METHOD 09/02/2024 6:20 PM [facility] Anion Gap 7 3 - 11 LAB CHEMISTRY METHOD 09/02/2024 6:20 PM [facility] Glucose 102(H) 70 - 100 mg/dL LAB CHEMISTRY METHOD 09/02/2024 6:20 PM [facility] BUN 18 5 - 25 mg/dL LAB CHEMISTRY METHOD 09/02/2024 6:20 PM [facility] Creatinine 0.96 0.50 - 1.10 mg/dL LAB CHEMISTRY METHOD 09/02/2024 6:20 PM [facility] eGFR 63 >=60 mL/min/1. 73m2 LAB CHEMISTRY METHOD 09/02/2024 6:20 PM [facility] Comment:Calculation based on the??Chronic Kidney Disease Epidemiology Collaboration (CKD-EPI) equation refit??without adjustment for race. BUN/Creatinine Ratio 18.8 LAB CHEMISTRY METHOD 09/02/2024 6:20 PM [facility] Calcium 9.5 8.5 - 10.5 mg/dL LAB CHEMISTRY METHOD 09/02/2024 6:20 PM [facility] AST (SGOT) 20 10 - 42 unit/L LAB CHEMISTRY METHOD 09/02/2024 6:20 PM [facility] ALT (SGPT) 22 10 - 60 unit/L LAB CHEMISTRY METHOD 09/02/2024 6:20 PM EDT [facility] Alkaline Phosphatase 77 42 - 121 unit/L LAB CHEMISTRY METHOD 09/02/2024 6:20 PM EDT [facility] Total Protein 7.6 6.0 - 8.0 g/dL LAB CHEMISTRY METHOD 09/02/2024 6:20 PM EDT [facility] Albumin 4.0 3.2 - 5.0 g/dL LAB CHEMISTRY METHOD 09/02/2024 6:20 PM EDT [facility] Total Bilirubin 1.3 0.0 - 1.4 mg/dL LAB CHEMISTRY METHOD 09/02/2024 6:20 PM EDT [facility] Blood Venous blood specimen / Unknown Venipuncture / Unknown 09/02/2024 12:31 PM EDT 09/02/2024 12:32 PM EDT Maya Wiggins MD LAB BLOOD ORDERABLES Final Resul t [facility] [address] [place] [address], * Depression Screening (08/29/2023) Depression Screening Abstracted [...] PM EDT Narrative 03/23/2023 1:56 PM EST [facility] Diagnostic Imaging Department [address] [place], [place] [id number] Patient: ??NACHO DAVID ?/Age/Sex: 1950 - 73 - F Unit#: ??[id number] ? Location/Status: ??SPDICATLS/REG CLI ? Mnemonic/Ordering Site: ??CTLUNGLD/SPCT Ordering Physician: ??SUKHJINDER OSHEA MD CT Lung Screening Low Dose - 03/16/23 - Report Status:Signed ADDENDUM Addendum: I was asked to review the patient is on CT lung screen with regards to the subcapsular splenic hematoma. COMPARISON: Outside CT scan of the abdomen dated 10/12/2022 from [place]. Current examination is extremely limited with incomplete [...] contrast. DLP: 163.14 mGy/cm ??CTDIvol: 4.83 mGy Secure-NOKT Iterative reconstruction technique Findings: Chest: There is [...] suggestive of an inflammatory or infectious process. [id number] [id number] G9557 G9551 Dictating Physician: ??JAVIER PARKER MD Electronically Signed by: ??JAVIER PARKER MD Dic Date/Time: ??03/21/23 1759 Sign date/Time: ??03/21/23 1812 Procedure Note Javier Parker MD - 06/20/2023 [facility] Diagnostic Imaging Department [address] [place] [address] Patient: NACHO DAVID /Age/Sex: 1950 - 73 - F Unit#: [id number] Location/Status: SPDICATLS/REG CLI Mnemonic/[facility]ing [facility] Ordering Physician: SUKHJINDER OSHEA MD CT Lung Screening Low Dose - 03/16/23 - Report Status:Signed ADDENDUM Addendum: I was asked to review the patient is on CT lung screen with regards tothe subcapsular splenic hematoma. COMPARISON: Outside CT scan of the abdomen [place]. Current examination is extremely limited with incomplete [...] Findings suggestive of an inflammatory orinfectious process. 13419 G9637 G9557 G9551 Dictating Physician: JAVIER PARKER MD Electronically Signed by: JAVIER PARKER MD Dic Date/Time: 03/21/23 1252 Sign date/Time: 03/21/231811 us Sukhjinder Oshea MD [...] to have osteoporosis by WHO criteria. [facility] Department of Internal Medicine recommends using National [...] alternative screening schedule based on jose Anguiano., [facility] June 02, 2011 for patients with [...] to have osteoporosis by WHO criteria. [facility] Department of Internal Medicine recommendsusing National Osteoporosis [...] alternative screening schedule based on jose Anguiano., [facility] for patients with osteopenia (based [...] to [place] [address] [employer] Care Teams Superintendent Of Schools Relationship Specialty Start Date End Date Maya Wiggins MD [address] [place] [address] PCP - General Internal Medicine 05/22/24
== END 2024-10-21 14:18 | disposition home or self-care (01) ==
LOC: HO.HOSX 14:17
PROVIDERS: Visit Provider Physician Assistant
DX: M54.50 Low back pain, unspecified (principal)
CPT/HCPCS: 72110; 99212

== ENCOUNTER 2024-11-08 09:18 | Outpatient (REF) | payer MEDICARE, SELFPAY ==
--- NOTE | ~2024-11-08 | CT_ITS ---
EXAMINATION: CT LUMBAR SPINE WITHOUT CONTRAST CLINICAL INFORMATION: Persistent low back pain with left radiculopathy following L5-S1 TLIF COMPARISON: X-ray October 21, 2024 TECHNIQUE: Axial imaging was performed from the thoracolumbar junction to the mid to lower sacrum without IV contrast. Coronal and sagittal reformatted images were generated from the original axial data set. ALARA: The examination used one or more of the following radiation dose reduction techniques: Automated exposure control, iterative reconstruction, and/or adjustment of mA and/or KV. DLP: 999 mGY*cm FINDINGS: Bases are clear. There is an 18 mm simple renal cyst that is exophytic, located in the lateral mid right kidney. There is mild to moderate vascular calcification in the aorta and iliac arteries. There are 5 non-rib bearing lumbar segments. Vertebral body height and alignment is preserved. T12-L1: No spinal stenosis or foraminal narrowing. L1-L2: No spinal stenosis or foraminal narrowing. L2-L3: Mild disc bulge and ligamentum flavum thickening is present. There is mild facet degeneration. There is no spinal stenosis and dilatation of foraminal narrowing. L3-L4: Minimal broad-based disc bulge and moderate facet arthropathy does not result in spinal stenosis. There is moderate facet arthropathy. There is minimal foraminal narrowing. L4-L5: The level is obscured by metal artifact. There is disc bulge. There is likely no spinal stenosis. There is minimal foraminal narrowing. L5-S1: Details are moderately obscured by metal artifact. The level is surgically fused with posterior pedicle screws and rods. There is an interbody spacer without subsidence. There is endplate sclerosis and osteophytes, primarily in the anterior region. There is likely mild foraminal narrowing on the right and possibly moderate foraminal narrowing on the left. CT/CT lumbar spine wo IV con IMPRESSION: Contrast resolution in CT is limited for evaluating disc, spinal canal, and neural foramina. MRI is the standard of care. L5-S1: Level is fused with posterior pedicle screws and rods and interbody spacer. There is likely moderate left foraminal narrowing. Electronically signed by: Taiwo Urias MD 11/08/2024 10:46 AM EDT
== END 2024-11-08 09:19 | disposition home or self-care (01) ==
LOC: HO.CT 09:18
PROVIDERS: PCP Internal Medicine; Visit Provider Physician Assistant
DX: M54.50 Low back pain, unspecified (principal)
CPT/HCPCS: 72131

== ENCOUNTER → 2024-11-08 09:20 | Outpatient (BNV) | payer MEDICARE, SELFPAY | PROVIDERS: PCP Internal Medicine; Visit Provider Radiology Diagnostic Radiology | DX: M48.062 Spinal stenosis, lumbar region with neurogenic claudication (principal) | CPT/HCPCS: 72131 ==

== ENCOUNTER 2024-12-18 13:06 | Outpatient (AMB) | payer MEDICARE, SELFPAY ==
--- NOTE | 2024-12-18 13:08 | A.SPINEOV_ITS ---
Intake Visit Reasons: recurring pain after surgery Intake Note: Mrs. David is here today for recurring pain after surgery. Allergies amoxicillin (From Augmentin) Allergy (Verified 09/10/24 08:15) Hives clavulanic acid (From Augmentin) Allergy (Verified 09/10/24 08:15) Hives duloxetine Allergy (Verified 09/10/24 08:15) Hives escitalopram Allergy (Verified 09/10/24 08:15) Unknown fluoxetine Allergy (Verified 09/10/24 08:15) Unknown risedronate sodium Allergy (Verified 09/10/24 08:15) Unknown venlafaxine Allergy (Verified 09/10/24 08:15) Unknown Assessment & Plan Assessment & Plan (1) Lumbago: Code(s): M54.50 - Low back pain, unspecified Category: Medical Plan Mrs. David comes in today once again for a subsequent follow-up for continued low back pain and shooting pains down the lateral aspect of her left lower extremity. To recap she underwent minimally invasive L5-S1 lumbar fusion on 09/10/24. She has had continued new left leg pain since her surgery. She reports the pain is now getting to the point where his quite severe, and is keeping her up at night. She is concerned because she is essentially stuck in her home and is unable to go out and enjoy the weather outside or go to the store without experiencing severe pain when attempting to ambulate. She is now ambulating wi th the assistance of a cane. We reviewed her CT scan which was recently completed which shows stable placement of her surgical instrumentation. I am fairly concerned that she may have some kind of nerve impingement secondary to the surgery, and therefore would like to order her an MRI of the lumbar spine to evaluate for this. I will follow up with the patient after the MRI is complete. Pastor Chen MD,PhD [facility] Orders: Orders MR lumbar spine wo con Today M54.16 - Radiculopathy, lumbar region Coding Level of Care Code Global (20899) Diagnoses Lumbago M54.50
--- OUTSIDE RECORDS SUMMARY | 2024-12-18 13:40 | XMS_ITS | Patient Health Record ---
Author Organization [facility] Address [address] [place] [address] Care Team Providers Care Crutching Contractor Name Role Phone RASTA LR Unavailable [phone] Reason For Referral No Information Plan Of Treatment No Information Insurance Providers Payer Name Payer Address Payer Phone Subscriber Number Group Number Insured Name Patient Relationship to Insured Coverage Start Date Coverage End Date [employer] Advantage [address] [place] [phone] [id number] Haydee David Self - patient is the insured
--- OUTSIDE RECORDS SUMMARY | 2024-12-18 13:40 | XMS_ITS ---
Author Name [facility] Organization Unknown Care Team Organization Name Specialty Phone Email Start Date End Da te [facility] Maya Wiggins Primary Care 07/20/2022 024 [facility] Termed, PROVIDER Primary Care 03/22/202212/13
--- OUTSIDE RECORDS SUMMARY | 2024-12-18 13:40 | XMS_ITS | Clinical Summary ---
Author Organization [facility] [address] [facility] Address [address] [place] [address] Phone Care Team Providers Care Sales Outfitter Name Role Phone Maya Wiggins MD Primary Care Provider [phone] Allergies Active Allergy Reactions Criticality Noted Date Comments Amoxicillin-Pot Clavulanate 02/11/20 20 Duloxetine Itching 07/11/2013 Escitalopram Itching 08/31/2015 Fluoxetine 09/28/2015 Disturbing dreams, nausea Risedronate Sodium 08/03/2005 hives Venlafaxine Itching 11/08/2012 Medications CALCIUM-VITAMIN D3-MAGNESIUM ORAL Take by mouth. CALCIUM-MAGNE SIUM-VITAMIN D 500-250-125 MG-MG-UNIT OR TABS Active levothyroxine (SYNTHROID, LEVOTHROID) 25 mcg tablet TAKE 1 TABLET BY MOUTH DAILY 90 tablet 1 5 Active diclofenac (VOLTAREN) 1 % topical gel Apply 2 g topically 2 (two) times a day if needed (Hand pain). Apply 2 g topically 2 times daily as needed (Pain). 60 g 1 5 Active albuterol HFA (PROAIR HFA ; PROVENTIL HFA ; VENTOLIN HFA) 90 mcg/actuation inhaler Inhale 2 puffs by mouth every 6 (six) hours if needed for wheezing or shortness of breath. 6.7 g 5 Active ibuprofen (ADVIL,MOTRIN) 600 mg tablet Take 1 tablet (600 mg total) by mouth every 6 (six) hours if needed for mild pain or moderate pain. Take 1 Tablet by mouth every 6 hours as needed for Pain. 90 tablet 5 Active sertraline (ZOLOFT) 100 mg tablet Take 2 tablets (200 mg total) by mouth 1 (one) time each day. 180 tablet 1 5 Active gabapentin (NEURONTIN) 100 mg capsule Take 2 capsules (200 mg total) by mouth 3 (three) times a day. 180 capsule 2 5 Active oxyCODONE-aceta minophen (PERCOCET) 5-325 mg per tablet Take 1 tablet by mouth 2 (two) times a day if needed for severe pain. Max Daily Amount: 2 tablets 56 tablet 5 Active LORazepam (ATIVAN) 0.5 mg tablet Take 1 tablet (0.5 mg total) by mouth 2 (two) times a day. Max Daily Amount: 1 mg 58 tablet 5 Active gabapentin (NEURONTIN) 100 mg capsule Take 2 capsules (200 mg total) by mouth 3 (three) times a day. 180 capsule 2 5 11/20/19 25 Discontinu ed(Reorder ) oxyCODONE-aceta minophen (PERCOCET) 5-325 mg per tablet Take 1 tablet by mouth 2 (two) times a day if needed for severe pain. Max Daily Amount: 2 tablets 56 tablet 5 11/30/19 25 Discontinu ed(Reorder ) LORazepam (ATIVAN) 0.5 mg tablet Take 1 tablet (0.5 mg total) by mouth 2 (two) times a day. Max Daily Amount: 1 mg 56 tablet 5 12/17/19 25 Discontinu ed(Reorder ) Active Problems Problem [...] COPD Obstructive sleep apnea 07/12/2017 Overview (02/12/2024): [facility] Home Polysomnogram: Date 07/10/2017; AHI 5, Unclassified apneas 0; Obstructive apneas 0; Central apneas 0; Mixed apneas 0; hypopneas 26; average oxygen saturation 94% (lowest 89% without saturations <88% for 5% or more of study) [facility] diagnostic polysomnogram 07/15/2021; weight 179; BMI [...] Encounters Date Type Department Care Team Description 12/11/2024 2:00 PM EDT Office Visit Adult Medicine [facility] [address] [place] [address] Maya Wiggins MD Age-related osteoporosis without current pathological fracture (Primary Dx); Pain in both hands; Arch pain of left foot; Acquired hypothyroidism; Vitamin D deficiency; Recurrent major depressive disorder, in full remission (CMS/HCC V24); Radiculopathy of lumbosacral region; Generalized anxiety disorder 11/02/2024 8:57 AM EDT - 11/02/2024 11:59 PM EDT Hospital Encounter [facility] CT Scan [address] [place] [address] Former smoker; Encounter for screening for lung cancer Discharge Disposition: Home or Self Care from Last 3 Months Immunizations Name Administration [...] 10 years. UPPER GASTROINTESTINAL ENDOSCOPY 02/28/2014 PROCEDURE: CO UPPER GI ENDOSCOPY PERFORMED; COMMENT: Visually normal on PPI treatment. Mid esophageal biopsies obtained: normal BREAST SURGERY Bilateral PROCEDURE: CO UNLISTED PROCEDURE BREAST; COMMENT: reduction HAND SURGERY 11/14/2019 Left PROCEDURE: HISTORICAL HAND SURGERY; COMMENT: ORIF left index finger dr. 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 For example, child day care center worker or elderly care for an older adult? [...] Sign Reading Time Taken Comments Blood Pressure 132/78 12/11/2024 2:11 PM EDT Pulse 76 12/11/2024 2:11 PM EDT Temperature 36.6 C (97.8 F) 12/11/2024 2:11 PM EDT Respiratory Rate 16 12/11/2024 2:11 PM EDT Oxygen Saturation 98% 12/11/2024 2:11 PM EDT Inhaled Oxygen Concentration - - Weight 84.8 kg (187 lb) 12/11/2024 2:11 PM EDT Height 160 cm (5' 3 ) 12/11/2024 2:11 PM EDT Body Mass Index 33.13 12/11/2024 2:11 PM EDT Plan of Treatment Upcoming Encounters Date Type Department Care Team (Late st Contact Info) Description 12/24/2024 8:30 AM EDT Office Visit Bariatric Surgery - [place] [address] [phone] Ameena Kessler PA [address] [address] 03/26/2025 2:00 PM EST Office Visit Adult Medicine [address] [phone] Maya Wiggins MD [address] [place] [phone] Health Maintenance Due Date Last Done Comments Zoster Vaccines (1 of 2) 2001 Colorectal Cancer Screening: Stool Based Tests (FOBT/FIT) 04/23/2022 Medicare Annual Wellness Visit 04/23/2022 COVID-19 Vaccine ( season) 2024 03/13/2024, 05/05/2023, 08/11/2022, Additional history exists Osteoporosis Screening (Bone Density Screening) 09/19/2024 09/19/2022, 08/31/2016 Influenza Vaccine (#1) 2025 , 05/05/2023, 02/25/2022, Additional history exists Breast Cancer Screening 08/23/2025 08/24/19, 05/06/2022, 03/22/2021, Additional history exists Falls Risk Assessment 08/30/2025 08/30/2024 Social Influencers of Health Screening 08/30/2025 08/30/2024 Lung Cancer Screening (Low Dose CT) 11/02/2025 11/02/2024, 03/23/2023, 02/07/2022, Additional history exists RSV Immunization Adult Patients (1 - 1-dose 75+ series) 2026 DTaP,Tdap,and Td Vaccines (4 - Td or Tdap) 08/30/2026 08/30/2016, 04/28/2012, 02/02/2006 Cholesterol Screening (Lipid Panel) 09/02/2029 09/02/2024, 01/05/2022 Hepatitis C Screening Completed 02/13/2013 Pneumococcal Vaccine: 50+ Years Completed 03/13/2024, 06/21/2021, 03/14/2018 Depression Screening Completed 12/04/2024, 08/29/19 24 HIB Vaccines Aged Out No longer eligi [...] Procedure Name Priority Date/Time Associated Diagnosis Comments CT LUNG SCREENING Routine 11/02/2024 9:0 2 AM EDT Former smoker Encounter for screening for lung cancer LIPID PANEL WITH REFLEX TO DIRECT LDL Routine 09/02/2024 12:31 PM EDT PE (physical exam), annual DEPRESSION SCREENING Routine 08/29/2023 SCREENING MAMMOGRAPHY BI 2-VIEW BREAST INC CAD Routine 08/24/2023 4:11 PM EDT Encounter for screening mammogram for malignant neoplasm of breast DXA BONE DENSITY STUDY 1+ SITS AXIAL SKEL Routine 09/19/2022 2:58 PM EDT Age-related osteoporosis without current pathological fracture HEPATITIS C SCREENING Routine 02/13/2013 from Last 3 Months or Most Recently Relevant to Health Maintenance Results * CT Lung Screening (11/02/2024 9:02 AM EDT) Anatomical Region Laterality Modality Chest Computed Tomogra phy 11/04/2024 4:44 PM EDT Impressions 11/04/2024 4:52 PM EDT Impression: No pulmonary nodules identified. Lung-RADS Category: Lung-RADS 1: No nodules or definitely benign nodules. Continue annual screening with Low Dose Chest CT in 12 months. Telerad ELENA ([id number]) -------- FINAL REPORT -------- Dictated By: Nuha Rodriguez Dictated Date: 11/04/2024 16:44 ET Assigned Physician: Nuha Rodriguez Reviewed and Electronically Signed By: Nuha Rodriguez Signed Date: 11/04/2024 16:52 ET Workstation ID: [id number] Transcribed By: Self Edit Transcribed Date: 11/04/2024 16:44 ET Narrative 11/04/2024 4:52 PM EDT History: 74 year-old 53 pack-year former smoker, asymptomatic, for lung cancer screening. Quit smoking 10 years ago. Comparison: 03/16/23 Technique: Helical volumetric imaging of the thorax was performed, using low- dose technique, without IV contrast. DLP: 158.31 mGy/cm CTDIvol: 4.83 mGy GE Hortaupeed VCT Iterative reconstruction technique Findings: Lungs and Airways: The trachea and central bronchial tree remain patent. No pulmonary nodule is seen. Pleura: No pleural or pericardial effusions are identified. Base of neck, mediastinum and heart: The heart remains normal in size. Moderate coronary artery calcification is again noted. There is no developing thoracic lymphadenopathy. Soft tissues: The overlying soft tissues are unremarkable. Abdomen: This study was performed without contrast and with lower than standard dose. These factors reduce the sensitivity for detection of small lesions in the upper abdomen. The spleen, partially imaged, remains enlarged, at least 16 cm in AP diameter. The small residual subcapsular fluid collection noted on the previous study is no longer seen. An old, healed fracture of the posterior right 10th rib is again noted. Procedure Note Nuha Rodriguez MD - 11/04/2024 History: 74 year-old 53 pack-year former smoker, asymptomatic, for lungcancer screening. Quit smoking 10 years ago. Comparison: 03/16/23 Technique: Helical volumetric imaging of the thorax was performed, usinglow-dose technique, without IV contrast. DLP: 158.31 mGy/cm CTDIvol: 4.83 mGy GE Hortaupeed VCT Iterative reconstruction technique Findings: Lungs and Airways: The trachea and central bronchial tree remain patent. No pulmonary nodule is seen. Pleura: No pleural or pericardial effusions are identified. Base of neck, mediastinum and heart: The heart remains normal in size.Moderate coronary artery calcification is again noted. There is nodeveloping thoracic lymphadenopathy. Soft tissues: The overlying soft tissues are unremarkable. Abdomen: This study was performed without contrast and with lower thanstandard dose. These factors reduce the sensitivity for detection of smalllesions in the upper abdomen. The spleen, partially imaged, remainsenlarged, at least 16 cm in AP diameter. The small residual subcapsularfluid collection noted on the previous study is no longer seen. An old, healed fracture of the posterior right 10th rib is again noted. IMPRESSION: Impression: No pulmonary nodules identified. Lung-RADS Category: Lung-RADS 1: No nodules or definitely benign nodules.Continue annual screening with Low Dose Chest CT in 12 months. Telerad ELENA ([id number]) -------- FINAL REPORT -------- Dictated By: Nuha Rodriguez Dictated Date: 11/04/2024 16:44 ET Assigned Physician: Nuha Rodriguez Reviewed and Electronically Signed By: Nuha Rodriguez Signed Date: 11/04/2024 16:52 ET Workstation ID: [id number] Transcribed By: Self Edit Transcribed Date: 11/04/2024 16:44 ET Ignacia Lacey MD [facility] [place] PROCEDURES Final Result * (ABNORMAL) Lipid panel with reflex to direct LDL (09/02/2024 12:31 PM EDT) Cholesterol 201(H) 0 - 200 mg/dL LAB CHEMISTRY METHOD 09/02/2024 6:20 PM EDT [facility] Triglycerides 218(H) 0 - 150 mg/dL LAB CHEMISTRY METHOD 09/02/2024 6:20 PM EDT [facility] HDL 48 >=40 mg/dL LAB CHEMISTRY METHOD 09/02/2024 6:20 PM EDT [facility] LDL Calculated 109(H) 0 - 100 mg/dL LAB CHEMISTRY METHOD 09/02/2024 6:20 PM EDT [facility] VLDL Cholesterol David 43.6 mg/dL LAB CHEMISTRY METHOD 09/02/2024 6:20 PM EDT [facility] Non HDL Chol. (LDL+VLDL) 153(H) <145 mg/dL LAB CHEMISTRY METHOD 09/02/2024 6:20 PM EDT [facility] Chol/HDL Ratio 4.2 0.0 - 4.4 LAB CHEMISTRY METHOD 09/02/2024 6:20 PM EDT [facility] Blood Venous blood specimen / Unknown Venipuncture / Unknown 09/02/2024 12:31 PM EDT 09/02/2024 12:32 PM EDT us Maya Wiggins MD LAB BLOOD ORDERABLES Final Resul t [facility] [address] [place] [address], [place] [phone] * Depression Screening (08/29/2023) Depression Screening Abstracted [...] interpreted with the aid of computer-aided detection. Comparison is made with 05/06/2022 and as far back as 03/20/2020. History of bilateral reduction mammoplasty. Breast parenchyma is composed of scattered fibroglandular densities. No new suspicious mass, architectural distortion, or suspicious [...] IMG XR PROCEDURES Final Resul t * DXA BONE DENSITY STUDY 1+ SITS AXIAL SKEL (09/19/2022 2:58 PM EDT) Anatomical Region Laterality Modality Bone Densitometr y 08/08/2022 1:46 PM EDT Narrative 09/19/2022 4:40 PM EDT BONE DENSITY (DEXA) Lumbar Spine T-score is -2.7. (SD relative to 20-29 y/o adult) Z-score is -0.5. (SD relative to age matched peers) This is considered osteoporosis by WHO criteria. Left Hip T-score is -2.3. Z-score is -0.4. This is considered osteopenia by WHO criteria. Lateral view the spine demonstrates vertebral heights to be maintained. There is grade 1 spondylolisthesis at L4-5. IMPRESSION: This patient is considered to have osteoporosis by WHO criteria. [facility] Department of Internal Medicine recommends [...] alternative screening schedule based on jose Anguiano., [facility] June 02, 2011 for patients with osteopenia [...] to have osteoporosis by WHO criteria. [facility] Department of Internal Medicine recommendsusing [...] BMD testingevery 15 years Maya Wiggins MD [facility] [place] DXA PROCEDURES Final Result * Hepatitis C Screening (02/13/2013) [facility] Hepatitis C Screening Abstracted Historical Provider HEALTH MAINTENANCE Final Result from Last 3 Months or Most Recently Relevant to Health [place] [id number] [employer]AGE Care Teams Sales Outfitter Relationship Specialty Start Date End Date Maya Wiggins MD [address] [place] [address] [facility] [place] [place] [id number] PCP - General Internal Medicine 05/22/24
--- OUTSIDE RECORDS SUMMARY | 2024-12-18 13:41 | XMS_ITS | Patient Health Record ---
[facility] Harjit luda Zarate Address [address] [place] [address] Care Team Providers Care Supervisor Sewer Maintenance Name Role Phone Shu DE LA CRUZ, Cynthia Lemus Primary Care Provider Susy Goins Unavailable [phone] Allergies No Known Allergies Reason For Referral [...] on an empty stomach Orally Once a day; Duration: 30 day(s) Active Sertraline HCl 100 MG 1 tablet Orally On ce a day; Duration: 30 day(s) Active Immunizations Vaccine Route Administration [...] Problem Status W/U Status Risk Notes Problem Acquired hallux valgus (75143151) Hallux valgus (acquired), left foot (M20.12) Active confirmed Problem Acquired hallux valgus (57390964) Hallux valgus (acquired), right foot (M20.11) Active confirmed Problem Neuropathy (987686077) Neuropathy (G62.9) Active confirmed Plan Of Treatment No Information Insurance Providers Payer Name Payer Address Payer Phone Subscriber Number Group Number Insured Name Patient Relationship to Insured Coverage Start Date Coverage End Date [employer] [place] [employer] Ad[employer]age One [facility] [address] Daijessica LONG whitten [id number] Haydee David Self - patient is the insured Medical (General) History Medical History History ICD Code Anxiety Arthritis Back,Hip,and Knee pain Broken bones Depression Fibromyalgia Headaches/Migraines Keloid/Thick Scar Measles Joint implants/screws Numbness Osteoporosis Reflux ( GERD) Sciatica thyroid Surgical History Surgery Date(Month/Year) Hand Surgery hernia knee surgery mastectomy 11/2014 hernia surgery-mass- no findings 11/2020
== END 2024-12-18 14:04 | disposition home or self-care (01) ==
LOC: HO.HNS 13:07
PROVIDERS: PCP Internal Medicine; Visit Provider Physician Assistant
DX: M54.50 Low back pain, unspecified (principal)
CPT/HCPCS: 99213

== ENCOUNTER → 2024-12-18 13:06 | Outpatient (BNVA) | payer MEDICARE, SELFPAY | PROVIDERS: PCP Internal Medicine; Visit Provider Physician Assistant | DX: M54.50 Low back pain, unspecified (principal) | CPT/HCPCS: 99212 ==

== ENCOUNTER → 2025-01-29 07:50 | Outpatient (BNV) | payer MEDICARE, SELFPAY | PROVIDERS: Visit Provider Radiology Diagnostic Radiology | DX: M48.07 Spinal stenosis, lumbosacral region (principal) | CPT/HCPCS: 72148 ==

== ENCOUNTER 2025-01-29 07:52 | Outpatient (REF) | payer MEDICARE, SELFPAY ==
--- NOTE | ~2025-01-29 | MR_ITS ---
EXAMINATION: MR LUMBAR SPINE WITHOUT CONTRAST CLINICAL INFORMATION: M54.16. Radiculopathy, lumbar region. COMPARISON: Correlated to CT dated November 08, 2024 TECHNIQUE: MRI of the lumbar spine was obtained using routine sequences without contrast. FINDINGS: Last rib-bearing vertebra labeled T12. Paramagnetic field distortion secondary to metallic hardware posterior elements L5-S1. There is a mild hyperintense STIR bone marrow signal in the sacrum and the inferior endplate of L5. There is normal alignment. There is no grouping or clumping of the neural elements of the thecal sac. The conus medullaris ends at superior endplate of L1 with normal signal. T11-12: No disc herniation. No neuroforamina stenosis. T12-L1: Broad-based disc bulging. No central spinal canal or neuroforamina stenosis. L1-2: Broad-based disc bulging. No central spinal canal stenosis. Bilateral neuroforamina narrowing. L2-3: Broad-based disc bulging. No central spinal canal stenosis. Bilateral neuroforamina narrowing. L3-4: Broad-based disc bulging. Facet joint hypertrophy. No central spinal canal stenosis. No gross neuroforamina stenosis. L4-5: Broad-based disc bulging. Facet joint hypertrophy. No central spinal canal stenosis. Bilateral neuroforamina narrowing. L5-S1: Postsurgical changes Prominent epidural fat in a circumferential fashion reducing the AP diameter of the thecal sac. Bilateral neuroforamina stenosis, left greater than right on a degenerative basis. No prevertebral compartment hematoma, mass or fluid collection. Slight asymmetric volume loss right psoas muscle. Spleen appears enlarged. Multifocal exophytic cystic lesions in the right kidney no fully included in the [id number]. MR/MR lumbar spine wo con IMPRESSION: Bone marrow STIR signal abnormality in the sacrum and inferior endplate of L5. Recommend dedicated evaluation of the sacrococcyx to exclude insufficiency fracture. 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 Mild multilevel lumbar spondylosis. Concerning splenomegaly. Electronically signed by: Chaitanya Tabares MD 01/29/2025 08:51 AM EDT
--- OUTSIDE RECORDS SUMMARY | 2025-01-29 07:55 | XMS_ITS | Clinical Summary ---
Author Organization [facility] [address] [facility] Address [address] [place] [address] Phone Care Team Providers Care Telephoto Engineer Name Role Phone Maya Wiggins MD Primary Care Provider [phone] Allergies Active Allergy Reactions Criticality Noted Date [...] a day. 180 capsule 2 5 Active LORazepam (ATIVAN) 0.5 mg tablet [...] Daily Amount: 1 mg 58 tablet 5 01/15/20 25 Discontinu ed(Reorder ) oxyCODONE-aceta minophen (PERCOCET) 5-325 mg per tablet Take 1 tablet by mouth 2 (two) times a day if needed for severe pain. Max Daily Amount: 2 tablets 56 tablet 5 01/28/20 25 Discontinu ed(Reorder ) Active Problems Problem Noted Date Diagnosed Date Hallux valgus (acquired), left foot 01/07/2025 Neuropathy 01/07/2025 Age-related osteoporosis wit hout current pathological fracture [...] that she does not develop adhesive capsulitis. Anxiety 07/15/2022 Arthritis 07/15/2022 CASSY (stress urinary incontinence, female) 2021 Overview [...] COPD Obstructive sleep apnea 07/12/2017 Overview (02/12/2024): [facility] Home Polysomnogram: Date 07/10/2017; AHI 5, Unclassified apneas 0; Obstructive apneas 0; Central apneas 0; Mixed apneas 0; hypopneas 26; average oxygen saturation 94% (lowest 89% without saturations <88% for 5% or more of study) [facility] diagnostic polysomnogram 07/15/2021; weight 179; BMI 31. [...] Encounters Date Type Department Care Team Description 01/22/2025 3:30 PM EDT Consult Orthopedic Surgery - [place] [address] [facility] [address] [place] [address] Iris Sandhu PA Polyarthralgia (Primary Dx); Trigger finger, left middle finger; Trigger finger, left index finger; Trigger finger, right middle finger 12/24/2024 8:30 AM EDT Office Visit Bariatric Surgery [facility] 175 [facility] [address] [place] [address] Ameena Kessler PA Obstructive sleep apnea (Primary Dx); BMI 35.0-35.9,adult 12/24/2024 Telephone Adult [address] [phone] Maya Wiggins MD 12/11/2024 2:00 PM EDT Office Visit Adult [facility] [address] [place] [phone] Maya Wiggins MD Age-related osteoporosis without current pathological fracture (Primary Dx); Pain in both hands; Arch pain of left foot; Acquired hypothyroidism; Vitamin D deficiency; Recurrent major depressive disorder, in full remission (CMS/HCC V24); Radiculopathy of lumbosacral region; Generalized anxiety disorder 11/02/2024 8:57 AM EDT - 11/02/2024 11:59 PM EDT Hospital Encounter [facility] CT Scan [address] [place] [address] Former smoker; Encounter for screening [...] Peripheral neuropathy due to disorder of metabolism ([facility]/HCC V24) 01/27/2021 DX:Peripheral neuropathy d ue to disorder of metabolism ([facility]); COMMENT: hypothyroidism Obstructive sleep apnea DX:Obstr uctive [...] for your loved ones. For example, children's nursery assistant or elderly care for an older adult? [...] Sign Reading Time Taken Comments Blood Pressure 130/72 01/07/2025 10:03 AM EDT Pulse 91 01/07/2025 10:03 AM EDT Temperature 36.7 C (98 F) 01/07/2025 10:03 AM EDT Respiratory Rate 20 01/07/2025 10:03 AM EDT Oxygen Saturation 99% 01/07/2025 10:03 AM EDT Inhaled Oxygen Concentration - - Weight 83.9 kg (185 lb) 01/22/2025 3:21 PM EDT Height 162.6 cm (5' 4.02 ) 01/22/2025 3:21 PM ED T Body Mass Index 31.74 01/22/2025 3:21 PM EDT Plan of Treatment Upcoming Encounters Date Type Department Care Team (Late st Contact Info) Description 02/26/2025 1:45 PM EDT Office Visit Orthopedic Surgery [facility] 250 [address] [facility] [address] [place] [phone] Eren Anders, DPM 175 [facility] [address] [place] [phone] 03/05/2025 10:00 AM EDT Office Visit Orthopedic Surgery [facility] [address] [facility] [address] [place] [phone] Iris Sandhu PA 175 [place] [address] 03/20/2025 9:00 AM EST Nutrition Bariatric Surgery - [place] [address] [phone] Libby Brock, RD [address] [phone] 03/26/2025 2:00 PM EST Office Visit Adult [address] [phone] Maya Wiggins MD [address] [place] [address] 05/19/2025 1:15 PM EST Office Visit Bariatric Surgery - [place] [address] [phone] Ameena Kessler PA [address] [place] [phone] Health Maintenance Due Date Last Done Comments Zoster Vaccines (1 of 2) 2001 Colorectal Cancer Screening: Stool Based Tests (FOBT/FIT) 04/23/2022 Medicare Annual Wellness Visit 04/23/2022 Osteoporosis Screening (Bone Density Screening) 09/19/2024 09/19/2022, 08/31/2016 COVID-19 Vaccine ( season) 2025 03/13/2024, 05/05/2023, 08/11/2022, Additional history exists Influenza Vaccine (#1) 2025 , 05/05/2023, 02/25/2022, Additional history exists Breast Cancer Screening 08/23/2025 08/24/19 24, 05/06/2022, 03/22/2021, Additional history exists Falls Risk [...] Procedure Name Priority Date/Time Associated Diagnosis Comments XR HAND 3+ VIEWS BILAT Routine 01/22/2025 3:[address] LUNG SCREENING Routine 11/02/2024 9:0 2 [...] Recently Relevant to Health Maintenance Results * XR Hand 3+ Views bilat (01/22/2025 3:27 PM EDT) Anatomical Region Laterality Modality Upper Extremities, Hand Bilateral Computed Radiography Narrative 01/22/2025 4:11 PM EDT 3 view x-rays of the bilateral hands show no acute fractures or dislocations, postoperative appearance of the left index finger MCP joint after arthroplasty, diffuse degenerative changes of the DIP, PIP, MCP, radiocarpal joints bilaterally. Soft tissue shadows appear normal. Impression: Degenerative changes of the bilateral hands Iris PARKER IMAlbert XR PROCEDURES Final Result * CT Lung Screening (11/02/2024 9:02 AM EDT) Anatomical Region Laterality Modality Chest Computed Tomogra phy 11/04/2024 4:44 PM EDT Impressions 11/04/2024 4:52 PM EDT Impression: No pulmonary nodules identified. Lung-RADS Category: Lung-RADS 1: No nodules or definitely benign nodules. Continue annual screening with Low Dose Chest CT in 12 months. Telerad [place] ([id number]) -------- FINAL REPORT -------- Dictated By: Nuha Rodriguez Dictated Date: 11/04/2024 16:44 ET Assigned Physician: Nuha Rodriguez Reviewed and Electronically Signed By: Nuha Rodriguez Signed Date: 11/04/2024 16:52 ET Workstation ID: [id number] Transcribed By: Self Edit Transcribed Date: 11/04/2024 16:44 ET Narrative 11/04/2024 4:52 PM EDT History: 74 year-old 53 pack-year former smoker, asymptomatic, for lung cancer screening. Quit smoking 10 years ago. Comparison: 03/16/23 Technique: Helical volumetric imaging of the thorax was performed, using low- dose technique, without IV contrast. DLP: 158.31 mGy/cm CTDIvol: 4.83 mGy Hexagram 49 VCT Iterative reconstruction technique Findings: Lungs and [...] contrast. DLP: 158.31 mGy/cm CTDIvol: 4.83 mGy FidelispeRealtyAPX VCT Iterative reconstruction technique Findings: Lungs and [...] Chest CT in 12 months. Telerad ELENA ([id number]) -------- FINAL REPORT -------- Dictated By: Nuha Rodriguez Dictated Date: 11/04/2024 16:44 ET Assigned Physician: Nuha Rodriguez Reviewed and Electronically Signed By: Nuha Rodriguez Signed Date: 11/04/2024 16:52 ET Workstation ID: [id number] Transcribed By: Self Edit Transcribed Date: 11/04/2024 16:44 ET us Ignacia Lacey MD [facility] CT PROCEDURES Final Result * (ABNORMAL) Lipid panel with reflex to direct LDL (09/02/2024 12:31 PM EDT) Cholesterol 201(H) 0 - 200 mg/dL LAB CHEMISTRY METHOD 09/02/2024 6:20 PM EDT [facility] Triglycerides 218(H) 0 - 150 mg/dL LAB CHEMISTRY METHOD 09/02/2024 6:20 PM EDT [facility] HDL 48 >=40 mg/dL LAB CHEMISTRY METHOD 09/02/2024 6:20 PM EDT [facility] LDL Calculated 109(H) 0 - 100 mg/dL LAB CHEMISTRY METHOD 09/02/2024 6:20 PM EDT [facility] VLDL Cholesterol David 43.6 mg/dL LAB CHEMISTRY METHOD 09/02/2024 6:20 PM EDT [facility] Non HDL Chol. (LDL+VLDL) 153(H) <145 mg/dL LAB CHEMISTRY METHOD 09/02/2024 6:20 PM EDT [facility] Chol/HDL Ratio 4.2 0.0 - 4.4 LAB CHEMISTRY METHOD 09/02/2024 6:20 PM EDT [facility] Blood Venous blood specimen / Unknown Venipuncture / Unknown 09/02/2024 12:31 PM EDT 09/02/2024 12:32 PM EDT us Maya Wiggins MD LAB BLOOD ORDERABLES Final Resul t [facility] [address] [place] [address], * Depression Screening (08/29/2023) Depression Screening Abstracted [...] evidence of malignancy. BI-RADS 1 - negative Rahul Martínez DO IMG XR PROCEDURES Final [...] to have osteoporosis by WHO criteria. [facility] Department of Internal Medicine recommends [...] to have osteoporosis by WHO criteria. [facility] Department of Internal Medicine recommendsusing [...] alternative screening schedule based on jose Anguiano., NEJanuary 2011 for patients with osteopenia (based on hip BMD T-score) is as follows: * advanced osteopenia (T scores -2.00 to -2.49), BMD testing every year * moderate osteopenia (T scores -1.50 to -1.99), BMD testing every 5years mild osteopenia or normal BMD (T scores -1.50 and higher), BMD testingevery 15 years Maya Wiggins MD [facility] DXA PROCEDURES Final Result * Hepatitis C Screening (02/13/2013) [facility] Hepatitis C Screening Abstracted Historical Provider HEALTH MAINTENANCE Final Result from Last 3 Months or Most Recently Relevant to Health [place] [phone] [facility] MEDICARE ADVANTAGE Care Teams Telephoto Engineer Relationship Specialty Start Date End Date Maya Wiggins MD [address] [place] [phone] PCP - General Internal Medicine 05/22/24
--- OUTSIDE RECORDS SUMMARY | 2025-01-29 07:55 | XMS_ITS | Encounter Summary ---
Author Organization [facility] [place] [address] Care Team Providers Care Auditing Clerk Name Role Phone Maya Wiggins MD Primary Care Provider [phone] Reason for Visit * Reason Onset Date Comments Forms/questionnaires 12/24/2024 Encounter Details Date Type Department Care Team (Late st Contact Info) Description 12/24/2024 Telephone Adult Medicine [address] [phone] Maya Wiggins MD [address] [place] [phone] Social History Tobacco Use Types Packs/Day Years [...] for your loved ones. For example, child nutrition manager or elderly care for an older adult? [...] on file documented as of this encounter Progress Notes * Ruthie Corea MA - 12/26/2024 4:08 PM EDT Form completed scanned faxed and mailed to [facility] * Ruthie Corea MA - 12/24/2024 10:07 AM EDT Form with provider to review * Martine Tejeda - 12/24/2024 9:30 AM EDT If patient presents with the one of the forms directly below the direct patient with their forms toMedical Records to be completed by [facility]. All [facility] disability forms ONLY All [facility] requests for Worker's Compensation Motor vehicle accident [facility] Physical forms for long-term housing Life insurance FORMS TO BE COMPLETED IN THE PRACTICE: Type of form: Handicap placard Release of information form ( all sections) has been completed and signed. Yes If this form is for the Registry of Motor Vechicles for a handicap placard or plate is the patient go to be: the new autos delivery driver Is the patient still driving? Yes For what medical problem does the patient need this form completed? Current medical diagnosis Is patients name on the form? Yes Is the patients portion (demographics) of the form completed? Yes Did the patient sign the form? Yes Which provider is form to be completed by? Maya Wiggins MD Patient requesting the form be: Will picker/puller-call when completed: (home) If form is not to be picked up by patient has patient been informed that RELEASE OF INFO form must be signed by them for alternate person to picker/puller form? Yes Patient has been informed that completion will be in 7-10 business days: Yes documented in this encounter Plan of Treatment Upcoming Encounters Date Type Department Care Team (Late st Contact Info) Description 02/26/2025 1:45 PM EDT Office Visit Orthopedic Surgery - [place] [address] [phone] Eren Anders, DPM [address] [phone] 03/05/2025 10:00 AM EDT Office Visit Orthopedic Surgery - [place] 175 [facility] 140 [place] [phone] Iris Sandhu PA 175 [place], [place] [phone] 03/20/2025 9:00 AM EST Nutrition Bariatric Surgery - [place] [address] [phone] Libby Brock, RD [address] [phone] 03/26/2025 2:00 PM EST Office Visit Adult [address] [phone] Maya Wiggins MD [address] [place] [address] 05/19/2025 1:15 PM EST Office Visit Bariatric Surgery - [address] [phone] Ameena Kessler PA 230 [place] [phone] documented as of this encounter Visit Diagnoses Not on filedocumented in this encounter Additional Health Concerns Assessment Noted Time PHQ-9 Depression Total Score: 15 025 10:00 AM EDT documented as of this encounter Care Teams Auditing Clerk Relationship Specialty Start Date End Date Maya Wiggins MD [address] [place] [address] PCP - General Internal Medicine 05/22/24 documented as of this encounter
--- OUTSIDE RECORDS SUMMARY | 2025-01-29 07:55 | XMS_ITS | Patient Health Record ---
[facility] [place] Address [address] [place] [address] Care Team Providers Care Marketing Administrative Assistant Name Role Phone Shu DE LA CRUZ, Cynthia Lemus Primary Care Provider Susy Goins Unavailable [phone] Allergies No Known Allergies Reason For Referral [...] Status Risk Notes Problem Acquired hallux valgus (94584464) Hallux valgus (acquired), left foot (M20.12) Active confirmed Problem Acquired hallux valgus (40190001) Hallux valgus (acquired), right foot (M20.11) Active confirmed Problem Neuropathy (030931023) Neuropathy (G62.9) Active confirmed Plan Of Treatment No Information Insurance Providers Payer Name Payer Address Payer Phone Subscriber Number Group Number Insured Name Patient Relationship to Insured Coverage Start Date Coverage End Date [employer] [place] Medicare [employer]vantage [facility] [address] Daijessica LONG whitten [id number] Haydee David Self - patient is the insured Medical (General) History Medical History History ICD Code Anxiety Arthritis Back,Hip,and Knee pain Broken bones Depression Fibromyalgia Headaches/Migraines Keloid/Thick Scar Measles Joint implants/screws Numbness Osteoporosis Reflux ( GERD) Sciatica thyroid Surgical History Surgery Date(Month/Year) Hand Surgery hernia knee surgery mastectomy 11/2014 hernia surgery-mass- no findings 11/2020
--- OUTSIDE RECORDS SUMMARY | 2025-01-29 07:55 | XMS_ITS | Patient Health Record ---
Author Organization [facility] [address] Address [address] [place] [address] Care Team Providers Care Railcar Carpenter Name Role Phone RASTA LR Unavailable [phone] Reason For Referral No Information Plan Of Treatment No Information Insurance Providers Payer Name Payer Address Payer Phone Subscriber Number Group Number Insured Name Patient Relationship to Insured Coverage Start Date Coverage End Date [employer] [place] Medicare Advantage [address] [place] [phone] [id number] Haydee David Self - patient is the insured
== END 2025-01-29 07:53 | disposition home or self-care (01) ==
LOC: HO.MRI 07:52
PROVIDERS: Visit Provider Physician Assistant
DX: M54.16 Radiculopathy, lumbar region (principal)
CPT/HCPCS: 72148

== ENCOUNTER 2025-02-26 10:20 | Outpatient (AMB) | payer MEDICARE, SELFPAY ==
--- OUTSIDE RECORDS SUMMARY | 2025-01-22 15:30 | XMS_ITS | Encounter Summary ---
Author Organization [facility] [place] [address] Care Team Providers Care Deli Manager Name Role Phone Maya Wiggins MD Primary Care Provider [phone] Reason for Referral * Consultation (Routine) - Closed Specialty Diagnoses / Procedures Referred By Marva diehl Referred To Contact Rheumatology Diagnoses Polyarthralgia Iris Sandhu PA [address] [place] [address] Phone: tel: fax: [facility] [address] [address] Phone: tel: fax: Referral ID Status Reason Start Date Expiration Date V isits Requested Visits Authorized [id number] Closed Specialty Services Required 02/25/2025 02/25/2026 1 1 Reason for Visit * Reason Comments Consult Bilateral hand pain Encounter Details Date Type Department Care Team (Late st Contact Info) Description 01/22/2025 3:30 PM EDT Consult Orthopedic Surgery [facility] [address] [phone] Iris Sandhu PA [address] [place] [address] Polyarthralgia (Primary Dx); Trigger finger, left middle finger; Trigger finger, left index finger; Trigger finger, right middle finger Social History Tobacco Use Types Packs/Day Years [...] for your loved ones. 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 [...] Date Recorded What is your living situation? Unrecognized valu e 08/30/2024 Comments No Sex and Gender Information Value Date Recorded Sex Assigned at Not on file Legal Sex Female 3:59 PM EST Gender Identity Not on file Sexual Orientation Not on file documented as of this encounter Last Filed Vital Signs Vital Sign Reading Time Taken Comments Blood Pressure - - Pulse - - Temperature - - Respiratory Rate - - Oxygen Saturation - - Inhaled Oxygen Concentration - - Weight 83.9 kg (185 lb) 01/22/2025 3:21 PM EDT Height 162.6 cm (5' 4.02 ) 01/22/2025 3:21 PM ED T Body Mass Index 31.74 01/22/2025 3:21 PM EDT documented in this encounter Progress Notes * Maria Guadalupe Hernandez - 01/22/2025 3:30 PM EDTAddended by: MARIA GUADALUPE HERNANDEZ on: 02/25/2025 11:50 AM Modules accepted: Orders * ELENA Manley - 01/22/2025 3:30 PM EDT Date: January 22, 2025 Chief Complaint: Bilateral hand pain, bilateral shoulder pain Date of injury/duration of symptoms: 2 to 3 months HPI: Haydee David is a [id number] 74 y.o. female presenting for bilateral hand pain for 2 or3 months. Reports swelling of her MCP joints of her index, middle, ring fingers. Today her swellinghas slightly improved. She does also report redness surrounding these joints. They are stiff in themorning. Denies any numbness or tingling. She does note triggering of her left hand index and middle finger and right hand middle finger. She feels this is not associated with the pain in her joints.The triggering of her fingers has somewhat improved over the last week. She does notes multiple shoulder injections. Recently was seen by Dr. Aguero a few weeks ago received bilateral steroid injections in the shoulder. Reports that they did not help alleviate her symptoms. She does have past history of right shoulder adhesive capsulitis and degenerative changes of herrotator cuff. She did have past left shoulder rotator cuff repair. Referral from 12/11/2024 reviewed Past Medical History: Diagnosis Date Anxiety state DX:Anxiety state Bronchitis DX:Bronchitis Depressive disorder, not elsewhere classified 04/23/2009 DX:Depressive disorder, not elsewhere classified SCOTT (dyspnea on exertion) 08/04/2017 DX:SCOTT (dyspnea on exertion); COMMENT: Negative nuclear stress test. Likely COPD Dysphagia DX:Dysphagia Esophageal stenosis DX:Esophageal stenosis Essential hypertension, benign 08/03/2005 DX:Essential hypertension, benign Fracture of ankle - DX:Fracture of ankle; COMMENT: LEFT Fracture of wrist -1999 DX:Fracture of wrist; COMMENT: LEFT Idiopathic osteoporosis 02/02/2006 DX:Idiopathic osteoporosis Myalgia and myositis, unspecified 08/03/2005 DX:Myalgia and myositis, unspecified Obstructive sleep apnea DX:Obstructive sleep apnea Peripheral neuropathy due to disorder of metabolism (CMS/HCC V24) 01/27/2021 DX:Peripheral neuropathy due to disorder of metabolism (HCC); COMMENT: hypothyroidism Pulmonary nodules 02/08/2022 DX:Pulmonary nodules; COMMENT: LDCT yearly Pure hypercholesterolemia 01/12/2010 DX:Pure hypercholesterolemia Status post dilation of esophageal narrowing DX:Status post dilation of esophageal narrowing Vomiting DX:Vomiting Past Surgical History: Procedure Laterality Date BREAST SURGERY Bilateral PROCEDURE: PA UNLISTED PROCEDURE BREAST; COMMENT: reduction SECTION PROCEDURE: HISTORICAL DELIVERY; COMMENT: two COLONOSCOPY 03/30/2005 PROCEDURE: HISTORICAL COLONOSCOPY; COMMENT: Dr. Greene - left tics and internal hemorrhoids. Repeat 10 years. HAND SURGERY Left 11/14/2019 PROCEDURE: HISTORICAL HAND SURGERY; COMMENT: ORIF left index finger dr. 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 Mid esophageal biopsies obtained: normal Family History Problem Relation Name Age of Onset Arthritis Mother Heart attack Father in his 70s Arthritis Sister Stroke Maternal Grandmother Other cancer Brother testicular Colon cancer Neg Hx Ovarian cancer Neg Hx Social History Socioeconomic History Marital status: Spouse name: Not on file Number of children: Not on file Years of education: Not on file Highest education level: Not on file Occupational History Not on file Tobacco Use Smoking status: Former Current packs/day: 0.00 Types: Cigarettes Quit date: 05/28/2015 Years since quittin.6 Passive exposure: Never Smokeless tobacco: Never Substance and Sexual Activity Alcohol use: Not Currently Drug use: No Sexual activity: Not on file Comment: sometimes Other Topics Concern Not on file Social History Narrative Not on file Current Outpatient Medications: albuterol HFA (PROAIR HFA ; PROVENTIL HFA ; VENTOLIN HFA) 90 mcg/actuation inhaler, Inhale 2 puffs by mouth every 6 (six) hours if needed for wheezing or shortness of breath., Disp: 6.7 g, Rfl: 0 CALCIUM-VITAMIN D3-MAGNESIUM ORAL, Take by mouth. XZFNJMN-[id number]-KIRRZGG D 500-250-125 MG-MG-UNIT OR TABS, Disp: , Rfl: diclofenac (VOLTAREN) 1 % topical gel, Apply 2 g topically 2 (two) times a day if needed (Hand pain). Apply 2 g topically 2 times daily as needed (Pain)., Disp: 60 g, Rfl: 1 gabapentin (NEURONTIN) 100 mg capsule, Take 2 capsules (200 mg total) by mouth 3 (three) times a day., Disp: 180 capsule, Rfl: 2 ibuprofen (ADVIL,MOTRIN) 600 mg tablet, Take 1 tablet (600 mg total) by mouth every 6 (six) hours if needed for mild pain or moderate pain. Take 1 Tablet by mouth every 6 hours as needed for Pain., Disp: 90 tablet, Rfl: 0 levothyroxine (SYNTHROID, LEVOTHROID) 25 mcg tablet, TAKE 1 TABLET BY MOUTH DAILY, Disp: 90 tablet,Rfl: 1 LORazepam (ATIVAN) 0.5 mg tablet, Take 1 tablet (0.5 mg total) by mouth 2 (two) times a day. Max Daily Amount: 1 mg, Disp: 56 tablet, Rfl: 0 oxyCODONE-acetaminophen (PERCOCET) 5-325 mg per tablet, Take 1 tablet by mouth 2 (two) times a day if needed for severe pain. Max Daily Amount: 2 tablets, Disp: 56 tablet, Rfl: 0 sertraline (ZOLOFT) 100 mg tablet, Take 2 tablets (200 mg total) by mouth 1 (one) time each day., Disp: 180 tablet, Rfl: 1 Allergies Allergen Reactions Amoxicillin-Pot Clavulanate Duloxetine Itching Escitalopram Itching Fluoxetine Disturbing dreams, nausea Risedronate Sodium hives Venlafaxine Itching Objective Focused Exam: Right Upper Extremity Skin intact Fires EPL/FPL/FDP/IO SILT M/R/U hand warm well perfused Negative Tinel's at carpal tunnel Negative Phalen's Tenderness palpation along the MCP joints of the index and ring finger Positive triggering of her middle finger Mild erythema surrounding the MCP joints of the index and ring finger Focused Exam: Left Upper Extremity Skin intact With full composite fist formation fingertip to distal palmar crease distance of 0 cm Fires EPL/FPL/FDP/IO SILT M/R/U hand warm well perfused Negative Tinel's at carpal tunnel Negative Phalen's Tenderness palpation along the MCP joints of index, middle finger with mild swelling and erythema Positive triggering of her index and middle finger. No PIP contracture. Imaging/diagnostic studies: 3 view x-rays of the bilateral hands show no acute fractures or dislocations, postoperative appearance of the left index finger MCP joint after arthroplasty, diffuse degenerative changes of the DIP, PIP, MCP, radiocarpal joints bilaterally. Soft tissue shadows appear normal. Impression: Degenerative changes of the bilateral hands History: Right shoulder pain and limited range of motion. MRI of the right shoulder: A departmental standard shoulder MRI protocol was used. FINDINGS: The acromion process has a type II configuration. There is moderate lateral downsloping. There is mild AC joint degeneration without appreciable associated stress reaction. There is marked supraspinatus tendinopathy with thickening and heterogeneous increased signal intensity. There is a full-thickness or near full-thickness tear at the anterior margin of the distal supraspinatus tendon. There is an irregular fluid bright collection on T2-weighted scans measuring 15 mm in the coronal plane and about 16 mm in the sagittal plane. It contains some heterogeneous intermediate signal intensity material probably reflecting degenerated tendon. There is fairly advanced tendinosis involving the posterior aspect of the supraspinatus tendon but without a tear. There is mild infraspinatus tendinopathy. The subscapularis and long head of biceps tendons are intact. The biceps saman and anchor are intact. There is a moderately large joint effusion. There is fluid distending the subacromial subdeltoid bursa with fluid in the subscapularis and subcoracoid bursa. Bursal fluid probably reflects communication with the joint space. Bursitis could be considered in the appropriate clinical setting. The inferior glenohumeral ligament is poorly delineated and probably thickened, suspicious for adhesive capsulitis. Best estimate of thickness is about 6 mm maximum. IMPRESSION: IMPRESSION: Severe supraspinatus tendinopathy with a full-thickness tear anteriorly and distally. Milder infraspinatus tendinopathy. Possible bursitis. Probable adhesive capsulitis. Medical Decision Making (base on 2 out of 3 elements): Problems Addressed: Moderate- 2 or more stable, chronic illnesses Tests Ordered and/or Reviewed: Moderate-Review of prior external note(s) from each unique source: Referral reviewed, Review of the result of each unique test: Right shoulder MRI reviewed, Ordering ofeach unique test: Bilateral hand x-rays and rheumatoid labs Risk Level: Low risk Assessment: Haydee David presents with bilateral hand pain. I reviewed her images showing diffuse degenerative changes. She does have multiple trigger fingers which do seem to be improving over the last few weeks. I explained the etiology and treatment options for trigger fingers. I offered her a corticosteroid injection however she said she would like to continue to observe as her symptoms have been somewhat improving. She does have slightly swollen and red knuckles. I will send labs to assess for possible rheumatoid or rule out other autoimmune conditions. I will follow-up with her for these results. I did also discuss her bilateral shoulder pain. Discussed that we may repeat corticosteroid injections at a later date or trial some physical therapy. She would like to hold off on therapy for now. We will follow-up after the results of her labs. All her questions were answered today. Plan: Right middle finger trigger finger Continue observation Left middle and index finger trigger finger Continue observation Polyarthralgia of her MCP joints Rheumatoid labs Iris Sandhu PA-C documented in this encounter Plan of Treatment Upcoming Encounters Date Type Department Care Team (Late st Contact Info) Description 03/05/2025 10:00 AM EDT Office Visit Orthopedic Surgery - [address] [phone] Iris Sandhu PA [address] [place] [address] 03/20/2025 9:00 AM EST Nutrition Bariatric Surgery [address] [phone] Libby Brock, RD [address] [phone] 03/26/2025 2:00 PM EST Office Visit Adult [address] [phone] Maya Wiggins MD [address] [place] [phone] 05/19/2025 1:15 PM EST Office Visit Bariatric Surgery [address] [phone] Ameena Kessler PA [address] [place] [phone] Scheduled Referrals Name Type Priority Associated Diagnoses Order Schedule Ambulatory referral to Rheumatology Outpatient Referral Routine Polyarthralgia 1 Occurrences starting 02/25/2025 until 02/25/2026 documented as of this encounter Results * ELVIRA IFA with titer and pattern (02/04/2025 3:29 PM EDT) ELVIRA Negative Negative 02/05/2025 2:02 PM EDT [facility] Comment:ELVIRA performed by ind irect immunofluorescence (IFA) using HEp-2 substrate. Blood Venous blood specimen / Unknown Venipuncture / Unknown 02/04/2025 3:29 PM EDT 02/04/2025 3:29 PM EDT Iris PARKER LAB BLOOD ORDERABLES Final Resu lt Performing Organization Address City/[facility]/ZIP Co de Phone Number [facility] [address] [place] [address], [place] [phone] * C-reactive protein (02/04/2025 3:29 PM EDT) C-Reactive Protein <0.29 <=0.50 mg/dL LAB CHEMISTRY METHOD 02/04/2025 6:41 PM EDT [facility] Blood Venous blood specimen / Unknown Venipuncture / Unknown 02/04/2025 3:29 PM EDT 02/04/2025 3:29 PM EDT Iris PARKER LAB BLOOD ORDERABLES Final Resu lt Performing Organization Address [facility] Co de Phone Number [facility] [address] [place] [address], [place] [phone] * Uric acid (02/04/2025 3:29 PM EDT) Uric Acid 4.1 3.1 - 7.8 mg/dL LAB CHEMISTRY METHOD 02/04/2025 6:41 PM EDT [facility] Blood Venous blood specimen / Unknown Venipuncture / Unknown 02/04/2025 3:29 PM EDT 02/04/2025 3:29 PM EDT Iris PARKER LAB BLOOD ORDERABLES Final Resu lt Performing Organization Address City/[facility]/ZIP Co de Phone Number [facility] [address] [place] [address], [place] [phone] * Sedimentation rate (02/04/2025 3:29 PM EDT) Pathologist [facility] Sed Rate 16 0 - 30 mm/hr LAB HEMETOLOGY METHOD 02/04/2025 7:05 PM EDT [facility] Blood Venous blood specimen / Unknown Venipuncture / Unknown 02/04/2025 3:29 PM EDT 02/04/2025 3:29 PM EDT Iris PARKER LAB BLOOD ORDERABLES Final Resu lt Performing Organization Address City/[facility]/ZIP Co de Phone Number [facility] [address] [place] [address], [place] [phone] * (ABNORMAL) Rheumatoid factor (02/04/2025 3:29 PM EDT) [facility] Rheumatoid Factor 59.0(H) <15.0 I Unit/mL LAB CHEMISTRY METHOD 02/04/2025 6:41 PM EDT [facility] Blood Venous blood specimen / Unknown Venipuncture / Unknown 02/04/2025 3:29 PM EDT 02/04/2025 3:29 PM EDT Iris PARKER LAB BLOOD ORDERABLES Final Resu lt Performing Organization Address City/[facility]/ZIP Co de Phone Number [facility] [address] [place] [address], [place] [phone] documented in this encounter Visit Diagnoses Diagnosis Polyarthralgia- Primary Pain in joint, multiple sites Trigger finger, left middle finger Trigger finger, left index finger Trigger finger, right middle finger documented in this encounter Additional Health Concerns Assessment Noted Time PHQ-9 Depression Total Score: 15 025 10:00 AM EDT documented as of this encounter Care Teams Deli Manager Relationship Specialty Start Date End Date Maya Wiggins MD [address] [place] [address], [place] [phone] PCP - General Internal Medicine 05/22/24 documented as of this encounter
[2025-02-26 10:27] VITALS: BP 122/60; PULSE 108; TEMP 36.7; O2SAT 98; BMI 33.3
--- NOTE | 2025-02-26 10:27 | AM.OFFWIN_ITS ---
Intake Vital Signs 3 02/26/25 10:27 Height 5 ft 3 in Weight 188 lb BMI 33.3 BP 122/60 Blood Pressure Location Lt brachial Position Sitting Pulse 108 H Pulse Source Pulse Oximeter Temp 98.1 F Temp Source Oral Pulse Oximetry (%) 98 Oxygen Delivery Method Room Air Intake Visit Reasons: EP-underneath belly cyst-[phone] Patient Tobacco Use Status: Former Tobacco user Allergies amoxicillin (From Augmentin) Allergy (Verified 02/26/25 10:29) Hives clavulanic acid (From Augmentin) Allergy (Verified 02/26/25 10:29) Hives duloxetine Allergy (Verified 02/26/25 10:29) Hives escitalopram Allergy (Verified 02/26/25 10:29) Unknown fluoxetine Allergy (Verified 02/26/25 10:) Unknown risedronate sodium Allergy (Verified 02/26/25 10:29) Unknown venlafaxine Allergy (Verified 02/26/25 10:29) Unknown Medication List - Last Reconciled 02/26/25 by Sameer Morris MD albuterol sulfate 90 mcg/actuation 2 puffs inhalation Q6H PRN biotin 1 mg PO DAILY calcium carbonate-vitamin D3 600 mg-10 mcg (400 unit) (Calcium 600 with Vitamin D3) 1 tab PO DAILY diclofenac sodium 1% 2 grams topical BID PRN gabapentin 100 mg PO TID levothyroxine 25 mcg PO DAILY@0600 lorazepam 0.5 mg PO BID oxycodone-acetaminophen 5-325 mg 1 tab PO BID PRN sertraline 100 mg PO BID Do you need a note to return to daycare/school/sports/work: No HPI EP-underneath belly cyst-[phone] 2 HPI0 Details Patient is 75-year-old female who developed a boil below umbilicus on abdomen which gotten worse and is now have cellulitis surrounding the boil Patient says that it started few days ago and they have been applying heat to it can mature and drain On examination while is hard there is no fluctuation do it I am starting her on antibiotics patient's is here as well, he will keep an eye on it if her redness got better she may continue with antibiotic and finish If the redness started to spread patient was instructed to go to emergency room Tetanus vaccine was in 2017 [facility] Medical History Back pain YOLANDA (generalized anxiety disorder) Esophageal stenosis Fibromyalgia Osteoporosis Hypercholesterolemia Multiple thyroid nodules SCOTT (dyspnea on exertion) DARCY (obstructive sleep apnea) Pulmonary nodules Dysphagia Lumbosacral radiculopathy Low back pain Arthritis Osteoporosis Depression Anxiety Surgical History Hx of breast reduction, elective Hx of arthroscopic knee surgery Hx of rotator cuff surgery Hx of colonoscopy Social History Household Members: Spouse Housing: House Housing Other:: mobile home Are you a primary associate director career services to a significant other at home: No Do you presently have visiting nurse or other home services: No Alcohol intake: never Comment: aware of trip hazard Patient Tobacco Use Status: Former Tobacco user Tobacco use type: Cigarette Second Hand Smoke Exposure: No service: No Review of Systems Const All systems reviewed & are unremarkable except as noted in HPI and below Physical Exam Vital Signs: Last Vital Signs Temp 98.1 F 02/26/25 10:27 Pulse 108 H 02/26/25 10:27 BP 122/60 02/26/25 10:27 Pulse Ox 98 02/26/25 10:27 Oxygen Delivery Method Room Air 02/26/25 10:27 BMI result Body Mass Index 33.3 Const General: no acute distress Orientation/consciousness: patient oriented x3 Eyes General: appearance normal, both eyes and all related structures Resp Effort & Inspection: normal respiratory effort and able to speak in complete sentences Skin Full body images: 2 1. About 8 in x 4 in long erythematous patch with central boil Neuro General: patient oriented x3 Psych Mental Status: mental status grossly normal Assessment & Plan Assessment & Plan (1) Cellulitis of abdominal wall: Code(s): L03.311 - Cellulitis of abdominal wall Plan Patient is 75-year-old female who developed a boil below umbilicus on abdomen which gotten worse and is now have cellulitis surrounding the boil Patient says that it started few days ago and they have been applying heat to it can mature and drain , there is no fever no chills no nausea no vomiting On examination while is hard there is no fluctuation do it I am starting her on antibiotics patient's is here as well, he will keep an eye on it if her redness got better she may continue with antibiotic and finish If the redness started to spread patient was instructed to go to emergency room Bactrim and doxycycline prescribed for 10 days b.i.d. Area covered with bandage so to avoid friction with garments Tetanus vaccine was in 2017 Medications: New 2 sulfamethoxazole-trimethoprim 800-160 mg (Bactrim DS) 1 tab PO Q12H 20 tabs 0RF doxycycline hyclate 100 mg PO BID 20 caps 0RF 10 days Coding Level of Care Code Est Pt Level 3 (82670) Diagnoses Cellulitis of abdominal wall L03.311
--- OUTSIDE RECORDS SUMMARY | 2025-02-26 12:12 | XMS_ITS | Patient Health Record ---
Author Organization [facility] [address] Address [address] [place] [address] Care Team Providers Care Wool And Pelt Grader Name Role Phone RASTA LR Unavailable [phone] Reason For Referral No Information Plan Of Treatment No Information Insurance Providers Payer Name Payer Address Payer Phone Subscriber Number Group Number Insured Name Patient Relationship to Insured Coverage Start Date Coverage End Date [employer] [place] Medicare Advantage [address] [place] [phone] [id number] Haydee David Self - patient is the insured
--- OUTSIDE RECORDS SUMMARY | 2025-02-26 12:12 | XMS_ITS | Patient Health Record ---
[facility] Harjit luda Zarate Address [address] [facility] [place] [address] Care Team Providers Care Instructional Support Technician Name Role Phone Shu DE LA CRUZ, Cynthia Lemus Primary Care Provider Susy Goins Unavailable [phone] Allergies No Known Allergies Reason For Referral [...] Status Risk Notes Problem Acquired hallux valgus (63553807) Hallux valgus (acquired), left foot (M20.12) Active confirmed Problem Acquired hallux valgus (36881593) Hallux valgus (acquired), right foot (M20.11) Active confirmed Problem Neuropathy (651807433) Neuropathy (G62.9) Active confirmed Plan Of Treatment No Information Insurance Providers Payer Name Payer Address Payer Phone Subscriber Number Group Number Insured Name Patient Relationship to Insured Coverage Start Date Coverage End Date [employer] [place] Medicare Advantage [facility] [address] Daijessica LONG whitten [phone] [id number] Haydee David Self - patient is the insured Medical (General) History Medical History History ICD Code Anxiety Arthritis Back,Hip,and Knee pain Broken bones Depression Fibromyalgia Headaches/Migraines Keloid/Thick Scar Measles Joint implants/screws Numbness Osteoporosis Reflux ( GERD) Sciatica thyroid Surgical History Surgery Date(Month/Year) Hand Surgery hernia knee surgery mastectomy 11/2014 hernia surgery-mass- no findings 11/2020
--- OUTSIDE RECORDS SUMMARY | 2025-02-26 12:12 | XMS_ITS | Clinical Summary ---
Author Organization [facility] [address] [facility] Address [address] [place] [address] Phone Care Team Providers Care Industrial Service Technician Name Role Phone Maya Wiggins MD Primary Care Provider [phone] Allergies Active Allergy Reactions Criticality Noted Date [...] shortness of breath. 6.7 g 5 Active sertraline (ZOLOFT) 100 mg tablet Take 2 tablets (200 mg total) by mouth 1 (one) time each day. 180 tablet 1 5 Active oxyCODONE-aceta minophen (PERCOCET) 5-325 mg per tablet Take 1 tablet by mouth 2 (two) times a day if needed for severe pain. Max Daily Amount: 2 tablets 56 tablet 5 Active LORazepam (ATIVAN) 0.5 mg tablet Take 1 tablet (0.5 mg total) by mouth 2 (two) times a day. Max Daily Amount: 1 mg 56 tablet 5 Active gabapentin (NEURONTIN) 100 mg capsule Take 2 capsules (200 mg total) by mouth 3 (three) times a day. 180 capsule 5 Active ibuprofen (ADVIL,MOTRIN) 600 mg tablet Take 1 tablet (600 mg total) by mouth every 6 (six) hours if needed for mild pain or moderate pain. Take 1 Tablet by mouth every 6 hours as needed for Pain. 90 tablet 5 Active ibuprofen (ADVIL,MOTRIN) 600 mg tablet Take 1 tablet (600 mg total) by mouth every 6 (six) hours if needed for mild pain or moderate pain. Take 1 Tablet by mouth every 6 hours as needed for Pain. 90 tablet 5 02/21/20 25 Discontinu ed(Reorder ) gabapentin (NEURONTIN) 100 mg capsule Take 2 capsules (200 mg total) by mouth 3 (three) times a day. 180 capsule 2 5 02/21/20 25 Discontinu ed(Reorder ) LORazepam (ATIVAN) 0.5 mg tablet Take 1 tablet (0.5 mg total) by mouth 2 (two) times a day. Max Daily Amount: 1 mg 56 tablet 5 02/11/20 25 Discontinu ed(Reorder ) Active Problems Problem [...] COPD Obstructive sleep apnea 07/12/2017 Overview (02/12/2024): [facility] Home Polysomnogram: Date 07/10/2017; AHI 5, Unclassified apneas 0; Obstructive apneas 0; Central apneas 0; Mixed apneas 0; hypopneas 26; average oxygen saturation 94% (lowest 89% without saturations <88% for 5% or more of study) [facility] diagnostic polysomnogram 07/15/2021; weight 179; [...] 3:30 PM EDT Consult Orthopedic Surgery - [place] [address] [facility] [address] [place] [phone] Iris Sandhu PA Polyarthralgia (Primary Dx); Trigger finger, left middle finger; Trigger finger, left index finger; Trigger finger, right middle finger 12/24/2024 8:30 AM EDT Office Visit Bariatric Surgery [facility] [address] [facility] [address] [place] [phone] Ameena Kessler PA Obstructive sleep apnea (Primary Dx); BMI 35.0-35.9,adult 12/24/2024 Telephone Adult Medicine [address] [phone] Maya Wiggins MD 12/11/2024 2:00 PM EDT Office Visit Adult Medicine [address] [phone] Maya Wiggins MD Age-related osteoporosis without current pathological fracture (Primary Dx); Pain in both hands; Arch pain of left foot; Acquired hypothyroidism; Vitamin D deficiency; Recurrent major depressive disorder, in full remission (CMS/[facility] V24); Radiculopathy of lumbosacral region; Generalized anxiety disorder from Last 3 Months Immunizations Immunization Administration Dates Next Due COVID-19 (Moderna/Spikevax) 13yo [...] 10 years. UPPER GASTROINTESTINAL ENDOSCOPY 02/28/2014 PROCEDURE: OR UPPER GI ENDOSCOPY PERFORMED; COMMENT: Visually normal on PPI treatment. Mid esophageal biopsies obtained: normal BREAST SURGERY Bilateral PROCEDURE: OR UNLISTED PROCEDURE BREAST; COMMENT: reduction HAND SURGERY 11/14/2019 Left PROCEDURE: HISTORICAL HAND SURGERY; COMMENT: ORIF left index finger dr. 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 For example, child adolescent psychiatrist or elderly care for an older adult? [...] AM EDT Office Visit Orthopedic Surgery - [place] [address] [facility] [address] [place] [phone] Iris Sandhu PA [address] [place] [address] 03/20/2025 9:00 AM EST Nutrition Bariatric Surgery - [place] [address] [facility] [address] [place] [phone] Libby Brock, ABDIEL [address] [phone] 03/26/2025 2:00 PM EST Office Visit Adult Medicine [facility] [address] [place] [phone] Maya Wiggins MD [address] [place] [phone] 05/19/2025 1:15 PM EST Office Visit Bariatric Surgery - [address] [phone] Ameena Kessler PA [address] [place] [phone] Health Maintenance Due Date Last Done Comments [...] Procedure Name Priority Date/Time Associated Diagnosis Comments CBC WITH AUTO DIFFERENTIAL Routine 02/04/2025 3:29 PM EDT Polyarthralgia COMPREHENSIVE METABOLIC PANEL Routine 02/04/2025 3:29 PM EDT Recurrent major depressive disorder, in full remission (CMS/HCC V24) VITAMIN D 25 HYDROXY Routine 02/04/2025 3:29 PM EDT Vitamin D deficiency THYROID STIMULATING HORMONE WITH REFLEX TO FREE T4 AND FREE T3 Routine 02/04/2025 3:29 PM EDT Acquired hypothyroidism MAGNESIUM Routine 02/04/2025 3:29 PM EDT Pain in both hands RHEUMATOID FACTOR Routine 02/04/2025 3:2 9 PM EDT Polyarthralgia SEDIMENTATION RATE Routine 02/04/2025 3: 29 PM EDT Polyarthralgia URIC ACID Routine 02/04/2025 3:29 PM EDT Polyarthralgia C-REACTIVE PROTEIN Routine 02/04/2025 3: 29 PM EDT Polyarthralgia CBC AND DIFFERENTIAL Routine 02/04/2025 3:29 PM EDT Polyarthralgia ELVIRA IFA WITH TITER AND PATTERN Routine 02/04/2025 3:29 PM EDT Polyarthralgia XR HAND 3+ VIEWS BILAT Routine 01/22/2025 3:[address] LUNG SCREENING Routine 11/02/2024 9:0 2 AM EDT Former smoker Encounter for screening for lung cancer LIPID PANEL WITH REFLEX TO DIRECT LDL Routine 09/02/2024 12:31 PM EDT PE (physical exam), annual HM DEPRESSION SCREENING Routine 08/29/2023 SCREENING MAMMOGRAPHY BI [...] reflex to free t4 and free t3 (02/04/2025 3:29 PM EDT) [facility] TSH 1.62 0.40 - 4.00 mcIU/mL LAB CHEMISTRY METHOD 02/04/2025 7:01 PM EDT [facility] Blood Venous blood specimen / Unknown Venipuncture / Unknown 02/04/2025 3:29 PM EDT 02/04/2025 3:29 PM EDT Maya Wiggins MD LAB BLOOD ORDERABLES Final Resul t Performing Organization Address City/Va Hospital/ZIP Co de Phone Number [facility] [address] [place] [address], [place] [phone] * ELVIRA IFA with titer and pattern (02/04/2025 3:29 PM EDT) [facility] ELVIRA Negative Negative 02/05/2025 2:02 PM EDT [facility] Comment:ELVIRA performed by ind irect immunofluorescence (IFA) using HEp-2 substrate. Blood Venous blood specimen / Unknown Venipuncture / Unknown 02/04/2025 3:29 PM EDT 02/04/2025 3:29 PM EDT Iris PARKER LAB BLOOD ORDERABLES Final Resu lt Performing Organization Address City/Va Hospital/ZIP Co de Phone Number [facility] [address] [place] [address], [place] [phone] * (ABNORMAL) CBC auto differential (02/04/2025 3:29 PM EDT) [facility] WBC 6.9 4.8 - 10.8 K/mcL LAB HEMETOLOGY METHOD 02/04/2025 6:33 PM EDT [facility] RBC 4.20 3.80 - 4.80 M/mcL LAB HEMETOLOGY METHOD 02/04/2025 6:33 PM EDT [facility] Hemoglobin 13.1 11.5 - 16.0 g/dL LAB HEMETOLOGY METHOD 02/04/2025 6:33 PM EDT [facility] Hematocrit 38.7 35.0 - 47.0 % LAB HEMETOLOGY METHOD 02/04/2025 6:33 PM EDT [facility] MCV 91.7 79.0 - 98.0 FL LAB HEMETOLOGY METHOD 02/04/2025 6:33 PM EDT [facility] MCH 31.0 27.0 - 32.0 pcg LAB HEMETOLOGY METHOD 02/04/2025 6:33 PM EDT [facility] MCHC 33.9 32.0 - 37.0 g/dL LAB HEMETOLOGY METHOD 02/04/2025 6:33 PM EDT [facility] RDW 16.8(H) 11.0 - 15.0 % LAB HEMETOLOGY METHOD 02/04/2025 6:33 PM EDT [facility] Platelets 116(L) 130 - 400 K/mcL LAB HEMETOLOGY METHOD 02/04/2025 6:33 PM EDT [facility] MPV 8.6 7.0 - 11.0 FL LAB HEMETOLOGY METHOD 02/04/2025 6:33 PM EDT [facility] NRBC 0.0 <1.0 % LAB HEMETOLOGY METHOD 02/04/2025 6:33 PM EDT [facility] NRBC Absolute 0.00 <0.10 K/mcL LAB HEMETOLOGY METHOD 02/04/2025 6:33 PM [facility] Neutrophils Relative 71.4 % LAB HEMETOLOGY METHOD 02/04/2025 6:33 PM [facility] Lymphocytes Relative 21.3 % LAB HEMETOLOGY METHOD 02/04/2025 6:33 PM [facility] Monocytes Relative 5.0 % LAB HEMETOLOGY METHOD 02/04/2025 6:33 PM [facility] Eosinophils Relative 1.6 % LAB HEMETOLOGY METHOD 02/04/2025 6:33 PM [facility] Basophils Relative 0.4 % LAB HEMETOLOGY METHOD 02/04/2025 6:33 PM [facility] Immature Granulocytes Relative 0.3 % LAB HEMETOLOGY METHOD 02/04/2025 6:33 PM [facility] Neutrophils Absolute 4.90 1.50 - 7.00 K/mcL LAB HEMETOLOGY METHOD 02/04/2025 6:33 PM [facility] Lymphocytes Absolute 1.46 1.00 - 5.00 K/mcL LAB HEMETOLOGY METHOD 02/04/2025 6:33 PM [facility] Monocytes Absolute 0.34 0.20 - 1.00 K/mcL LAB HEMETOLOGY METHOD 02/04/2025 6:33 PM [facility] Eosinophils Absolute 0.11 0.00 - 0.50 K/mcL LAB HEMETOLOGY METHOD 02/04/2025 6:33 PM [facility] Basophils Absolute 0.03 0.00 - 0.20 K/mcL LAB HEMETOLOGY METHOD 02/04/2025 6:33 PM [facility] Immature Granulocytes Absolute 0.02 0.00 - 0.03 K/mcL LAB HEMETOLOGY METHOD 02/04/2025 6:33 PM [facility] Blood Venous blood specimen / Unknown Venipuncture / Unknown 02/04/2025 3:29 PM EDT 02/04/2025 3:29 PM EDT Iris PARKER LAB BLOOD ORDERABLES Final Resu lt Performing Organization Address [facility]/Va Hospital/ZIP Co de Phone Number [facility] [address] [place] [address], [place] [phone] * Vitamin D 25 hydroxy (02/04/2025 3:29 PM EDT) Vit D, 25-Hydroxy 39.7 30.0 - 80.0 ng/mL LAB CHEMISTRY METHOD 02/04/2025 7:01 PM EDT [facility] Blood Venous blood specimen / Unknown Venipuncture / Unknown 02/04/2025 3:29 PM EDT 02/04/2025 3:29 PM EDT Maya Wiggins MD LAB BLOOD ORDERABLES Final Resul t Performing Organization Address [facility] Hospital/ZIP Co de Phone Number [facility] [address] [place] [address], [place] [phone] * Sedimentation rate (02/04/2025 3:29 PM EDT) Pathologist [facility] Sed Rate 16 0 - 30 mm/hr LAB HEMETOLOGY METHOD 02/04/2025 7:05 PM EDT [facility] Blood Venous blood specimen / Unknown Venipuncture / Unknown 02/04/2025 3:29 PM EDT 02/04/2025 3:29 PM EDT Iris PARKER LAB BLOOD ORDERABLES Final Resu lt Performing Organization Address City/Va Hospital/ZIP Co de Phone Number [facility] [address] [place] [address], [place] [phone] * (ABNORMAL) Rheumatoid factor (02/04/2025 3:29 PM EDT) Rheumatoid Factor 59.0(H) <15.0 I Unit/mL LAB CHEMISTRY METHOD 02/04/2025 6:41 PM EDT [facility] Blood Venous blood specimen / Unknown Venipuncture / Unknown 02/04/2025 3:29 PM EDT 02/04/2025 3:29 PM EDT Iris PARKER LAB BLOOD ORDERABLES Final Resu lt Performing Organization Address City/Va Hospital/ZIP Co de Phone Number [facility] [address] [place] [address], [place] [phone] * C-reactive protein (02/04/2025 3:29 PM EDT) [facility] C-Reactive Protein <0.29 <=0.50 mg/dL LAB CHEMISTRY METHOD 02/04/2025 6:41 PM EDT [facility] Blood Venous blood specimen / Unknown Venipuncture / Unknown 02/04/2025 3:29 PM EDT 02/04/2025 3:29 PM EDT us Iris PARKER LAB BLOOD ORDERABLES Final Resu lt [facility] [address] [place] [address], [place] [phone] * Uric acid (02/04/2025 3:29 PM EDT) Uric Acid 4.1 3.1 - 7.8 mg/dL LAB CHEMISTRY METHOD 02/04/2025 6:41 PM EDT [facility] Blood Venous blood specimen / Unknown Venipuncture / Unknown 02/04/2025 3:29 PM EDT 02/04/2025 3:29 PM EDT us Iris PARKER LAB BLOOD ORDERABLES Final Resu lt Performing Organization Address City/Va Hospital/ZIP Co de Phone Number [facility] [address] [place] [address], [place] [phone] * Magnesium (02/04/2025 3:29 PM EDT) Magnesium 2.2 1.9 - 2.6 mg/dL LAB CHEMISTRY METHOD 02/04/2025 6:41 PM EDT [facility] Blood Venous blood specimen / Unknown Venipuncture / Unknown 02/04/2025 3:29 PM EDT 02/04/2025 3:29 PM EDT Maya Wiggins MD LAB BLOOD ORDERABLES Final Resul t Performing Organization Address [facility] Hospital/ZIP Co de Phone Number [facility] [address] [place] [address], [place] [phone] * (ABNORMAL) Comprehensive metabolic panel (02/04/2025 3:29 PM EDT) Pathologist [facility] Sodium 140 133 - 145 mmol/L LAB CHEMISTRY METHOD 02/04/2025 6:42 PM [facility] Potassium 4.1 3.5 - 5.5 mmol/L LAB CHEMISTRY METHOD [facility] Chloride 106 96 - 110 mmol/L LAB CHEMISTRY METHOD 02/04/2025 6:42 PM T [facility] CO2 30 21 - 32 mmol/L LAB CHEMISTRY METHOD 02/04/2025 6:[facility] Anion Gap 4 3 - 11 LAB CHEMISTRY METHOD 02/04/2025 6:42 PM [facility] Glucose 115(H) 70 - 100 mg/dL LAB CHEMISTRY METHOD 02/04/2025 6:[facility] BUN 18 5 - 25 mg/dL LAB CHEMISTRY METHOD 02/04/2025 6:42 PM [facility] Creatinine 1.02 0.50 - 1.10 mg/dL LAB CHEMISTRY METHOD 02/04/2025 6:42 PM [facility] eGFR 58(L) >=60 mL/min/1. 73m2 LAB CHEMISTRY METHOD 02/04/2025 6:42 PM [facility] Comment:Calculation based on the Chronic Kidney Disease Epidemiology Collaboration (CKD-EPI) equation refit without adjustment for race. BUN/Creatinine Ratio 17.6 LAB CHEMISTRY METHOD 02/04/2025 6:42 PM [facility] Calcium 9.5 8.5 - 10.5 mg/dL LAB CHEMISTRY METHOD 02/04/2025 6:42 PM [facility] AST (SGOT) 23 10 - 42 unit/L LAB CHEMISTRY METHOD 02/04/2025 6:42 PM [facility] ALT (SGPT) 22 10 - 60 unit/L LAB CHEMISTRY METHOD 02/04/2025 6:42 PM [facility] Alkaline Phosphatase 86 42 - 121 unit/L LAB CHEMISTRY METHOD 02/04/2025 6:42 PM [facility] Total Protein 7.5 6.0 - 8.0 g/dL LAB CHEMISTRY METHOD 02/04/2025 6:42 PM [facility] Albumin 4.2 3.2 - 5.0 g/dL LAB CHEMISTRY METHOD 02/04/2025 6:42 PM [facility] Total Bilirubin 1.3 0.0 - 1.4 mg/dL LAB CHEMISTRY METHOD 02/04/2025 6:42 PM [facility] Blood Venous blood specimen / Unknown Venipuncture / Unknown 02/04/2025 3:29 PM EDT 02/04/2025 3:29 PM EDT us Maya Wiggins MD LAB BLOOD ORDERABLES Final Resul t [facility] ([facility]) [facility] [address] [place] [address], [place] [phone] * XR Hand 3+ Views bilat (01/22/2025 [...] Impression: Degenerative changes of the bilateral hands us Irsi PARKER IMG XR PROCEDURES Final Result * CT Lung Screening (11/02/2024 9:02 AM EDT) Anatomical Region Laterality Modality Chest Computed Tomogra phy 11/04/2024 4:44 PM EDT Impressions 11/04/2024 4:52 PM EDT Impression: No pulmonary nodules identified. Lung-RADS Category: Lung-RADS 1: No nodules or definitely benign nodules. Continue annual screening with Low Dose Chest CT in 12 months. Shruti PARKER ([id number]) -------- FINAL REPORT -------- Dictated By: Nuha Rodriguez Dictated Date: 11/04/2024 16:44 ET Assigned Physician: Nuha Rodriguez Reviewed and Electronically Signed By: Nuha Rodriguez Signed Date: 11/04/2024 16:52 ET Workstation ID: [id number] Transcribed By: Self Edit Transcribed Date: 11/04/2024 16:44 ET Narrative 11/04/2024 4:52 PM EDT History: 74 year-old 53 pack-year former smoker, asymptomatic, for lung cancer screening. Quit smoking 10 years ago. Comparison: 03/16/23 Technique: Helical volumetric imaging of the thorax was performed, using low- dose technique, without IV contrast. DLP: 158.31 mGy/cm CTDIvol: 4.83 mGy GE [employer] Innov[employer]peed VCT Iterative reconstruction technique Findings: Lungs and [...] DLP: 158.31 mGy/cm CTDIvol: 4.83 mGy GE [employer]ed VCT Iterative reconstruction technique Findings: Lungs and [...] Low Dose Chest CT in 12 months. IR [employer] PA ([id number]) -------- FINAL REPORT -------- Dictated By: Nuha Rodriguez Dictated Date: 11/04/2024 16:44 ET Assigned Physician: Nuha Rodriguez Reviewed and Electronically Signed By: Nuha Rodriguez Signed Date: 11/04/2024 16:52 ET Workstation ID: [id number] Transcribed By: Self Edit Transcribed Date: 11/04/2024 16:44 ET us Ignacia Lacey MD IMG CT PROCEDURES Final Result * (ABNORMAL) Lipid panel with reflex to direct LDL (09/02/2024 12:31 PM EDT) Cholesterol 201(H) 0 - 200 mg/dL LAB CHEMISTRY METHOD 09/02/2024 6:20 PM EDT [facility] Triglycerides 218(H) 0 - 150 mg/dL LAB CHEMISTRY METHOD 09/02/2024 6:20 PM EDT [facility] HDL 48 >=40 mg/dL LAB CHEMISTRY METHOD 09/02/2024 6:20 PM EDT [facility] LDL Calculated 109(H) 0 - 100 mg/dL LAB CHEMISTRY METHOD 09/02/2024 6:20 PM EDT [facility] VLDL Cholesterol David 43.6 mg/dL LAB CHEMISTRY METHOD 09/02/2024 6:20 PM EDT [facility] Non HDL Chol. (LDL+VLDL) 153(H) <145 mg/dL LAB CHEMISTRY METHOD 09/02/2024 6:20 PM EDT [facility] Chol/HDL Ratio 4.2 0.0 - 4.4 LAB CHEMISTRY METHOD 09/02/2024 6:20 PM EDT [facility] Blood Venous blood specimen / Unknown Venipuncture / Unknown 09/02/2024 12:31 PM EDT 09/02/2024 12:32 PM EDT us Maya Wiggins MD LAB BLOOD ORDERABLES Final Resul t [facility] [address] [place] [address], * Depression Screening (08/29/2023) Depression Screening Abstracted [...] to have osteoporosis by WHO criteria. The [facility] Department of Internal Medicine recommends using [...] alternative screening schedule based on jose Anguiano., [facility] June 02, 2011 for patients [...] to have osteoporosis by WHO criteria. The [facility] Department of Internal Medicine recommendsusing National [...] -1.50 and higher), BMD testingevery 15 years us Maya Wiggins MD IMG DXA PROCEDURES Final Result * Hepatitis C Screening (02/13/2013) Hepatitis C Screening Abstracted Historical Provider HEALTH MAINTENANCE Final Result from Last 3 Months or Most Recently Relevant to Health [place] [id number] [employer] Care Teams Industrial Service Technician Relationship Specialty Start Date End Date Maya Wiggins MD [address] [facility] [place] [phone] PCP - General Internal Medicine 05/22/24
--- OUTSIDE RECORDS SUMMARY | 2025-02-26 12:12 | XMS_ITS | Data Portability ---
Author Organization [facility] Address [address] [place] [address] Care Team Providers Care Chief Talent Officer Name Role Phone DARLENE MCCAEB Primary Care Provider Assessment Encounter Date Assessment [...] Lab urinalysis, dipstick 2022 023 [email or web address] 247 _[facility], [address] [place] [address], [phone], 3 15:59:10 glucose, fingerstick , blood 2022 023 [email or web address] 247 _[facility], [address] [place] [address], [phone], 15:59:10 Referral None recorded. Procedures None recorded. Surgeries None recorded. Imaging electrocard iogram 2022 023 [email or web address] 0 _[address], [address], 3 16:15:59 Medication Orders None recorded. Patient TargetsNo targets recorded. Patient Instructions Encounter Date Encounter Id Patient Instructions Last Modified By Organization Details Last Modified Time 07/15/2022 [id number] Try small amount s of clear liquids [...] Note LastModifiedBy Organization Detail LastModifiedTime 07/16/1907/15/2022 gluco se, finge rstic k, blood blood sugar - non fasting 97 mg/dL 80-140 = normal normal Not Available maegan [address] [place], [address], 07/15/2022 15:17:54 07/16/19 23 07/15/2022 gluco se finge rstic k, blood blood sugar - fasting mg/dL 80-125 = normal Not Available maegan [address] [place], [address], 07/15/2022 15:17:54 07/16/19 23 07/15/2022 urina lysis , dipst ick Unknown Analyte Normal = light yellow Not Available arlyn bowers [address] [place], [address], 07/15/2022 14:33:59 07/16/19 23 07/15/2022 urina lysis , dipst ick Unknown Analyte Yellow Not Available maegan [address] [place], [address], 07/15/2022 14:33:59 07/16/19 23 07/15/2022 urina lysis , dipst ick Unknown Analyte Normal = clear Not Available arlyn bowers [address], [place], [address], 07/15/2022 14:33:59 07/16/19 23 07/15/2022 urina lysis , dipst ick Unknown Analyte Clear Not Available [facility] [address], [place], [address], 07/15/2022 14:33:59 07/16/19 23 07/15/2022 urina lysis , dipst ick Unknown Analyte Normal = negati ve Not Available [facility] [address], [place], [address], 07/15/2022 14:33:59 07/16/19 23 07/15/2022 urina lysis , dipst ick Unknown Analyte Negati ve Not Available arlyn bowers [address], [place], [address], 07/15/2022 14:33:59 07/16/19 23 07/15/2022 urina lysis , dipst ick Unknown Analyte Normal = Negati ve Not Available arlyn bowers [address], [place], [address], 07/15/2022 14:33:59 07/16/19 23 07/15/2022 urina lysis , dipst ick Unknown Analyte Negati ve Not Available arlyn bowers [address], [place], [address], 07/15/2022 14:33:59 07/16/19 23 07/15/2022 urina lysis , dipst ick Unknown Analyte Normal = Negati ve Not Available arlyn bowers [address], [place], [address], 07/15/2022 14:33:59 07/16/19 23 07/15/2022 urina lysis , dipst ick Unknown Analyte Negati ve Not Available arlyn bowers [address], [place], [address], 07/15/2022 14:33:59 07/16/19 23 07/15/2022 urina lysis , dipst ick Unknown Analyte Normal = 1.010, 1.015, 1.020 Not Available [facility] [address], [place], [address], 07/15/2022 14:33:59 07/16/19 23 07/15/2022 urina lysis , dipst ick Unknown Analyte 1.020 Not Available [address], [place], [address], 07/15/2022 14:33:59 07/16/19 23 07/15/2022 urina lysis , dipst ick Unknown Analyte Normal = Negati ve Not Available arlyn bowers [address], [place], [address], 07/15/2022 14:33:59 07/16/19 23 07/15/2022 urina lysis , dipst ick Unknown Analyte Trace- intact Not Available [facility] [address], [place], [address], 07/15/2022 14:33:59 07/16/19 23 07/15/2022 urina lysis , dipst ick Unknown Analyte Normal = 6.5, 7.0, 7.5, 8.0 Not Available 2099arlyn bowers [address], [place], [address], 07/15/2022 14:33:59 07/16/19 23 07/15/2022 urina lysis , dipst ick Unknown Analyte 7.0 Not Available maegan [address], [place], [address], 07/15/2022 14:33:59 07/16/19 23 07/15/2022 urina lysis , dipst ick Unknown Analyte Normal = Negati ve Not Available arlyn bowers [address], [place], [address], 07/15/2022 14:33:59 07/16/19 23 07/15/2022 urina lysis , dipst ick Unknown Analyte Negati ve Not Available arlyn bowers [address], [place], [place], [address], 07/15/2022 14:33:59 07/16/19 23 07/15/2022 urina lysis , dipst ick Unknown Analyte Normal = 0.2, 1.0 Not Available arlyn bowers [address], [place], [address], 07/15/2022 14:33:59 07/16/19 23 07/15/2022 urina lysis , dipst ick Unknown Analyte 0.2 E.U./d L Not Available arlyn bowers [address], [place], [place], [address], 07/15/2022 14:33:59 07/16/19 23 07/15/2022 urina lysis , dipst ick Unknown Analyte Normal = Negati ve Not Available arlyn bowers [address], [place], [address], 07/15/2022 14:33:59 07/16/19 23 07/15/2022 urina lysis , dipst ick Unknown Analyte Negati ve Not Available arlyn bowers [address], [place], [address], 07/15/2022 14:33:59 07/16/19 23 07/15/2022 urina lysis , dipst ick Unknown Analyte Normal = Negati ve Not Available [facility] [address] [facility] [place], [place], [address], 07/15/2022 14:33:59 07/16/19 23 07/15/2022 urina lysis , dipst ick Unknown Analyte Negati ve Not Available [facility] [address] [facility], [place], [address], 07/15/2022 14:33:59 07/16/19 23 07/15/2022 elect aarti magallanes am No observ ation record ed. [id number] [facility], [place], [address], 07/15/2022 15:59:11 Result Notes None recorded. Problems Name Problem SNOMED Code Status Onset Date Resolution Date Notes Provider Name and Address Organization Details Recorded Time Anxiety 75538358 Active 2022 Chana diaz, PA - [facility] 14:07:42 Fibromyalgia 603467765 Active 2022 Chana diaz, PA - [facility] 14:07:57 Arthritis 4532969 Active 2022 Chana Coyle null, PA - [facility] 14:08:03 Hypothyroidism 82944264 Active 2022 Chana Coyle null, PA - [facility] 14:08:11 Sleep apnea 44657466 Active 2022 Chana Coyle null, PA - [facility] 14:09:13 Problem Notes None recorded. Procedures Surgical History Date Name Laterality Status Provider Name and Address Organization Details Recorded Time operative procedure on knee completed Chana Coyle PA - [facility] 07/15/2022 14:09:51 hernia repair completed Chana Coyle Nannette A - [facility] 07/15/2022 14:09:56 procedure on shoulder completed Chana Coyle PA - [facility] 07/15/2022 14:10:30 repair of finger completed Chana Coyle PA - [facility] 07/15/2022 14:10:43 Imaging Results None recorded. Procedure Notes None recorded. Medical Equipment None [...] TAKE ONE-HALF TABLET BY MOUTH EVERY DAY [id number] THEN STOP 07/15 completed Not Available Not [...] Heart rate Respiratory rate Body temperature Systolic And Diastolic Provider Name and Address Organization Details Last Updated DateTime 162.56 cm 30.9 kg/m2 56659.6 3 g 8 97 % 97 % 108 /min 18 /min 98 [degF] 139/89 mm[Hg] Chana PARKER [facility] 14:14:42 Social History Question Answer Notes LastModified by [facility] Details LastModified Time Tobacco Smoking Status Former Smoker Chana diaz PA [facility] 07/15/2022 14:09:06 When Did You Quit Smoking? 11-15yearssi ncelastcinery ette Information not available 07/15/2022 Have You Recently Traveled Abroad? No Information not available 07/15/2022 Sex: Unknown Functional Status Question Answer Note LastModified by [facility] Details LastModified Time Do you use any [...] Diagnosis SNOMED-CT Code Diagnosis ICD10 Code Diagnosis IMO Codes Diagnosis Note [id number] [address] [place] [address] 03/31/2022 08:30:00 03/31/2022 09:20:42 [id number] [facility] [address] [place] [address] 01/06/2020 13:46:27 01/06/2020 15:52:51 [id number] AMBROSIO DUARTE MD [address] [place] [address] 07/15/2022 13:53:35 07/15/2022 16:15:59 Elevated blood-pressure reading without diagnosis of hypertension 820740317 R03.0 Lightheadedness 79537408 8 R42 Health Concerns Section Related Observation LastModified by Organization Detai ls LastModified Time None Recorded Concern Status LastModified by Organization Details LastModified Time None Recorded Advance Directives Directive None Recorded Payers Insurance Date Sequence Insurance Name Policy Number Policy Moreira Covered Member ID Moreira Member ID Guarantor Name 07/15/2022 1 [employer] - MEDICARE ADVANTAGE PLAN (MEDICARE REPLACEMENT HMO) [id number] 01 Haydee David [id number] Haydee David Notes Date Note Type Note Provider Name and Address Organization Details Recorded Time 3 text/html Dizziness UCReported by PatientHPIFor associated symptoms, patient reportspopping noise in the ears,ears feel full,unsteadiness, andanxiety or unsteady feelingsbut reportsno blurred vision,no foggy vision,no double vision,no eye pain,no hearing loss,no headache,no nausea,no vomiting, andno facial numbness. For duration, patient reportsintermittent episodes lasting: (few seconds each). For modifying factors, patient reportschange in position. Hypertension UCReported by PatientHPIFor source of patient information, patient reportspatient.The elevated BP was noticed at another Doctor's office. She is receiving no medications for this.ROS as noted in the HPI shakiness x3 days, headache, rapid heart rate, clammy, weak, and unsteady on feet since this am, pt vomited this am as well. Seen by another Doctor today for a back shot but could not get it because her blood press was too high. She was sent here for evaluation of he BP and dizziness. AMBROSIO DUARTE MD [address] [place], [address], PA - [facility] 07/15/2022 17:14:55 OBGyn Episode No OBEpisode recorded.
== END 2025-02-26 11:26 | disposition home or self-care (01) ==
PROVIDERS: Visit Provider Internal Medicine
DX: L03.311 Cellulitis of abdominal wall (principal)

== ENCOUNTER → 2025-02-26 10:20 | Outpatient (BNVA) | payer MEDICARE, SELFPAY | PROVIDERS: Visit Provider Internal Medicine | DX: L03.311 Cellulitis of abdominal wall (principal); L02.221 Furuncle of abdominal wall | CPT/HCPCS: 99212 ==